=== PATIENT | male | born 1930 | race Caucasian/White ===

== ENCOUNTER → 2016-11-07 | Outpatient (REF) | payer MEDICARE, OTHER ==
[~2016-11-07] MED LIST: ACLI400A2 IH; ARFO15VI IH; AZIT250T5 PO; BRIN8DRO OU; BUDE0.5A5 IH; BUDE10.2 IH; CALC500T55 PO; CHOL10002 PO; ENZA40CA PO; FENT1PAT6 TD; FENT1PAT8 TD; FENT1PAT9 TD; FLT11013 INH; FURO40TA4 PO; HYDR-3811 PO; HYDR-757 PO; LEVO750T39 PO; LORA-404 PO; MIRT15TA98 PO; MOME13HF2 IH; POLY17PO2 PO; PRED10TA PO; PRED20TA PO; SPIR25TA PO; TAMS0.4C2 PO; TIOT18CA IH
[2016-11-07 16:34] LABS: MEAN CORPUSCULAR HGB CONC 33.8 g/dL (31.0-37.0); MEAN CORPUSCULAR VOLUME 93 FL (80-100); MEAN PLATELET VOLUME 8.9 FL (6.0-9.5); PLATELET COUNT 269 10^3uL (150-450); WHITE BLOOD COUNT 8.45 10^3uL (4.0-11.0)
[2016-11-07 17:08] LABS: BAND NEUTROPHILS % 1 % (0-6); EOSINOPHILS % 2 % (0-4); LYMPHOCYTES # 1.5 #; MEAN CORPUSCULAR HEMOGLOBIN 31.5 PG (26.0-34.0); MONOCYTES # 0.4 #; MONOCYTES % 5 % (3-11); SEGMENTED NEUTROPHILS % 74 % (51-67); TOTAL CELLS COUNTED 100
[2016-11-07 17:09] LABS: ALBUMIN 3.4 g/dL (3.4-5.0); ANION GAP 13.9 MEQ/L (3-15); CALCULATED IONIZED CALCIUM 4.3 mg/dL (3.8-4.6); MAGNESIUM* 2.4 mg/dL (1.6-2.3); PHOSPHORUS 3.2 mg/dL (2.4-4.9); RBC MORPH NORMAL (NORMAL); TOTAL PROTEIN 6.1 g/dL (6.4-8.5)
== END ==
LOC: LAB 16:19
PROVIDERS: ATTEND Internal Medicine Hematology & Oncology
DX: C61 Malignant neoplasm of prostate (principal)
CPT/HCPCS: 80053; 83615; 83735; 84100; 84153; 85007; 85027

== ENCOUNTER → 2016-11-29 | Outpatient (CLI) | payer MEDICARE, OTHER | LOC: RAD 10:50 | PROVIDERS: ATTEND Internal Medicine Infectious Disease | DX: J98.4 Other disorders of lung (principal); A31.0 Pulmonary mycobacterial infection | CPT/HCPCS: 71270; Q9967 ==

== ENCOUNTER → 2016-12-05 | Outpatient (REF) | payer MEDICARE, OTHER ==
[2016-12-05 15:15] LABS: MEAN CORPUSCULAR HGB CONC 33.5 g/dL (31.0-37.0); MEAN CORPUSCULAR VOLUME 94 FL (80-100); MEAN PLATELET VOLUME 9.1 FL (6.0-9.5); PLATELET COUNT 332 10^3uL (150-450); WHITE BLOOD COUNT 7.04 10^3uL (4.0-11.0)
[2016-12-05 15:22] LABS: ALBUMIN 3.5 g/dL (3.4-5.0); ANION GAP 16.6 MEQ/L (3-15); CALCULATED IONIZED CALCIUM 4.3 mg/dL (3.8-4.6); MAGNESIUM* 2.4 mg/dL (1.6-2.3); PHOSPHORUS 3.5 mg/dL (2.4-4.9); TOTAL PROTEIN 6.4 g/dL (6.4-8.5)
[2016-12-05 15:27] LABS: MEAN CORPUSCULAR HEMOGLOBIN 31.4 PG (26.0-34.0)
[2016-12-05 15:28] LABS: BAND NEUTROPHILS % 0 % (0-6); EOSINOPHILS % 2 % (0-4); LYMPHOCYTES # 1.9 #; MONOCYTES # 1.1 #; MONOCYTES % 16 % (3-11); SEGMENTED NEUTROPHILS % 55 % (51-67); TOTAL CELLS COUNTED 100
[2016-12-05 15:29] LABS: RBC MORPH NORMAL (NORMAL)
== END ==
LOC: LAB 14:43
PROVIDERS: ATTEND Internal Medicine Hematology & Oncology
DX: C61 Malignant neoplasm of prostate (principal)
CPT/HCPCS: 80053; 83615; 83735; 84100; 84153; 85007; 85027

== ENCOUNTER → 2017-01-02 | Outpatient (REF) | payer MEDICARE, OTHER ==
[2017-01-02 14:30] LABS: MEAN CORPUSCULAR HGB CONC 34.5 g/dL (31.0-37.0); MEAN CORPUSCULAR VOLUME 93 FL (80-100); MEAN PLATELET VOLUME 9.3 FL (6.0-9.5); PLATELET COUNT 243 10^3uL (150-450); WHITE BLOOD COUNT 5.14 10^3uL (4.0-11.0)
[2017-01-02 14:45] LABS: ALBUMIN 3.7 g/dL (3.4-5.0); ANION GAP 15.3 MEQ/L (3-15); MAGNESIUM* 2.3 mg/dL (1.6-2.3); PHOSPHORUS 3.2 mg/dL (2.4-4.9); TOTAL PROTEIN 6.6 g/dL (6.4-8.5)
[2017-01-02 14:49] LABS: MEAN CORPUSCULAR HEMOGLOBIN 31.9 PG (26.0-34.0)
[2017-01-02 14:54] LABS: BAND NEUTROPHILS % 1 % (0-6); EOSINOPHILS % 9 % (0-4); LYMPHOCYTES # 1.7 #; MONOCYTES # 0.6 #; MONOCYTES % 12 % (3-11); RBC MORPH NORMAL (NORMAL); SEGMENTED NEUTROPHILS % 45 % (51-67); TOTAL CELLS COUNTED 100
== END ==
LOC: LAB 13:41 → EDSTATUS 13:43 → LAB 13:43
PROVIDERS: ATTEND Internal Medicine Hematology & Oncology
DX: C61 Malignant neoplasm of prostate (principal)
CPT/HCPCS: 80053; 83615; 83735; 84100; 84153; 85007; 85027

== ENCOUNTER → 2017-01-17 | Outpatient (CLI) | payer MEDICARE, OTHER | LOC: RAD 11:32 | PROVIDERS: ATTEND Ophthalmology | DX: H53.132 Sudden visual loss, left eye (principal); H54.12 Blindness, left eye, low vision right eye | CPT/HCPCS: 70544; 70553; A9579 ==

== ENCOUNTER → 2017-01-30 | Outpatient (REF) | payer MEDICARE, OTHER ==
[2017-01-30 13:46] LABS: MEAN CORPUSCULAR HEMOGLOBIN 31.2 PG (26.0-34.0); MEAN CORPUSCULAR HGB CONC 33.4 g/dL (31.0-37.0); MEAN CORPUSCULAR VOLUME 93 FL (80-100); MEAN PLATELET VOLUME 8.9 FL (6.0-9.5); PLATELET COUNT 310 10^3uL (150-450); WHITE BLOOD COUNT 7.41 10^3uL (4.0-11.0)
[2017-01-30 13:49] LABS: BAND NEUTROPHILS % 0 % (0-6); EOSINOPHILS % 4 % (0-4); LYMPHOCYTES # 2.1 #; MONOCYTES # 0.5 #; MONOCYTES % 7 % (3-11); RBC MORPH NORMAL (NORMAL); SEGMENTED NEUTROPHILS % 61 % (51-67); TOTAL CELLS COUNTED 100
[2017-01-30 14:02] LABS: ALBUMIN 3.5 g/dL (3.4-5.0); ANION GAP 15.3 MEQ/L (3-15); MAGNESIUM* 2.4 mg/dL (1.6-2.3); PHOSPHORUS 3.5 mg/dL (2.4-4.9); TOTAL PROTEIN 6.4 g/dL (6.4-8.5)
== END ==
LOC: LAB 13:32
PROVIDERS: ATTEND Internal Medicine Hematology & Oncology
DX: C61 Malignant neoplasm of prostate (principal)
CPT/HCPCS: 80053; 83615; 83735; 84100; 84153; 85007; 85027

== ENCOUNTER → 2017-02-06 | Outpatient (CLI) | payer MEDICARE, OTHER ==
[~2017-02-06] MED LIST changes: +HYDR-4131 PO; -HYDR-757 PO
--- NOTE | 2017-02-06 09:52 | Diagnostic Imaging Report ---
PROCEDURE: CT chest and pelvis with and abdomen with and without contrast. TECHNIQUE: Multiple contiguous axial images were obtained through the chest, abdomen, and pelvis after the uneventful bolus administration of intravenous contrast. Precontrast acquisitions were acquired through the abdomen. INDICATION: Prostate cancer. COMPARISON: Chest CT of 11/29/2016 and the most recent abdominal/pelvic imaging from 07/15/2015. FINDINGS: CT CHEST: There are zones of bronchiectasis in the lingula and right middle lobe, unchanged. Air trapping and COPD are chronic. There is some pleural/parenchymal scarring in the apices, unchanged. Some very slight nodular interstitial opacities in the periphery of the right upper lobe are unchanged. No dominant soft tissue mass. No appreciable thoracic lymphadenopathy. A superficial subcutaneous cyst in the left paramedian at the level of the xiphoid is unchanged, presumed a sebaceous cyst measuring 2.9 cm. No acute appearing soft tissue chest wall pathology. Widespread osteosclerotic bony metastases show no obvious progression. No thoracic effusion or pneumothorax. CT ABDOMEN/PELVIS: There is no abdominal/pelvic retroperitoneal nor mesenteric lymphadenopathy. There is no bowel, biliary, or urinary tract obstruction. The liver, adrenals, pancreas, and spleen are unremarkable. No ascites, abscess, hematoma, or other fluid collection. The widespread osteosclerotic bony metastatic disease shows no substantial change. IMPRESSION: The bony metastatic disease, osteosclerotic in the chest, abdomen, and pelvis, is unchanged. There are no findings to suggest soft tissue metastatic disease on this study. Chronic bronchiectasis, scarring, and air trapping within the lungs are stable. No acute pathology. Dictated by: Dictated on workstation # [id number]
== END ==
LOC: RAD 07:55
PROVIDERS: ATTEND Internal Medicine Hematology & Oncology
DX: C61 Malignant neoplasm of prostate (principal)
CPT/HCPCS: 71260; 74178; Q9967

== ENCOUNTER → 2017-02-07 | Outpatient (CLI) | payer MEDICARE, OTHER ==
--- NOTE | 2017-02-07 13:48 | Diagnostic Imaging Report ---
INDICATION: Prostate cancer surveillance. COMPARISON: Bone scan from 02/25/[address] chest, abdomen and pelvis from 02/06/2017. TECHNIQUE: Anterior and posterior scintigraphic images of the whole body were obtained after the intravenous injection of mCi of Tc-99m MDP. FINDINGS: Numerous foci of abnormal radiopharmaceutical uptake throughout the axial skeleton has not significantly changed since 09/01/2014 examination. However, since most recent bone scan of 02/25/2016, the degree of osseous metastases has progressed. There are multifocal lesions throughout the bilateral ribs, clavicles, thoracic and lumbar vertebral bodies as well as in the pelvis. There are new foci of uptake in the bilateral proximal femurs. IMPRESSION: 1. Progression of osseous metastases throughout the axial skeleton, as well as multiple new osseous metastasis in the proximal femurs. Dictated by: Dictated on workstation # [id number]
== END ==
LOC: RAD 08:09
PROVIDERS: ATTEND Internal Medicine Hematology & Oncology
DX: C61 Malignant neoplasm of prostate (principal)
CPT/HCPCS: 78306; A9503

== ENCOUNTER → 2017-02-24 | Outpatient (REF) | payer MEDICARE, OTHER ==
[~2017-02-24] MED LIST changes: +ABIR250T PO; +ALBU1.25 IH; +ARFO15VI2 IH; +BUDE0.255 IH; +CALC1CAP21 PO; +FENT1PAT10 TD; +GFN600TCR PO; +MIDO10TA PO; +NSTU5 PO; +OMEP40CA36 PO; +OXYC10SY PO; +OXYC1TAB12 PO; +POLY17PO6 PO
== END ==
LOC: LAB 16:02
PROVIDERS: ATTEND Ophthalmology
DX: H53.132 Sudden visual loss, left eye (principal)
CPT/HCPCS: 85652; 86140

== ENCOUNTER 2017-02-28 07:52 | Inpatient (IN) | payer MEDICARE, OTHER ==
[~2017-02-28] VITALS: Ht 177.8 cm; Wt 96.2 kg
[~2017-02-28 07:52] MED LIST changes: -ABIR250T PO; -ALBU1.25 IH; -ARFO15VI2 IH; -BUDE0.255 IH; -CALC1CAP21 PO; -FENT1PAT10 TD; -GFN600TCR PO; -MIDO10TA PO; -NSTU5 PO; -OMEP40CA36 PO; -OXYC10SY PO; -OXYC1TAB12 PO; -POLY17PO6 PO
--- OUTSIDE RECORDS SUMMARY | 2017-02-28 07:58 | XMS REPORT | Summary of Care ---
Author Author Carmen Edmonds, FACP,, Darron F Organization Unknown Address [address] [place], [place] [id number] Phone Unavailable Care Team Providers Care Custom Tailor Name Role Phone Keiko Edmonds, O Unavailable Unavailable Valdez Mobley PP Unavailable Unavailable Unavailable Functional Status Functional Status Health Issues Name Dates Details Functional status health issues are not documented Status: Cognitive Status Health Issues Name Dates Details Cognitive status health issues are not documented Status: Problems Name Dates Details Tinnitus (388.30, H93.19) Status: Active Swelling of lower extremity (729.81, M79.89) Status: Active Chronic obstructive pulmonary disease (496, J44.9) Status: Active Bronchiectasis without complication (494.0, J47.9) Status: Active Internal hemorrhoids (455.0, K64.8) Status: Active Sensorineural hearing loss, 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 Refills: 0 Started 10-Mar-2014 ActiveHydrocodone-Acetaminophen 7.5-325 MG Oral Tablet Refills: 0 Hemanth Aden M.D. Started 11-Dec-2014 ActiveFurosemide 40 MG Oral Tablet TAKE 1 TABLET DAILY. Refills: 0 Started 04-Mar-2015 ActiveSpironolactone 25 MG Oral Tablet Refills: 0 Started 04-Mar-2015 ActiveSimbrinza 1-0.2 % Ophthalmic Suspension Refills: 0 Hemanth Aden M.D. Started 29-Oct-2015 ActiveFentaNYL 50 MCG/HR Transdermal Patch 72 Hour USE DIRECTED. Refills: 0 Hemanth Aden M.D. Started 29-Oct-2015 ActiveSpiriva HandiHaler 18 MCG Inhalation Capsule INHALE CONTENTS OF 1 CAPSULE ONCE DAILY. Quantity: 30 Refills: 5 Hemanth Aden M.D. Started 29-Oct-2015 ActiveDulera 100-5 MCG/ACT Inhalation Aerosol Refills: 0 Hemanth Aden M.D. Started 29-Oct-2015 ActiveTamsulosin HCl - 0.4 MG Oral Capsule Refills: 0 Hemanth Aden M.D. Started 29-Oct-2015 ActiveOxygen hs Refills: 0 Started 26-Jan-2016 ActiveAtivan 0.5 MG Oral Tablet TAKE 1 TABLET 3 TIMES DAILY. Refills: 0 Hemanth Aden M.D. Started 17-Mar-2016 ActiveAlbuterol Sulfate (2.5 MG/3ML) 0.083% Inhalation Nebulization Solution USE 1 UNIT DOSE IN NEBULIZER EVERY 4 TO 6 HOURS NEEDED. Dx: J47.1 Quantity: 1 Refills: 11 Hemanth Aden M.D. Started 17-Mar-2016 Active3 ML Plas Cont (60 Plas Conts) Allergies and Adverse Reactions Name Dates Details Bactericin OINT Status: Active budesonide Status: Active Penicillins Status: Active Past Medical History Name Dates Details History of Incarcerated umbilical hernia (552.1, K42.0) Status: Resolved History of Infective otitis externa (380.10, H60.399) Status: Resolved History of pneumonia (V12.61, Z87.01) Status: Resolved History of Umbilical hernia (553.1, K42.9) Status: Resolved Procedures Procedure Dates Details History of Nasal Endoscopy With Dacryocystorhinostomy Completed:15-Sep-2009 History of Maxillary Sinus Endoscopy With Polypectomy Completed:15-Sep-2009 History of Foot Surgery History of Tonsillectomy History of Cataract Extraction History of Incarcerated Umbilical Hernia Repair For Person Over Age 5 Completed:31-Dec-2015 Procedures not documented Immunization Name Dates Details Immunizations not documented Family History natural daughter Name Dates Details Family history of malignant neoplasm of thyroid (V16.8, Z80.8) Status: Active aunt Name Dates Details Family history of lung disease (V19.8, Z83.6) Status: Active Mother Name Dates Details Family history of stroke (V17.1, Z82.3) Status: Active Family history of myocardial infarction (V17.3, Z82.49) Status: Active Father Name Dates Details Family history of congestive heart failure (V17.49, Z82.49) Status: Active Grandfather Name Dates Details Family history of asthma (V17.5, Z82.5) Status: Active Social History Name Dates Details Smoking StatusFormer smoker Vital Signs Date Test Result Details 17-Mar-2016 14:45 BP Systolic 124 mm[Hg] Status: BP Diastolic 78 mm[Hg] Status: Heart Rate 78 /min Status: O2 SAT 97 % Status: FiO2 flow rate 2 L/min Status: Results Date Description Value Details Results not documented Plan of Care Planned Observations Name Dates Details Planned Goals not documented Goal Planned Encounters Appointment; Provider: Manav Simon On 31-Dec-2015 12:30 Appointment; Provider: Mario Stanton On 15-Sep-2009 08:00 Appointment; Provider: Mario Stanton On 15-Jul-2008 09:00 Instructions Instructions not documented Encounters Appointment; Hemanth Aden Encounter Diagnosis: Problem not documented On 17-Mar-2016 14:45 Appointment; Mario Stanton Encounter Diagnosis: Problem not documented On 15-Feb-2016 14:45 Appointment; Manav Simon Encounter Diagnosis: Problem not documented On 26-Jan-2016 13:15 Appointment; Manav Simon Encounter Diagnosis: Problem not documented On 12-Jan-2016 13:00 Appointment; Manav Simon Encounter Diagnosis: Problem not documented On 29-Dec-2015 10:30 Appointment; Hemanth Aden Encounter Diagnosis: Problem not documented On 24-Dec-2015 13:45 Appointment; Hemanth Aden Encounter Diagnosis: Problem not documented On 29-Oct-2015 14:15 Appointment; Hemanth Aden Encounter Diagnosis: Problem not documented On 13:00 Appointment; Romie Schwab Encounter Diagnosis: Problem not documented On 04-Mar-2015 13:30 Appointment; Hemanth Aden Encounter Diagnosis: Problem not documented On 22-Jan-2015 14:45 Appointment; Hemanth Aden Encounter Diagnosis: Problem not documented On 11-Dec-2014 14:15 Appointment; Hemanth Aden Encounter Diagnosis: Problem not documented On 07-Aug-2014 14:45 Appointment; Hemanth Aden Encounter Diagnosis: Problem not documented On 15:30
[2017-02-28 08:09] LABS: BASOPHILS % (AUTO) 0 % (0-2); EOSINOPHILS % (AUTO) 0 % (0-4); LYMPHOCYTES # (AUTO) 1.4 X10^3; MEAN CORPUSCULAR HEMOGLOBIN 30.9 PG (26.0-34.0); MEAN CORPUSCULAR HGB CONC 32.8 g/dL (31.0-37.0); MEAN CORPUSCULAR VOLUME 94 FL (80-100); MONOCYTES # (AUTO) 1.6 X10^3; MONOCYTES % (AUTO) 13 % (3-11); NEUTROPHILS % (AUTO) 72 % (51-67); PLATELET COUNT 245 10^3uL (150-450); WHITE BLOOD COUNT 12.35 10^3uL (4.0-11.0)
[2017-02-28] MEDS ORDERED: NS IV 500 ML 500 ML IV SCH (08:15)
[2017-02-28 08:22] LABS: ALBUMIN 2.9 g/dL (3.4-5.0); ANION GAP 14.1 MEQ/L (3-15); TOTAL PROTEIN 5.6 g/dL (6.4-8.5)
[2017-02-28] MEDS ORDERED: GFN600TCR PO (08:34)
[2017-02-28] MEDS ORDERED: BUDE0.255 IH (08:34)
[2017-02-28] MEDS ORDERED: ARFO15VI2 IH (08:34)
[2017-02-28] MEDS ORDERED: OXYC10SY PO (08:34)
[2017-02-28] MEDS ORDERED: ABIR250T PO (08:34)
[2017-02-28] MEDS ORDERED: MIDO10TA PO (08:34)
[2017-02-28] MEDS ORDERED: OMEP40CA36 PO (08:34)
[2017-02-28] MEDS ORDERED: AZIT250T5 PO (08:34)
--- NOTE | 2017-02-28 09:02 | Diagnostic Imaging Report ---
INDICATION: Shortness of breath and chest pain. TECHNIQUE: A frontal chest was obtained at 0842 hours. COMPARISON: 03/14/2016. FINDINGS: There are scattered sclerotic changes in the visualized bony structures, compatible with bony metastatic disease. The heart is mildly enlarged. There is some patchy infiltrate or atelectasis in both lung bases. There is no pneumothorax or pleural fluid. IMPRESSION: Mild cardiomegaly. Patchy infiltrate versus atelectasis in both lung bases which appears at least partially chronic compared to the previous study. There are sclerotic bony changes overlying the rib cage and thoracic spine, compatible with bony metastatic disease. Correlate with the recent CT study of 02/06/2017. Dictated by: Dictated on workstation # [id number]
--- NOTE | 2017-02-28 09:17 | NUR ---
PT O2 SATS REMAIN MID 90S SO O2 DECREASED TO 1L/NC LEFT IN PT MOUTH HE CONT TO MOUTH BREATHE. DAUGHTER AT BEDSIDE. PT HAS [address] ON RT BACK ON ARRIVAL TO ED TOTALING 100MCG. ORAL MOIST SWABS USED FREQ FOR PT DRY MOUTH. CL
[2017-02-28] MEDS ORDERED: MEROPENEM 500 MG in SODIUM CHLORIDE 50 ML IV ONE (10:05)
--- NOTE | 2017-02-28 10:12 | NUR ---
PT REQUESTS FOOD. DR JULITO HASSAN MEAL TRAY. CL
[2017-02-28 10:44] LABS: BILIRUBIN,URINE Negative (Negative); CLARITY,URINE Clear; COLOR,URINE Dark Yellow; GLUCOSE, URINE (UA) Negative (Negative); LEUKOCYTE ESTERASE ,URINE Negative (Negative); PH,URINE 5.5 (5.0 - 8.0); URINE CENTRIFUGED VOLUME 12 mL
[2017-02-28 10:49] LABS: RBC,URINE None Seen /HPF
--- NOTE | 2017-02-28 10:55 | NUR ---
LOLA TEXTED TO CALL THIS RN FOR PT REPORT GOING TO RM 310. CL
[2017-02-28 11:54] VITALS: BP 129/73
--- NOTE | 2017-02-28 12:33 | NUR ---
patient arrives to room 310. admission assessment in process
[2017-02-28] MEDS ORDERED: FENT1PAT10 TD (13:09)
[2017-02-28] MEDS ORDERED: NSTU5 PO (13:16)
[2017-02-28] MEDS ORDERED: FURO40TA4 PO (13:16)
[2017-02-28] MEDS ORDERED: OXYC1TAB12 PO (13:16)
[2017-02-28] MEDS ORDERED: HYDR-3811 PO (13:16)
[2017-02-28] MEDS ORDERED: POLY17PO6 PO (13:16)
[2017-02-28] MEDS ORDERED: CALC1CAP21 PO (13:16)
[2017-02-28] MEDS ORDERED: ALBU1.25 IH (13:16)
--- NOTE | 2017-02-28 13:35 | NUR ---
Med Rec completed via list from Mustapha Moreau.
--- NOTE | 2017-02-28 14:03 | History and Physical (E) ---
History & Physical PCP: Dr. Itz Davidson CC: Acute respiratory Distress, Pneumonia HPI: Pranav is a 86 year old male who comes to the ED for acute respiratory distress, SOA , CXR shows pneumonia, Oxygen sats 84% this am on 2l/NC. He comes in from [facility]. PMH: COPD Asthma Chronic bronchitis Skin and prostate cancer Bone cancer- Stage , Dr Davidson Temporal Arteritis- Dr Yoo Metastatic prostate cancer History of tobacco abuse Constipation Chronic back pain Glaucoma History of pneumonia Iliac vein DVT BPH Periumbilical hernia Herpetic neuralgia Hemorrhoids Pancreatic cyst (has seen Dr. 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 HOME MEDICATIONS: Please see list at end of report. FH Father had CHF, mother had CVA, Alzheimer's and asthma. SH: Lives independently, alone, in his own home in [place]. Daughter and ex- live outside of [facility]. Quit smoking in his 30's. Drinks beer occasionally, more in the summer. No drug use. Still drives. Has a cat at home. ROS CONSTITUTION: Denies weight loss or gain. Denies fever or chills. HEENT: No change in vision or hearing. No sores in mouth, sore throat. CV: No chest pain, palpitations. PULM: Endorses shortness of breath, difficulty breathing. GI: No upset stomach, nausea, vomiting, constipation, or diarrhea. No blood in stool. : No dysuria. No blood in urine. MS: No new muscle or joint aches and pains. NEURO: No numbness or tingling. No weakness. INTEG: No rashes, lesions, or sores. ENDO: No heat or cold intolerance. No polydipsia or polyuria. HEME/LYMPH: No easy bruising or bleeding. No swollen glands. PSYCH: No change in mood or behavior. OBJECTIVE Vitals: Vital Signs Date Time Temp Pulse Resp B/P Pulse Ox O2 Delivery O2 Flow Rate FiO2 02/28/17 11:54 97.8 93 20 92 Room air 02/28/17 08:18 2 02/28/17 08:03 91/43 GEN: Awake, alert, oriented, NAD HEENT: EOMI, PERRL, moist oral mucosa. CV: RRR S1 S2 normal with no murmur LUNGS: CTA B ABD: Soft, NT/ND with normal bowel sounds. EXTR: No C/C/E. Normal peripheral pulses. INTEG: No rash. NEURO: No focal motor neuro deficit. Weight: 92.4 kg LABS: Laboratory Results Past 24 Hrs 02/28/17 07:38: Alanine Aminotransferase (ALT/SGPT) 24, Albumin 2.9, Albumin/Globulin Ratio 1.074, Alkaline Phosphatase 632, Anion Gap 14.1, Aspartate Amino Transf (AST/ SGOT) 15, BUN/Creatinine Ratio 20, Basophils # (Auto) 0.0, Basophils (%) (Auto) 0, Blood Urea Nitrogen 21, C-Reactive Protein 22.20, Calcium Level 8.1, Calcium/ Ionized Calcium Ratio 4.0, Calculated Osmolality 273, Carbon Dioxide Level 26, Chloride Level 102, Creatinine 1.03, Eosinophils # (Auto) 0.0, Eosinophils (%) ( Auto) 0, Erythrocyte Sedimentation Rate 72, Estimat Glomerular Filtration Rate 83.2, Estimated GFR (Non- 68.8, Glucose Level 158, Hematocrit 32.60, Hemoglobin 10.7, Lymphocytes # (Auto) 1.4, Lymphocytes (%) (Auto) 12, Mean Corpuscular Hemoglobin 30.9, Mean Corpuscular Hemoglobin Concent 32.8, Mean Corpuscular Volume 94, Mean Platelet Volume 9.0, Monocytes # (Auto) 1.6, Monocytes (%) (Auto) 13, Neutrophils # (Auto) 9.0, Neutrophils (%) (Auto) 72, Platelet Count 245, Potassium Level 4.4, Red Blood Count 3.46, Red Cell Distribution Width 13.4, Sodium Level 138, Total Bilirubin 1.1, Total Protein 5.6, White Blood Count 12.35 02/28/17 10:05: Urine Bacteria None seen, Urine Bilirubin Negative, Urine Blood Negative, Urine Clarity Clear, Urine Collection Type Clean catch, Urine Color Dark yellow, Urine Glucose (UA) Negative, Urine Hyaline Casts 1+, Urine Ketones 2+, Urine Leukocyte Esterase Negative, Urine Microscopic RBC None seen, Urine Mucus 1+, Urine Nitrite Negative, Urine Protein 1+, Urine Specific [place] 1.025, Urine Squamous Epithelial Cells 0-2, Urine Urobilinogen 1.0, Urine WBC None seen, Urine pH 5.5, Volume Urine Centrifuged 12 ml IMAGING FINDINGS: There are scattered sclerotic changes in the visualized bony structures, compatible with bony metastatic disease. The heart is mildly enlarged. There is some patchy infiltrate or atelectasis in both lung bases. There is no pneumothorax or pleural fluid. IMPRESSION: Mild cardiomegaly. Patchy infiltrate versus atelectasis in both lung bases which appears at least partially chronic compared to the previous study. There are sclerotic bony changes overlying the rib cage and thoracic spine, compatible with bony metastatic disease. Correlate with the recent CT study of 02/06/2017. ASSESSMENT Pranav Breen is a 86 year old male admitted from ED 02-28-17 for acute respiratory distress attributed to community acquired pneumonia in the setting of stage IV COPD. He has chronic medical problems including metastatic prostate cancer and chronic pain. PLAN * SIRS/Sepsis: Attributed to community acquired pneumonia. Treating underlying problems. Cultures pending. * Acute Respiratory Distress: Attributed to CAP. Duoneb scheduled, albuterol PRN. Oxygen protocol. * Community Acquired Pneumonia: Blood culture pending, sputum culture pending sample. Added guaifenesin. Levofloxacin given in ED. Low threshold to switch therapy because he was levofloxacin recently for a pancreatic cyst infection. For now, continue for now x 7 days. * COPD/Asthma with Acute Exacerbation: * Fever: Acetaminophen. * BLE Edema: Chronic, stable, attributed to chronic lung disease. Compression hose if worsening. Resume furosemide as sepsis resolves. Continue spirolactone. Daily weight, I&O. * F/E/N: Cardiac diet. Encourage PO fluid intake. Got bolus NS in ED. Peripheral IV. Daily weight, I&O. * Prophylaxis: Enoxaparin * Code Status: DNR * Disposition: Inpatient status for above issues. Anticipate 3-4 day stay. May need for skilled care since he lives home alone. CHRONIC ISSUES * Prostate Cancer, Stage 4, Metastatic: Follows with Dr. Davidson and gets hormonal therapies. * BPH: Tamsulosin * Chronic Pain, OA: [place], fentanyl patch * Lower extremity edema: * Umbilical Hernia: * Neuralgia from Shingles: Observe * Constipation: Bowel regimen * Hemorrhoids: Monitor for bleeding. Bowel regimen. Pt seen and examined with FL[employer] COMMUNICATIONS OFFICER, agree with above. Will do respiratory panel to see if we can pinpoint the infection. Daughter says he was on ethambutol and azithromycin for MAC, but decided to stop the ethambutol about a mo ago due to possible loss of vision. He saw Dr. Yoo last week for vision changes and she was concerned for temporal arteritis. His CRP and ESR were elevated then, but are quite a bit more elevated today. He is scheduled for temporal artery bx tomorrow. Will need to check with Dr. Jacobo about this and see how he wants to proceed. Also talked with Dr. Yoo who is very concerned about the additional elevation in inflammation markers. Will continue the prednisone for now and recheck lab tomorrow. Also continue meropenem for presumed pneumonia. AH Allergies/Home Medications Allergies: Coded Allergies: Penicillins (Verified Allergy, Unknown, CAN TAKE AMOXIL., 03/19/16) dexamethasone (Verified Allergy, Unknown, 03/19/16) PER [facility] neomycin (Verified Allergy, Unknown, 03/19/16) PER [facility] polymyxin B sulfate (Verified Allergy, Unknown, 03/19/16) PER [facility] Reported Home Medications Scheduled Abiraterone Acetate (Zytiga) 1,000 MG PO DAILY (Reported) Arformoterol Tartrate (Brovana) 15 MCG IH BID (Reported) Azithromycin (Azithromycin) 250 MG PO DAILY (Reported) Brinzolamide/Brimonid Tart (Simbrinza 1%-0.2% Eye Drops) 1 DROP OU DAILY ( Reported) Budesonide (Pulmicort) 0.25 MG IH BID (Reported) Calcium Carbonate/Vitamin D3 (Calcium 600 + D3 Softgel) 1 EACH PO BID (Reported ) Fentanyl (Fentanyl Patch 75mcg/hr) 1 EACH TD Q72H (Reported) Midodrine HCl (Midodrine HCl) 10 MG PO TID (Reported) Mirtazapine (Mirtazapine) 15-30 MG PO HS (Reported) Nystatin (Mycostatin 100,000 units/ml) 5 ML PO BID (Reported) Omeprazole (Omeprazole) 40 MG PO DAILY (Reported) Polyethylene Glycol 3350 (Miralax) 17 GM PO BID (Reported) Prednisone (Prednisone) 20 MG PO DAILY (Reported) Tamsulosin HCl (Tamsulosin HCl) 0.4 MG PO DAILY (Reported) Scheduled PRN Albuterol Sulfate (Albuterol Sulfate) 1.25 MG IH QID PRN PRN DYSPNEA (Reported) Furosemide (Furosemide) 20-40 MG PO DAILY PRN PRN edema (Reported) Guaifenesin (Mucinex) 600 MG PO BID PRN PRN COUGH (Reported) Hydrocodone/Acetaminophen ([place] 7.5mg/325mg) 2 TAB PO BID PRN PRN PAIN ( Reported) Lorazepam (Ativan) 0.5 MG PO Q8H PRN PRN ANXIETY Oxycodone HCl/Acetaminophen (Percocet 10mg/325mg) 1 TAB PO Q4H PRN PRN PAIN ( Reported) Discontinued Medications Calcium Carbonate (Calcium) 500 MG PO DAILY (Reported) Discontinued Reason: Course completed Cholecalciferol (Vitamin D3) (Vitamin D3) 1,000 UNIT PO DAILY (Reported) Discontinued Reason: Course completed Enzalutamide (Xtandi) 160 MG PO DAILY (Reported) Discontinued Reason: Course completed Furosemide (Furosemide) 40 MG PO DAILY (Reported) Discontinued Reason: Course completed Hydrocodone/Acetaminophen ([place] 7.5mg/325mg) 2 TAB PO QID PRN PRN PAIN ( Reported) Discontinued Reason: Course completed Mometasone/Formoterol (Dulera 100 mcg/5 mcg Inhaler) 13 GM IH BID (Reported) Discontinued Reason: Course completed Oxycodone HCl (Oxycodone HCl) 15 MG PO NEEDED (Reported) Discontinued Reason: Course completed Polyethylene Glycol 3350 (Miralax) 17 GM PO DAILY (Reported) Discontinued Reason: Course completed Spironolactone (Aldactone) 25 MG PO DAILY (Reported) Discontinued Reason: Course completed Tiotropium [place] (Spiriva) 18 MCG IH DAILY (Reported) Discontinued Reason: Course completed Copies to: End of Report . Melani Mays APRN February 28, 2017 14:03 Kevin Hunt MD February 28, 2017 21:08
[2017-02-28] MEDS ORDERED: ACETAMINOPHEN 325 MG TAB (TYLENOL) PO PRN (14:20)
[2017-02-28] MEDS ORDERED: ONDANSETRON 2 MG/ML (Z0FRAN) 2 ML VIAL IV PRN (14:20)
[2017-02-28] MEDS ORDERED: guaiFENesin ER 600 MG (MUCINEX) TAB PO PRN (14:25)
[2017-02-28] MEDS ORDERED: fentaNYL PATCH 75 MCG (DURAGESIC) TD SCH (14:25)
[2017-02-28] MEDS ORDERED: ALBUTEROL SULFATE 1.25 MG IH PRN (14:25)
[2017-02-28] MEDS ORDERED: ALBUTEROL 0.083% NEB SOLUTION 2.5 MG/3 ML VIAL INH PRN (14:40)
[2017-02-28] MEDS ORDERED: fentaNYL PATCH 50 MCG (DURAGESIC) TD SCH (15:00)
[2017-02-28] MEDS: ENOXAPARIN 40 MG/0.4 ML (LOVENOX) SYR SC SCH (15:02)
[2017-02-28] MEDS: MEROPENEM 1 GM in SODIUM CHLORIDE 100 ML IV SCH ×2 (15:02→21:12)
--- NOTE | 2017-02-28 15:05 | NUR ---
Pt found sleeping in bed on 2 l/min NC, SPO2 92%, HR 80, RR 16 and non labored at this time. BS have rales throughout, no wheezes or rhonchi heard at this time.
[2017-02-28] MEDS: HYDROcodone/APAP 7.5 MG/325 MG (NORCO) TABLET PO PRN (15:44)
[2017-02-28 16:13] VITALS: BP 115/59
[2017-02-28] MEDS ORDERED: AZITHROMYCIN 250 MG TAB (ZITHROMAX) PO SCH (17:45)
[2017-02-28] MEDS: AZITHROMYCIN 250 MG TAB (ZITHROMAX) PO SCH (17:59)
[2017-02-28] MEDS: MIDODRINE 5 MG PO SCH (17:59)
[2017-02-28] MEDS ORDERED: MIDODRINE HCL 10 MG PO SCH (18:00)
--- NOTE | 2017-02-28 18:54 | NUR ---
Report given to Estevan COOPER and care relinquished
[2017-02-28] MEDS ORDERED: BUDESONIDE NEBS 0.25 MG/2 ML (PULMICORT) AMP INH ONE (19:16)
[2017-02-28] MEDS: BUDESONIDE NEBS 0.25 MG/2 ML (PULMICORT) AMP INH SCH (19:17)
[2017-02-28] MEDS: ARFORMOTEROL NEB SOLUTION (BROVANA) 15 MCG/2 ML VIAL IH SCH (19:17)
--- NOTE | 2017-02-28 19:21 | NUR ---
Pt found lying in bed awake, SPO2 91%, HR 82, RR 16 and non labored with clear but very diminished BS. Brovana given via SVN followed separately by .25 mg Pulmicort. BS unchanged post Tx.
[2017-02-28] MEDS: POLYETHYLENE GLYCOL 17 GM (MIRALAX) PACKET PO SCH (21:00)
[2017-02-28] MEDS: CALCIUM CARBONATE 500 MG + VITAMIN D 200 IU TABLET PO SCH (21:12)
[2017-02-28] MEDS: MIRTAZAPINE 15 MG (REMERON) TABLET PO SCH (21:12)
[2017-02-28] MEDS: NYSTATIN ORAL SUSPENSION 5 ML UDC PO SCH (21:12)
[2017-02-28] MEDS: oxycODONE/ACETAMINOPHEN 10MG-325 MG (PERCOCET-10) TABLET PO PRN (21:12)
[2017-02-28] MEDS ORDERED: MEROPENEM 500 MG IV SCH (22:00)
[2017-03-01] VITALS: BP 110/55
[2017-03-01 06:07] LABS: MEAN CORPUSCULAR HGB CONC 32.4 g/dL (31.0-37.0); MEAN CORPUSCULAR VOLUME 96 FL (80-100); MEAN PLATELET VOLUME 8.8 FL (6.0-9.5); PLATELET COUNT 199 10^3uL (150-450); WHITE BLOOD COUNT 7.11 10^3uL (4.0-11.0)
[2017-03-01] MEDS: PANTOPRAZOLE 40 MG (PROTONIX) TAB PO SCH (06:20)
[2017-03-01] MEDS: MEROPENEM 1 GM in SODIUM CHLORIDE 100 ML IV SCH ×3 (06:20→21:34)
[2017-03-01 06:56] LABS: ALBUMIN 2.4 g/dL (3.4-5.0); ANION GAP 6.7 MEQ/L (3-15); CALCULATED IONIZED CALCIUM 3.9 mg/dL (3.8-4.6); TOTAL PROTEIN 5.1 g/dL (6.4-8.5)
[2017-03-01 07:13] LABS: BAND NEUTROPHILS % 0 % (0-6); EOSINOPHILS % 1 % (0-4); LYMPHOCYTES # 1.7 #; MONOCYTES # 0.8 #; MONOCYTES % 12 % (3-11)
[2017-03-01 07:14] LABS: RBC MORPH NORMAL (NORMAL); SEGMENTED NEUTROPHILS % 61 % (51-67); TOTAL CELLS COUNTED 100
[2017-03-01] MEDS: ARFORMOTEROL NEB SOLUTION (BROVANA) 15 MCG/2 ML VIAL IH SCH ×2 (08:00→19:54)
[2017-03-01] MEDS: BUDESONIDE NEBS 0.25 MG/2 ML (PULMICORT) AMP INH SCH ×2 (08:00→19:55)
--- NOTE | 2017-03-01 08:00 | NUR ---
Requested O2 off. Brit RN reports O2sat 95% on 1 L. O2 removed. Patient assisted up to BR. After returning to chair resp labored. O2 sat 86-88% RA P-125. Patient informed of need for O2. O2 replaced at 1L/NC. RT informed of patient's drop in O2 sat and VS.
[2017-03-01 08:24] VITALS: BP 118/56
--- NOTE | 2017-03-01 08:34 | Progress Note (E) ---
Progress Note S: Awake and alert, continues to have his generalized pains O: I & O Past 24 hrs 03/01/17 07:00 Intake Total 556 ml Output Total 0 ml Balance 556 ml Intake Oral 556 ml Output Urine Total 0 ml Vital Signs Date Time Temp Pulse Resp B/P Pulse Ox O2 Delivery O2 Flow Rate FiO2 03/01/17 08:24 97.6 88 18 118/56 94 Nasal cannula 02/28/17 08:18 2 GEN: Awake, alert, oriented, NAD HEENT: EOMI, PERRL, moist oral mucosa. CV: RRR S1 S2 normal with no murmur LUNGS: CTA B DBS bases ABD: Soft, NT/ND with normal bowel sounds. EXTR: No C/C/E. Normal peripheral pulses. INTEG: No rash. NEURO: No focal motor neuro deficit. Weight: 92.4 kg Laboratory Results Past 24 Hrs 02/28/17 10:05: Urine Bacteria None seen, Urine Bilirubin Negative, Urine Blood Negative, Urine Clarity Clear, Urine Collection Type Clean catch, Urine Color Dark yellow, Urine Glucose (UA) Negative, Urine Hyaline Casts 1+, Urine Ketones 2+, Urine Leukocyte Esterase Negative, Urine Microscopic RBC None seen, Urine Mucus 1+, Urine Nitrite Negative, Urine Protein 1+, Urine Specific [place] 1.025, Urine Squamous Epithelial Cells 0-2, Urine Urobilinogen 1.0, Urine WBC None seen, Urine pH 5.5, Volume Urine Centrifuged 12 ml 02/28/17 17:50: Adenovirus (PCR) Negative, Bordetella parapertussis DNA (PCR) Negative, Chlamydophila pneumoniae (PCR) Negative, Coronavirus Type 229E (PCR) Negative, Coronavirus Type HKU1 (PCR) Negative, Coronavirus Type NL63 (PCR) Negative, Coronavirus Type OC43 (PCR) Negative, Enterovirus/Rhinovirus (PCR) Negative, Human Metapneumovirus (PCR) Negative, Influenza Type A (H1) (PCR) Negative, Influenza Virus Type B (PCR) Negative, Mycoplasma pneumoniae (PCR) Negative, Parainfluenza Type 1 (PCR) Negative, Parainfluenza Type 2 (PCR) Negative, Parainfluenza Type 3 (PCR) Negative, Parainfluenza Type 4 (PCR) Negative, Respiratory Syncytial Virus (PCR) Negative 03/01/17 05:30: Absolute Band Neutrophils 0.0, Alanine Aminotransferase (ALT/SGPT) 28, Albumin 2.4, Albumin/Globulin Ratio 0.888, Alkaline Phosphatase 426, Anion Gap 6.7, Aspartate Amino Transf (AST/SGOT) 10, Atypical Lymphocytes 2, BUN/Creatinine Ratio 19, Band Neutrophils % 0, Basophils # (Auto) , Basophils # (Manual) 0.0, Basophils % (Manual) 0, Basophils (%) (Auto) , Blood Morphology Comment Normal, Blood Urea Nitrogen 19, C-Reactive Protein 21.90, Calcium Level 7.4, Calcium/ Ionized Calcium Ratio 3.9, Calculated Osmolality 275, Carbon Dioxide Level 32, Chloride Level 106, Creatinine 0.98, Differential Total Cells Counted 100, Eosinophils # 0.1, Eosinophils # (Auto) , Eosinophils % (Manual) 1, Eosinophils (%) (Auto) , Estimat Glomerular Filtration Rate 88.2, Estimated GFR (Non- 72.9, Glucose Level 113, Hematocrit 28.10, Hemoglobin 9.1, Lymphocytes # 1.7, Lymphocytes # (Auto) , Lymphocytes % (Manual) 24, Lymphocytes (%) (Auto) , Mean Corpuscular Hemoglobin 31.0, Mean Corpuscular Hemoglobin Concent 32.4, Mean Corpuscular Volume 96, Mean Platelet Volume 8.8, Metamyelocytes % 0, Monocytes # 0.8, Monocytes # (Auto) , Monocytes % (Manual) 12, Monocytes (%) (Auto) , Neutrophils # 4.3, Neutrophils # (Auto) , Neutrophils (%) (Auto) , Platelet Count 199, Potassium Level 4.1, Red Blood Count 2.94, Red Cell Distribution Width 13.4, Segmented Neutrophils % 61, Sodium Level 141, Total Bilirubin 0.5, Total Protein 5.1, White Blood Count 7.11 IMAGING FINDINGS: There are scattered sclerotic changes in the visualized bony structures, compatible with bony metastatic disease. The heart is mildly enlarged. There is some patchy infiltrate or atelectasis in both lung bases. There is no pneumothorax or pleural fluid. IMPRESSION: Mild cardiomegaly. Patchy infiltrate versus atelectasis in both lung bases which appears at least partially chronic compared to the previous study. There are sclerotic bony changes overlying the rib cage and thoracic spine, compatible with bony metastatic disease. Correlate with the recent CT study of 02/06/2017. ASSESSMENT Pranav Breen is a 86 year old male admitted from ED 02-28-17 for acute respiratory distress attributed to community acquired pneumonia in the setting of stage IV COPD. He has chronic medical problems including metastatic prostate cancer and chronic pain. PLAN * SIRS/Sepsis: Attributed to community acquired pneumonia. Treating underlying problems. Cultures pending. * Acute Respiratory Distress: Attributed to CAP. Duoneb scheduled, albuterol PRN. Oxygen protocol. * Community Acquired Pneumonia: Blood culture pending * COPD/Asthma with Acute Exacerbation: * Temporal Arteritis- awaiting timing of bx per Dr Jacobo- he is aware pt in the hospital * Micobacterial infection on Zithromax * Fever: Acetaminophen. * BLE Edema: Chronic, stable, attributed to chronic lung disease. Compression hose if worsening. * F/E/N: Cardiac diet. Encourage PO fluid intake. Got bolus NS in ED. Peripheral IV. Daily weight, I&O. * Prophylaxis: Enoxaparin * Code Status: DNR * Disposition: Inpatient status for above issues. Anticipate 3-[address] Davidson saw him yesterday. Updated on his current situation. CHRONIC ISSUES * Prostate Cancer, Stage 4, Metastatic: Follows with Dr. Davidson and gets hormonal therapies. * BPH: Tamsulosin * Chronic Pain, OA: [place], fentanyl patch * Lower extremity edema: * Umbilical Hernia: * Neuralgia from Shingles: Observe * Constipation: Bowel regimen * Hemorrhoids: Monitor for bleeding. Bowel regimen. Pt seen and examined. Pt says he has been coughing, but not able to bring anything up. Will order albuterol nebs to help with this. Also waiting for surgery to decide when to do temporal artery bx. Seems to be getting better, will continue abx at this time. Melani Robledo APRN March 01, 2017 08:34 Kevin Hunt MD March 01, 2017 20:24
[2017-03-01] MEDS: HYDROcodone/APAP 7.5 MG/325 MG (NORCO) TABLET PO PRN (08:57)
[2017-03-01] MEDS: TAMSULOSIN 0.4 MG (FLOMAX) CAP PO SCH (08:57)
[2017-03-01] MEDS: CALCIUM CARBONATE 500 MG + VITAMIN D 200 IU TABLET PO SCH ×2 (08:57→20:46)
[2017-03-01] MEDS: AZITHROMYCIN 250 MG TAB (ZITHROMAX) PO SCH (08:57)
[2017-03-01] MEDS: POLYETHYLENE GLYCOL 17 GM (MIRALAX) PACKET PO SCH ×2 (08:58→20:52)
[2017-03-01] MEDS: ENOXAPARIN 40 MG/0.4 ML (LOVENOX) SYR SC SCH (08:58)
[2017-03-01] MEDS: MIDODRINE 5 MG PO SCH ×3 (08:59→19:03)
[2017-03-01] MEDS: NYSTATIN ORAL SUSPENSION 5 ML UDC PO SCH ×2 (08:59→20:46)
[2017-03-01] MEDS: predniSONE 10 MG (DELTASONE) TABLET PO SCH (09:00)
[2017-03-01] MEDS ORDERED: [UNRECOGNIZED DRUG - OTHER] OU SCH (09:00)
[2017-03-01] MEDS ORDERED: BRINZOLAMIDE OU SCH (09:00)
[2017-03-01] MEDS ORDERED: NON-FORMULARY MEDICATION 1 EA EA (Omeprazole 40 MG) PO SCH (09:00)
[2017-03-01] MEDS ORDERED: BRIMONID TART OU SCH (09:00)
[2017-03-01] MEDS ORDERED: ABIRATERONE 250 MG PO SCH (09:00)
[2017-03-01] MEDS ORDERED: ABIRATERONE ACETATE 1000 MG PO SCH ×2 (09:00)
[2017-03-01] MEDS: BRIMONIDINE 0.2% OU SCH (09:09)
[2017-03-01] MEDS: BRINZOLAMIDE 1% OU SCH (09:09)
--- NOTE | 2017-03-01 09:14 | NUR ---
NUTRITION ASSESSMENT Level 1 Patient: Pranav Breen Age/Sex: 86/M Date Screened: 03-01-17 Weight: 209#/95 kg Height: 70 inches Primary Diagnosis: SIRS/sepsis, acute respiratory distress Diet Order: regular Relevant labs: glucose 113, CRP 21.90 Food allergies: N Nutrition Assessment Criteria Age over 80: 4 points Body Mass Index (BMI) under 19: N Admission Screening Indicates Risk? 6 points Moderate/High Risk Diagnosis: 3 points TPN or PPN: N NPO or clear liquid diet: N Serum Glucose <70 or >180: N Hgb A1c >6.7: N/A Total: 13 points Risk Screen: __ Patient at low nutritional risk based on available data; reevaluate in 5-7 days __ Patient at moderate nutritional risk based on available data; reevaluate in 3-5 days _X_ Patient at high nutritional risk; complete Nutrition Assessment within 48 hours of admission.
[2017-03-01] MEDS: LORazepam 0.5 MG (ATIVAN) TABLET PO PRN (09:57)
--- NOTE | 2017-03-01 10:07 | NUR ---
Daughter reports Dr. Lety Waldron. Pharmacy notified. Patient continues to complain of back pain Restless. .Requests Ativan. Ativan given. Warm blanket to lower back given. States blanket helpful. daughter states she uses a heating pad at home for him.
--- NOTE | 2017-03-01 10:46 | NUR ---
NUTRITION ASSESSMENT Level II Patient: Pranav Breen Age/Sex: 86/M Date Assessed: 03-01-17 ASSESSMENT Pertinent History: Patient admitted with SIRS/sepsis and acute respiratory distress and screened at high nutritional risk secondary to weight loss and metastatic prostate cancer. PMHx includes COPD, asthma, skin and prostate cancer, bone cancer, metastatic prostate cancer, constipation, chronic back pain, and glaucoma. He lives alone at home but has family nearby. Pt. denied GI concerns; most recent documented weight was 225# in February 2016. Meds/Nutrition: Prednisone, Protonix, calcium/vitamin D, Miralax, Remeron, NS Weight: 209#/95 kg Height: 70 inches Body Mass Index (BMI): 30.1 [place] Body Weight : 166#/75.4 kg % IBW: 125% GASTROINTESTINAL Appetite: good, eating 75-100% Diet Order: regular Unintentional loss of >10 lbs. in 3 months: N Difficult to chew/swallow: N Diabetes: N Relevant Labs: glucose 113, CRP 21.90 Calculations for Nutritional Assessment Estimated calorie needs: 22-25 kcals/kg = 2,090-2,380 kcals Estimated protein needs: 1.0-1.3 g/kg ABW = 80-104 g./day DIAGNOSIS 1. Nutrition Diagnosis: Potential for inadequate intake related to catabolic disease state (cancer) as evidenced by metastatic prostate cancer with 16# weight loss (7%) in the past year. NUTRITIONAL INTERVENTION Goal: Patient will receive adequate nutrition to meet his needs. Plan: Will provide regular diet as ordered and monitor intake for adequacy. So far his appetite has been good since admission. MONITORING & EVALUATION _X_ Monitor patients menu selections _X_ Monitor patients food intake per nursing notes __ Monitor NPO/clear liquid days __ Monitor lab values __ Monitor I&O __ Other
--- NOTE | 2017-03-01 11:00 | NUR ---
Reports good pain control. sitting up in chair with family in room.
[2017-03-01] MEDS: oxycODONE/ACETAMINOPHEN 10MG-325 MG (PERCOCET-10) TABLET PO PRN ×2 (12:46→19:34)
--- NOTE | 2017-03-01 12:49 | NUR ---
Reports back pain 3:10. Request pain med to keep pain under control.
--- NOTE | 2017-03-01 12:56 | NUR ---
Eating lunch while up in chair. Resp unlabored.
--- NOTE | 2017-03-01 14:10 | NUR ---
PATIENT REQUEST TO EVAL O2 SAT ON RA. O2 SAT 91-92% ON RA. RESP UNLABORED. DAUGHTER AT BEDSIDE. PATIENT REQUEST BREATHING TX. RT NOTIFIED AND ALSO INFORMED OF O2 SAT.
--- NOTE | 2017-03-01 14:28 | NUR ---
RT AT BEDSIDE.
[2017-03-01] MEDS: ALBUTEROL 0.083% NEB SOLUTION 2.5 MG/3 ML VIAL INH SCH ×4 (14:29→23:00)
[2017-03-01] MEDS: fentaNYL PATCH 50 MCG (DURAGESIC) TD SCH (15:03)
--- NOTE | 2017-03-01 15:06 | NUR ---
DR. WHITE AT BEDSIDE.
--- NOTE | 2017-03-01 15:06 | NUR ---
BACK PAIN 1:10. WARM BLANKET GIVEN FOR BACK REQUESTED.
[2017-03-01 15:47] VITALS: BP 112/54
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
--- NOTE | 2017-03-01 18:37 | NUR ---
A/O X 4 AT THIS TIME.
--- NOTE | 2017-03-01 18:39 | NUR ---
APPROX 1715 [facility] NOTIFIED OF NEED FOR MIDODRINE. HAVE NOT RECEIVED. CONTACTED CLINIC CMA FOR MED.
--- NOTE | 2017-03-01 19:34 | NUR ---
Pt sitting in chair. Iv infusing without redness or edema. Pt alert and oriented X3.Pt requests pain medication at this time Percocet given.
--- NOTE | 2017-03-01 19:40 | NUR ---
2.5 Mg Albuterol changed to Q4 while awake due to Pt not being able to sleep when taking it at night. Per Dr Hunt.
--- NOTE | 2017-03-01 19:56 | NUR ---
Pt found sitting in his chair, SPO2 97% on 2 l/min NC, HR 80, RR 18 and non labored at this time. Brovana given via SVN, followed by Pulmicort, both tolerated well. BS clear before and after Tx.
[2017-03-01] MEDS: MIRTAZAPINE 15 MG (REMERON) TABLET PO SCH (20:47)
--- NOTE | 2017-03-01 21:01 | NUR ---
Pt declined Miralax at this time. Reporting he takes it once a day at home.
[2017-03-02] VITALS (8 sets, daily range): BP systolic 108–160; BP diastolic 57–87
[2017-03-02] MEDS: HYDROcodone/APAP 7.5 MG/325 MG (NORCO) TABLET PO PRN ×2 (00:05→17:46)
[2017-03-02] MEDS: ALBUTEROL 0.083% NEB SOLUTION 2.5 MG/3 ML VIAL INH SCH ×4 (03:00→12:59)
[2017-03-02] MEDS: PANTOPRAZOLE 40 MG (PROTONIX) TAB PO SCH (06:05)
[2017-03-02] MEDS: MEROPENEM 1 GM in SODIUM CHLORIDE 100 ML IV SCH ×3 (06:05→21:47)
--- NOTE | 2017-03-02 06:11 | NUR ---
Pt rests throughout the night. NS cont infusing at 75 ml/hr. Intermittent cough noted. Resp even, slightly labored with exertion. Cont on 2L oxygen per nc.
[2017-03-02 06:20] LABS: BASOPHILS % (AUTO) 0 % (0-2); EOSINOPHILS # (AUTO) 0.1 10^3uL; EOSINOPHILS % (AUTO) 1 % (0-4); LYMPHOCYTES # (AUTO) 1.3 X10^3; MEAN CORPUSCULAR HEMOGLOBIN 30.5 PG (26.0-34.0); MEAN CORPUSCULAR HGB CONC 31.8 g/dL (31.0-37.0); MEAN CORPUSCULAR VOLUME 96 FL (80-100); MONOCYTES # (AUTO) 0.8 X10^3; MONOCYTES % (AUTO) 11 % (3-11); NEUTROPHILS # (AUTO) 5.2 X10^3; NEUTROPHILS % (AUTO) 68 % (51-67); PLATELET COUNT 194 10^3uL (150-450); WHITE BLOOD COUNT 7.71 10^3uL (4.0-11.0)
[2017-03-02 06:50] LABS: ANION GAP 8.3 MEQ/L (3-15)
[2017-03-02] MEDS: ARFORMOTEROL NEB SOLUTION (BROVANA) 15 MCG/2 ML VIAL IH SCH ×2 (08:04→17:22)
[2017-03-02] MEDS: BUDESONIDE NEBS 0.25 MG/2 ML (PULMICORT) AMP INH SCH ×2 (08:04→17:22)
--- NOTE | 2017-03-02 08:05 | NUR ---
SpO2 93% on on 2Lpm cannula prior to tx.
--- NOTE | 2017-03-02 08:06 | NUR ---
RT AT BEDSIDE.
[2017-03-02] MEDS ORDERED: HYDROmorphone 1 MG/ML (DILAUDID) SYRINGE IV ONE (09:05)
[2017-03-02] MEDS: BRINZOLAMIDE 1% OU SCH (09:13)
[2017-03-02] MEDS: BRIMONIDINE 0.2% OU SCH (09:13)
--- NOTE | 2017-03-02 09:17 | NUR ---
COMPLAINED OF BACK PAIN 10:10. OBTAINED IV MED ORDER FOR PAIN MED. MED GIVEN AND WARM BLANKET APPLIED TO LOWER BACK FOR COMFORT.
[2017-03-02] MEDS ORDERED: LIDOCAINE PF 1% (XYLOCAINE) 30 ML VIAL INJ ONE (09:46)
[2017-03-02] MEDS ORDERED: LACTATED RINGERS 1,000 ML IV ONE (09:50)
[2017-03-02] MEDS ORDERED: LACTATED RINGERS 1,000 ML IV SCH (09:55)
--- NOTE | 2017-03-02 10:07 | NUR ---
LR AT [facility] IN PREP FOR SURGERY.
--- NOTE | 2017-03-02 10:17 | Progress Note (E) ---
Progress Note S: Awake this am, NPO for temporal artery biopsy, still has a fair amount of his usual pains, Getting IV Dilaudid this am do to NPO for procedure and can't take his pain pills O: I & O Past 24 hrs 03/02/17 07:00 Intake Total 4929 ml Output Total 1000 ml Balance 3929 ml Intake Oral 2168 ml IV Total 2761 ml Output Urine Total 1000 ml # Bowel Movements 1 Vital Signs Date Time Temp Pulse Resp B/P Pulse Ox O2 Delivery O2 Flow Rate FiO2 03/02/17 07:34 98.0 89 20 114/80 95 Nasal cannula 02/28/17 08:18 2 GEN: Awake, alert, oriented, NAD HEENT: EOMI, PERRL, moist oral mucosa. CV: RRR S1 S2 normal with no murmur LUNGS: CTA B DBS bases ABD: Soft, NT/ND with normal bowel sounds. EXTR: No C/C/E. Normal peripheral pulses. INTEG: No rash. NEURO: No focal motor neuro deficit. Weight: 92.4 kg Laboratory Results Past 24 Hrs 02/28/17 10:05: Urine Bacteria None seen, Urine Bilirubin Negative, Urine Blood Negative, Urine Clarity Clear, Urine Collection Type Clean catch, Urine Color Dark yellow, Urine Glucose (UA) Negative, Urine Hyaline Casts 1+, Urine Ketones 2+, Urine Leukocyte Esterase Negative, Urine Microscopic RBC None seen, Urine Mucus 1+, Urine Nitrite Negative, Urine Protein 1+, Urine Specific [place] 1.025, Urine Squamous Epithelial Cells 0-2, Urine Urobilinogen 1.0, Urine WBC None seen, Urine pH 5.5, Volume Urine Centrifuged 12 ml 02/28/17 17:50: Adenovirus (PCR) Negative, Bordetella parapertussis DNA (PCR) Negative, Chlamydophila pneumoniae (PCR) Negative, Coronavirus Type 229E (PCR) Negative, Coronavirus Type HKU1 (PCR) Negative, Coronavirus Type NL63 (PCR) Negative, Coronavirus Type OC43 (PCR) Negative, Enterovirus/Rhinovirus (PCR) Negative, Human Metapneumovirus (PCR) Negative, Influenza Type A (H1) (PCR) Negative, Influenza Virus Type B (PCR) Negative, Mycoplasma pneumoniae (PCR) Negative, Parainfluenza Type 1 (PCR) Negative, Parainfluenza Type 2 (PCR) Negative, Parainfluenza Type 3 (PCR) Negative, Parainfluenza Type 4 (PCR) Negative, Respiratory Syncytial Virus (PCR) Negative 03/01/17 05:30: Absolute Band Neutrophils 0.0, Alanine Aminotransferase (ALT/SGPT) 28, Albumin 2.4, Albumin/Globulin Ratio 0.888, Alkaline Phosphatase 426, Anion Gap 6.7, Aspartate Amino Transf (AST/SGOT) 10, Atypical Lymphocytes 2, BUN/Creatinine Ratio 19, Band Neutrophils % 0, Basophils # (Auto) , Basophils # (Manual) 0.0, Basophils % (Manual) 0, Basophils (%) (Auto) , Blood Morphology Comment Normal, Blood Urea Nitrogen 19, C-Reactive Protein 21.90, Calcium Level 7.4, Calcium/ Ionized Calcium Ratio 3.9, Calculated Osmolality 275, Carbon Dioxide Level 32, Chloride Level 106, Creatinine 0.98, Differential Total Cells Counted 100, Eosinophils # 0.1, Eosinophils # (Auto) , Eosinophils % (Manual) 1, Eosinophils (%) (Auto) , Estimat Glomerular Filtration Rate 88.2, Estimated GFR (Non- 72.9, Glucose Level 113, Hematocrit 28.10, Hemoglobin 9.1, Lymphocytes # 1.7, Lymphocytes # (Auto) , Lymphocytes % (Manual) 24, Lymphocytes (%) (Auto) , Mean Corpuscular Hemoglobin 31.0, Mean Corpuscular Hemoglobin Concent 32.4, Mean Corpuscular Volume 96, Mean Platelet Volume 8.8, Metamyelocytes % 0, Monocytes # 0.8, Monocytes # (Auto) , Monocytes % (Manual) 12, Monocytes (%) (Auto) , Neutrophils # 4.3, Neutrophils # (Auto) , Neutrophils (%) (Auto) , Platelet Count 199, Potassium Level 4.1, Red Blood Count 2.94, Red Cell Distribution Width 13.4, Segmented Neutrophils % 61, Sodium Level 141, Total Bilirubin 0.5, Total Protein 5.1, White Blood Count 7.11 Laboratory Results Past 24 Hrs 03/02/17 05:40: Anion Gap 8.3, BUN/Creatinine Ratio 17, Basophils # (Auto) 0.0, Basophils (%) ( Auto) 0, Blood Urea Nitrogen 14, Calcium Level 7.7, Carbon Dioxide Level 28, Chloride Level 107, Creatinine 0.82, Eosinophils # (Auto) 0.1, Eosinophils (%) ( Auto) 1, Estimat Glomerular Filtration Rate 108.3, Estimated GFR (Non- 89.5, Glucose Level 115, Hematocrit 27.40, Hemoglobin 8.7, Lymphocytes # (Auto) 1.3, Lymphocytes (%) (Auto) 16, Mean Corpuscular Hemoglobin 30.5, Mean Corpuscular Hemoglobin Concent 31.8, Mean Corpuscular Volume 96, Mean Platelet Volume 9.0, Monocytes # (Auto) 0.8, Monocytes (%) (Auto) 11, Neutrophils # (Auto ) 5.2, Neutrophils (%) (Auto) 68, Platelet Count 194, Potassium Level 4.3, Red Blood Count 2.85, Red Cell Distribution Width 13.2, Smear Scan Yes, Sodium Level 139, White Blood Count 7.71 IMAGING FINDINGS: There are scattered sclerotic changes in the visualized bony structures, compatible with bony metastatic disease. The heart is mildly enlarged. There is some patchy infiltrate or atelectasis in both lung bases. There is no pneumothorax or pleural fluid. IMPRESSION: Mild cardiomegaly. Patchy infiltrate versus atelectasis in both lung bases which appears at least partially chronic compared to the previous study. There are sclerotic bony changes overlying the rib cage and thoracic spine, compatible with bony metastatic disease. Correlate with the recent CT study of 02/06/2017. ASSESSMENT Pranav Breen is a 86 year old male admitted from ED 02-28-17 for acute respiratory distress attributed to community acquired pneumonia in the setting of stage IV COPD. He has chronic medical problems including metastatic prostate cancer and chronic pain. PLAN * SIRS/Sepsis: Attributed to community acquired pneumonia. Treating underlying problems. on Meropenum * Acute Respiratory Distress: Attributed to CAP. Duoneb scheduled, albuterol PRN. Oxygen protocol. * Community Acquired Pneumonia: Blood culture negative thus far * COPD/Asthma with Acute Exacerbation: * Temporal Arteritis- awaiting timing of bx per Dr Jacobo- he is aware pt in the hospital * Micobacterial infection on Zithromax * Fever: Acetaminophen. * BLE Edema: Chronic, stable, attributed to chronic lung disease. Compression hose if worsening. * F/E/N: Cardiac diet. Encourage PO fluid intake. Got bolus NS in ED. Peripheral IV. Daily weight, I&O. * Prophylaxis: Enoxaparin * Code Status: DNR * Disposition: Inpatient status for above issues.Having temporal artery biopsy today, continue present management, decrease Miralax due to increased stools, adding PT/OT. CHRONIC ISSUES * Prostate Cancer, Stage 4, Metastatic: Follows with Dr. Davidson and gets hormonal therapies. * BPH: Tamsulosin * Chronic Pain, OA: [place], fentanyl patch * Lower extremity edema: * Umbilical Hernia: * Neuralgia from Shingles: Observe * Constipation: Bowel regimen * Hemorrhoids: Monitor for bleeding. Bowel regimen. Pt seen and examined, agree with above. Daughter concerned that his meds aren't ordered correctly. Miralax will be changed to daily. Prednisone was reported as 20mg daily on admission and that is the dose he has been receiving. Will f/ u on temporal bx results then may need to adjust this dose again. Will touch base with Dr. Yoo. Respiratory status has improved. albuterol is helping him produce more sputum with his cough. Melani Robledo APRN March 02, 2017 10:17 Kevin Hunt MD March 02, 2017 22:39
--- NOTE | 2017-03-02 10:23 | CONSULTATION REPORT ---
ATTENDING PHYSICIAN: Kevin Hunt MD CONSULTING PHYSICIAN: Cassius Jacobo MD REPORT DATE OF REPORT: 03/01/2017 FINDINGS: Visual changes, possible temporal enteritis DIAGNOSIS: 1. Unexplained visual changes. 2. Elevated ESR. RECOMMENDATIONS: I did discuss the case with Dr. Yoo today, who had requested the temporal artery biopsies. He has experienced visual changes in both eyes, which he conveyed to me today. These symptoms somewhat fluctuating in their severity, but due to these changes, along with negative imaging and an elevated sed rate, Dr. Yoo has requested bilateral temporal artery biopsies. The risks and benefits were discussed with the patient and he agreed to proceed. On initial discussion, I had just planned on biopsying the left side, but we will get consent for both sides if he agrees. HISTORY AND PRESENT ILLNESS: The patient is an 86-year-old who was admitted from the emergency room on February 28 with acute respiratory distress and a chest x-ray showing pneumonia. 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 He also has a long history of COPD and is on a low dose of prednisone normally, 10 mg. He has been taking this since he saw Dr. Boyd before his fpc. Before coming into the hospital he had been seen in the clinic by Dr. Yoo for visual changes and was actually scheduled to see me in the clinic today for possible temporal artery biopsy. I am seeing him in the hospital instead. He hasn't had any headache or any unusual body aches or pains, but he has been diagnosed with metastatic prostate cancer and has some bone pain from this. He had been receiving chemotherapy for that and had increased his prednisone to 20 mg due to side effects. However after Dr. Yoo saw him last week, that prednisone was increased to 80 mg a day, which he is currently on. PAST MEDICAL HISTORY: 1. COPD. 2. Asthma. 3. Metastatic prostate cancer to bone. 4. History of tobacco use. 5. Constipation. 6. Chronic back pain. 7. Glaucoma. 8. History of pneumonia. 9. History of iliac vein DVT. 10. BPH. 11. Periumbilical hernia. 12. Herpetic neuralgia. 13. Hemorrhoids. 14. Pancreatic cysts with infection. PAST SURGICAL HISTORY: 1. Colonoscopy. 2. Foot surgery. 3. Hernia repair. 4. Incision of basal cell carcinoma. 5. Endoscopic sinus surgery. 6. Orthopedic surgery to right foot. 7. Cataract repair. 8. Tonsillectomy. 9. Biopsy of pancreatic cyst. ALLERGIES: 1. Penicillin. 2. Dexamethasone. 3. Neomycin. 4. Polymyxin B sulfate. HOME MEDICATIONS: See chart. SOCIAL HISTORY: The patient lives independently here in [place]. His daughter accompanies him at the bedside today. He quit smoking in his 30s. He drinks beer occasionally. He still drives. REVIEW OF SYSTEMS: As above. PHYSICAL EXAM VITAL SIGNS: Temperature is 97.6, heart rate 86, respirations 20, blood pressure 112/54. GENERAL: The patient is alert and oriented in no acute distress. He is sitting in the chair at the bedside. LUNGS: Clear to auscultation bilaterally. HEART: S1, S2 regular rate and rhythm. SKIN: Warm and dry with no jaundice. NEURO: Grossly intact. LABORATORY: His CRP was 22.2 on admission yesterday and 21.9 today.
--- NOTE | 2017-03-02 10:24 | NUR ---
TO OR PER CART ACCOMPANIED BY DAUGHTER ROSIO OR NURSE. LR INFUSING UPON TRANSFER. TRANSFERED WITH O2 AT 2L/NC. A/O X4. SKIN W/P/D. RESP UNLABORED.
[2017-03-02] MEDS ORDERED: MIDAZOLAM 2 MG/2 ML (VERSED) VIAL ONE (11:04)
[2017-03-02] MEDS ORDERED: ALFENTANIL 500 MCG/ML (ALFENTA) 5 ML AMP IV ONE (11:04)
[2017-03-02] MEDS ORDERED: NS FLUSH 10 ML PRN IV (11:10)
[2017-03-02] MEDS ORDERED: NALBUPHINE 10 MG/ML (NUBAIN) 1 ML AMP ONE (12:23)
--- NOTE | 2017-03-02 12:50 | NUR ---
RETURNED FROM OR PER CART ACCOMPANIED BY OR NURSE LÓPEZ. RESP LABORED. COMPLAINS OF BACK PAIN. RT NOTIFIED. SKIN W/P/D. SKIN W/P/D. DRSG DRY AND INTACT. A/O X4.
--- NOTE | 2017-03-02 13:08 | NUR ---
RT AT BEDSIDE. DAUGHTER AT BEDSIDE. REQUESTING PAIN MED FOR BACK. ENCOURAGED SIPS OF WATER TO EVAL ROSALINA.
[2017-03-02] MEDS: oxycODONE/ACETAMINOPHEN 10MG-325 MG (PERCOCET-10) TABLET PO PRN ×2 (13:16→21:46)
--- NOTE | 2017-03-02 13:19 | NUR ---
DENEIS NAUSEA. ROSALINA SIPS WATER. PAIN MED GIVEN.
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
--- NOTE | 2017-03-02 13:20 | NUR ---
OR NURSE LÓPEZ REPORTS LR INFUSION COMPLETE IN OR.
--- NOTE | 2017-03-02 13:25 | NUR ---
WARM BLANKET TO LOWER BACK AND COVERED WITH WARM BLANKET FOR COMFORT.
--- NOTE | 2017-03-02 13:27 | NUR ---
OFFERED CRACKER WITH PAIN MED. PATIENT REFUSED.
--- NOTE | 2017-03-02 13:55 | OPERATIVE REPORT ---
DATE OF OPERATION: 03/02/2017 PRE-OPERATIVE DIAGNOSIS: 1. Visual changes 2. Elevated sedimentation rate. POST-OPERATIVE DIAGNOSIS: 1. Visual changes. 2. Elevated sedimentation rate. OPERATIVE PROCEDURE: Left temporal artery biopsy. SURGEON: Cassius Jacobo MD BOAT JOINER HELPER: Twyla Fritz RN FA ANESTHESIA: Monitored anesthesia care with local INDICATIONS: The patient is an 86-year-old referred for temporal artery biopsy by Dr. Yoo. The patient is currently on the Med/Surg alejandre for treatment of pneumonia, and was referred due to transient loss of vision, along with elevated inflammatory markers. He presents today for bilateral temporal biopsy, which was requested by Dr. Yoo. DESCRIPTION OF PROCEDURE: The patient and his daughter were informed of the risks and benefits and agreed to proceed. He was taken to the operating room and placed supine on a standard operating table, with his head slightly elevated I a semi-recumbent position. His left and right temporal regions were clipped of hair and prepped and draped in standard sterile fashion. His head was turned slightly to the right. The ultrasound was used to localize the audible flow through the temporal artery just anterior and superior to the tragus of the left ear. The skin was marked and 1% lidocaine without epinephrine was injected in the skin over the audible pulse. A #15 blade scalpel was used to make a 2 cm vertical incision through the skin and dissection was carried forth with a combination of bipolar cautery and the Metzenbaum scissors to expose the underlying temporal fascia. This was bluntly opened. The underlying artery was able to be identified after some meticulous dissection and hemostasis. This was encircled proximally at the lower portio of the incision with 4-0 Vicryl tie to luis it. The artery was then followed along its course, which was anterior for about 2 cm. The excision was extended laterally to form a cruciate incision allowing for exposure of the vessel traveling anteriorly. At this time the vessel then abruptly turned superiorly and this was followed within the same incision for some distance. This was dissected free. The exposed length of artery was about 3 cm. The more proximal portion was clamped, clipped and divided between the clamp and the clip. It was tied off and the clip was removed. An additional hemoclip was placed over the tie to help secure the stump. The artery was then gently lifted at that end and dissected free to its more distal aspect within the wound, where this was clamped and divided with the #15 blade scalpel. That divided end of the vessel was tied with 4-0 Vicryl as well. The specimen was measured and without stretching it at all, measured about 28 or 29 mm. Hemostasis was complete within the wound. The skin was closed with subcuticular 4-0 Monocryl and a dressing was applied. During the closure the patient became very anxious, demanding to move his arms and legs and turning his head. He also demanded that his face be uncovered, even though he was still receiving some sedation. Because of this, we decided to forgo the biopsy on the right side. The patient was awoken from anesthesia. He tolerated the procedure without any other complications and went to recovery in stable condition.
--- NOTE | 2017-03-02 13:58 | NUR ---
CALM. RESP UNLABORED. RESTING WITH EYES CLOSED. DAUGHTER AT BEDSIDE.
[2017-03-02] MEDS: AZITHROMYCIN 250 MG TAB (ZITHROMAX) PO SCH (14:16)
[2017-03-02] MEDS: MIDODRINE 5 MG PO SCH ×3 (14:16→18:02)
[2017-03-02] MEDS: CALCIUM CARBONATE 500 MG + VITAMIN D 200 IU TABLET PO SCH ×2 (14:16→20:51)
[2017-03-02] MEDS: TAMSULOSIN 0.4 MG (FLOMAX) CAP PO SCH (14:16)
[2017-03-02] MEDS: predniSONE 10 MG (DELTASONE) TABLET PO SCH (14:16)
[2017-03-02] MEDS: ENOXAPARIN 40 MG/0.4 ML (LOVENOX) SYR SC SCH (14:17)
[2017-03-02] MEDS: NYSTATIN ORAL SUSPENSION 5 ML UDC PO SCH ×2 (14:17→21:00)
--- NOTE | 2017-03-02 14:28 | NUR ---
0900 PROAMATINE NON-ADMIN AND 1300 DOSE GIVEN AT THIS TIME PER PHARMACY REQUEST.
[2017-03-02] MEDS ORDERED: FUROSEMIDE 20 MG/2 ML (LASIX) VIAL IV ONE (14:55)
--- NOTE | 2017-03-02 15:04 | NUR ---
GEORGE VILCHIS INFORMED OF PATIENT'S WEIGHT GAIN. ON ADMIN 02/28 203 LBS 03/02 216 LBS. ALSO INFORM OF I & Q. 2535 ML IV FLUIDS INFUSED TODAY INCLUDING SURGERY FLUIDS. IV FLUIDS DISCONTINUED INSTRUCTED PER GEORGE VILCHIS
--- NOTE | 2017-03-02 18:53 | NUR ---
CONTINUOUS O2 SAT MONITOR DISCONTINUED PER RT APPROVAL. MONITOR HAD BEEN IN PLACE FOR 6 HOURS POST OP. O2 SAT 95% ON 2L/NC. RESP UNLABORED.
--- NOTE | 2017-03-02 19:30 | NUR ---
Pt sitting in chair visiting with family. SL without redness or edema. Dressing on his L Temporal artery with small amount of drainage on it. Pt requests Ativan at this time.
[2017-03-02] MEDS: LORazepam 0.5 MG (ATIVAN) TABLET PO PRN (19:31)
[2017-03-02] MEDS: MIRTAZAPINE 15 MG (REMERON) TABLET PO SCH (20:51)
--- NOTE | 2017-03-02 22:00 | NUR ---
SL flushes without redness or edema. Dressing on left temporal remains intact with a small amount of drainage.
[2017-03-03 00:04] VITALS: BP 121/58
[2017-03-03] MEDS: oxycODONE/ACETAMINOPHEN 10MG-325 MG (PERCOCET-10) TABLET PO PRN ×3 (04:06→16:35)
[2017-03-03] MEDS: MEROPENEM 1 GM in SODIUM CHLORIDE 100 ML IV SCH ×3 (06:21→21:50)
[2017-03-03] MEDS: PANTOPRAZOLE 40 MG (PROTONIX) TAB PO SCH (06:21)
[2017-03-03] MEDS: NS FLUSH 3 ML PRN IV ×2 (06:22→14:25)
[2017-03-03] MEDS: HYDROcodone/APAP 7.5 MG/325 MG (NORCO) TABLET PO PRN ×2 (06:24→21:50)
--- NOTE | 2017-03-03 06:26 | NUR ---
Uneventful shift. Pt rests well. Up to the bathroom occasionally. Extremely short of breath with exertion. Takes pt several minutes to recover. SL intact. Cont on 2L oxygen.
[2017-03-03 07:47] VITALS: BP 107/46
[2017-03-03] MEDS: TAMSULOSIN 0.4 MG (FLOMAX) CAP PO SCH (08:45)
[2017-03-03] MEDS: AZITHROMYCIN 250 MG TAB (ZITHROMAX) PO SCH (08:45)
[2017-03-03] MEDS: MIDODRINE 5 MG PO SCH ×3 (08:45→17:52)
[2017-03-03] MEDS: CALCIUM CARBONATE 500 MG + VITAMIN D 200 IU TABLET PO SCH ×2 (08:45→20:12)
[2017-03-03] MEDS: BRIMONIDINE 0.2% OU SCH (08:46)
[2017-03-03] MEDS: BRINZOLAMIDE 1% OU SCH (08:46)
[2017-03-03] MEDS: predniSONE 10 MG (DELTASONE) TABLET PO SCH (08:50)
[2017-03-03] MEDS: ENOXAPARIN 40 MG/0.4 ML (LOVENOX) SYR SC SCH (08:50)
[2017-03-03] MEDS: POLYETHYLENE GLYCOL 17 GM (MIRALAX) PACKET PO SCH (08:50)
[2017-03-03] MEDS: NYSTATIN ORAL SUSPENSION 5 ML UDC PO SCH ×2 (08:50→20:17)
[2017-03-03] MEDS: NS FLUSH 3 ML DAILY IV SCH (08:50)
[2017-03-03] MEDS: BUDESONIDE NEBS 0.25 MG/2 ML (PULMICORT) AMP INH SCH ×2 (09:03→17:30)
[2017-03-03] MEDS: ARFORMOTEROL NEB SOLUTION (BROVANA) 15 MCG/2 ML VIAL IH SCH ×2 (09:03→17:30)
--- NOTE | 2017-03-03 10:44 | NUR ---
Reports back pain 5:10. Request pain med. Pain med given.
--- NOTE | 2017-03-03 10:45 | Progress Note (E) ---
Progress Note S: Awake breathing better- feeling better, Daughter in the room, Dr Davidson will come visit with family and pt around 1-4pm range Nothing new to report O: I & O Past 24 hrs 03/03/17 07:00 Intake Total 3796 ml Output Total 4900 ml Balance -1104 ml Intake Oral 1261 ml IV Total 2535 ml Output Urine Total 4900 ml # Bowel Movements 3 Vitals: Vital Signs Date Time Temp Pulse Resp B/P Pulse Ox O2 Delivery O2 Flow Rate FiO2 03/03/17 07:47 97.4 81 18 107/46 97 Nasal cannula 2.00 GEN: Awake, alert, oriented, NAD- much better day for him- daughter here HEENT: EOMI, PERRL, moist oral mucosa. CV: RRR S1 S2 normal with no murmur LUNGS: CTA B DBS bases ABD: Soft, NT/ND with normal bowel sounds. EXTR: No C/C/E. Normal peripheral pulses. INTEG: No rash. NEURO: No focal motor neuro deficit. Weight: 92.4 kg Laboratory Results Past 24 Hrs 02/28/17 10:05: Urine Bacteria None seen, Urine Bilirubin Negative, Urine Blood Negative, Urine Clarity Clear, Urine Collection Type Clean catch, Urine Color Dark yellow, Urine Glucose (UA) Negative, Urine Hyaline Casts 1+, Urine Ketones 2+, Urine Leukocyte Esterase Negative, Urine Microscopic RBC None seen, Urine Mucus 1+, Urine Nitrite Negative, Urine Protein 1+, Urine Specific [place]rod 1.025, Urine Squamous Epithelial Cells 0-2, Urine Urobilinogen 1.0, Urine WBC None seen, Urine pH 5.5, Volume Urine Centrifuged 12 ml 02/28/17 17:50: Adenovirus (PCR) Negative, Bordetella parapertussis DNA (PCR) Negative, Chlamydophila pneumoniae (PCR) Negative, Coronavirus Type 229E (PCR) Negative, Coronavirus Type HKU1 (PCR) Negative, Coronavirus Type NL63 (PCR) Negative, Coronavirus Type OC43 (PCR) Negative, Enterovirus/Rhinovirus (PCR) Negative, Human Metapneumovirus (PCR) Negative, Influenza Type A (H1) (PCR) Negative, Influenza Virus Type B (PCR) Negative, Mycoplasma pneumoniae (PCR) Negative, Parainfluenza Type 1 (PCR) Negative, Parainfluenza Type 2 (PCR) Negative, Parainfluenza Type 3 (PCR) Negative, Parainfluenza Type 4 (PCR) Negative, Respiratory Syncytial Virus (PCR) Negative 03/01/17 05:30: Absolute Band Neutrophils 0.0, Alanine Aminotransferase (ALT/SGPT) 28, Albumin 2.4, Albumin/Globulin Ratio 0.888, Alkaline Phosphatase 426, Anion Gap 6.7, Aspartate Amino Transf (AST/SGOT) 10, Atypical Lymphocytes 2, BUN/Creatinine Ratio 19, Band Neutrophils % 0, Basophils # (Auto) , Basophils # (Manual) 0.0, Basophils % (Manual) 0, Basophils (%) (Auto) , Blood Morphology Comment Normal, Blood Urea Nitrogen 19, C-Reactive Protein 21.90, Calcium Level 7.4, Calcium/ Ionized Calcium Ratio 3.9, Calculated Osmolality 275, Carbon Dioxide Level 32, Chloride Level 106, Creatinine 0.98, Differential Total Cells Counted 100, Eosinophils # 0.1, Eosinophils # (Auto) , Eosinophils % (Manual) 1, Eosinophils (%) (Auto) , Estimat Glomerular Filtration Rate 88.2, Estimated GFR (Non- 72.9, Glucose Level 113, Hematocrit 28.10, Hemoglobin 9.1, Lymphocytes # 1.7, Lymphocytes # (Auto) , Lymphocytes % (Manual) 24, Lymphocytes (%) (Auto) , Mean Corpuscular Hemoglobin 31.0, Mean Corpuscular Hemoglobin Concent 32.4, Mean Corpuscular Volume 96, Mean Platelet Volume 8.8, Metamyelocytes % 0, Monocytes # 0.8, Monocytes # (Auto) , Monocytes % (Manual) 12, Monocytes (%) (Auto) , Neutrophils # 4.3, Neutrophils # (Auto) , Neutrophils (%) (Auto) , Platelet Count 199, Potassium Level 4.1, Red Blood Count 2.94, Red Cell Distribution Width 13.4, Segmented Neutrophils % 61, Sodium Level 141, Total Bilirubin 0.5, Total Protein 5.1, White Blood Count 7.11 Laboratory Results Past 24 Hrs 03/02/17 05:40: Anion Gap 8.3, BUN/Creatinine Ratio 17, Basophils # (Auto) 0.0, Basophils (%) ( Auto) 0, Blood Urea Nitrogen 14, Calcium Level 7.7, Carbon Dioxide Level 28, Chloride Level 107, Creatinine 0.82, Eosinophils # (Auto) 0.1, Eosinophils (%) ( Auto) 1, Estimat Glomerular Filtration Rate 108.3, Estimated GFR (Non- 89.5, Glucose Level 115, Hematocrit 27.40, Hemoglobin 8.7, Lymphocytes # (Auto) 1.3, Lymphocytes (%) (Auto) 16, Mean Corpuscular Hemoglobin 30.5, Mean Corpuscular Hemoglobin Concent 31.8, Mean Corpuscular Volume 96, Mean Platelet Volume 9.0, Monocytes # (Auto) 0.8, Monocytes (%) (Auto) 11, Neutrophils # (Auto ) 5.2, Neutrophils (%) (Auto) 68, Platelet Count 194, Potassium Level 4.3, Red Blood Count 2.85, Red Cell Distribution Width 13.2, Smear Scan Yes, Sodium Level 139, White Blood Count 7.71 IMAGING FINDINGS: There are scattered sclerotic changes in the visualized bony structures, compatible with bony metastatic disease. The heart is mildly enlarged. There is some patchy infiltrate or atelectasis in both lung bases. There is no pneumothorax or pleural fluid. IMPRESSION: Mild cardiomegaly. Patchy infiltrate versus atelectasis in both lung bases which appears at least partially chronic compared to the previous study. There are sclerotic bony changes overlying the rib cage and thoracic spine, compatible with bony metastatic disease. Correlate with the recent CT study of 02/06/2017. ASSESSMENT Pranav Breen is a 86 year old male admitted from ED 02-28-17 for acute respiratory distress attributed to community acquired pneumonia in the setting of stage IV COPD. He has chronic medical problems including metastatic prostate cancer and chronic pain. PLAN * SIRS/Sepsis: Attributed to community acquired pneumonia. Treating underlying problems. on Meropenum * Acute Respiratory Distress: Attributed to CAP. Duoneb scheduled, albuterol PRN. Oxygen protocol. 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 * BLE Edema: Chronic, stable, attributed to chronic lung disease. Compression hose if worsening. * F/E/N: Cardiac diet. Encourage PO fluid intake. Got bolus NS in ED. Peripheral IV. Daily weight, I&O. * Prophylaxis: Enoxaparin * Code Status: DNR * Disposition: Inpatient status for above issues. S/P temporal artery bx from 03-02-17, Dr Davidson to visit with pt and family today. Continue present management for pneumonia--Spoke to Dr Davidson today-, resume his cancer med at 1000mg po daily ( pharmacy aware), he will see him in office in a week from Monday ( March 14) will check liver enzymes then. He likely will be here til Monday and then if doing well could be dcd home CHRONIC ISSUES * Prostate Cancer, Stage 4, Metastatic: Follows with Dr. Davidson and gets hormonal therapies. * BPH: Tamsulosin * Chronic Pain, OA: [place], fentanyl patch * Lower extremity edema: * Umbilical Hernia: * Neuralgia from Shingles: Observe * Constipation: Bowel regimen * Hemorrhoids: Monitor for bleeding. Bowel regimen. Pt seen and examined. Conversation with Dr Davidson will likely be to determine what will happen when pt goes home, including if Hospice is a reasonable option. Will move forward depending on what is decided at this meeting. Need to change abx to po so he will be ready to go home soon. Melani Robledo APRN March 03, 2017 10:45 Kevin Hunt MD March 04, 2017 21:52
--- NOTE | 2017-03-03 11:39 | OT Therapy Evaluation (E) ---
POC Plan of Care Problems Identified: Activity Tolerance, ADLs, Balance, Lt UE Strength, Rt UE Strength, Safety Awareness, Vision Impairment Plan: Evaluation-OT, ADL/Self Care Management, Therapy Exercises, Therapy Activities, Pt/Family/Staff Education Frequency of OT: Five times weekly Duration of OT: Other (4 days ) Therapy to Include: ADL training, Balance with ADLs, Pt/family education, Therapeutic activities, UE strengthing Discharge Recommendations: Caregiver support (Pt would benefit from home health services ) Pt would benefit from skilled occupational therapy services to allow for return to prior level of function with increased safety awareness. Additionally to provide education on energy conservation techniques and low vision strategies to improve performance. Pt. Aware of Dx and Prognosis: Yes Goals: Discussed with patient, Discussed with family Short Term Goals STG Time Frame: 2 Days Will Perform Grooming: With Min Assistance Will Dress Upper Extremity: With Setup/SBA Will Dress Lower Extremity: With Min Assistance (and use of a/e as needed.) Will do Bathing: With Min Assistance Will do Toileting: CGA Will Perform Funct Transfer: With Setup/SBA STG #1 Pt will participate in 15 min of ther ex with use of energy conservation techniques as needed. STG #2 Pt will verbalize and demonstrate understanding of low vision strategies to improve performance and safety at home. Aircraft Line Assembler Goals LTG Time Frame: 4 Days Will Dress Upper Extremity: Independently Will Dress Lower Extremity: With Setup/SBA (and use of a/e as needed. ) Will do Tub/Shower Transfer: With Setup/SBA Will Bathe Self: With Setup/SBA Will do Toilet Transfers: Independently Will do Toilieting: Independently LTG # 1 Pt will demonstrate ability to apply deep breathing techniques with independence during self care tasks and exercises to ease shortness of breath and improve performance. Inital Evaluation/General Service Date/Time 03/03/17, 11:38 Primary Diagnosis: (1) Acute respiratory distress ICD Code: J80 Treatment Diagnosis: (1) Weakness ICD Code: R53.1 Onset Date: 03/02/17 Start of Care Date: March 03, 2017 Precaution/Isolation: Standard Precautions Fall Level: Low Risk 25-50 Resuscitation Status: Full Code Reason for Referral: Evaluation and Treat Pertinent Medical History: Other (PMH COPD, Asthma, Chronic Bronchitis, SKin and Prostatic Cancer, Bone Cancer Stage IV, BPH) Pain Level: 2 Pain Locattion/Comments Lower back Oxygen Needed: Nasal cannula O2 liters/minute: 2L Rehabilitation Potential: Good Potential Based On Patient's motivation to get better and return home. Rational for Skilled Treatment: Allow return to home, Assistance with ADLs, Deconditioning, Maximize Safety Living Status Prior to Admit: With Family Prior Level of Function: Independent ADLs Prior to onset, pt reports independence with self care tasks. Pt reports receiving assistance with donning shoes and socks secondary to increased shortness of breath during tasks. Pt lives with daughter and son in law. Patient reports someone is with him at all times. Daughter completes simple IADL of cooking, cleaning, medication management, shopping and community mobility. Pt received home health services once a week from [facility] to check vitasl . Plans Following Discharge: Return Home Support Persons: Adult Child Entry Into Home: [place] with Railing Steps Into Home: 2 Shower and Tub Type: Tub/shower combo-rails Assist Devices: Tub Bench Toilet Type: Raised with grab bars Comment Pt does not use an assistive device for functional mobility. Current Function Assessment Mental Status Patient Orientation: Person, Place, Time, Situation Mental Status: Alert Cognition Attention: Intact Memory: Intact Safety/Judgement: Impaired Visual/Perceptual Skills Glassess: Yes Hearing: Impaired Comment Pt reports difficulty with eye sight since September. Pt able to read clock on wall with increased difficulty. Assessed pt's ocular movement with H testing and pt's demonstrating good control of movement and no evidence of saccades. Required contrast of background for near vision testing. Hand Dominance Hand Dominance: Right ROM/Strength Range of Motion : ROM: WNL Strength Comment RUE 4-/5, LUE 4/5 Skin and Positioning Integumentary: Rt UE edema, Lt UE edema Neurological Coordination: Moderately impaired Endurance Activity Endurance: Becomes SOB, Deep breathing, Poor, Requires freq rest breaks Bed Mobility/Transfers Supine from Sit: Minimum assist Sit to Stand: Minimum assist Chair Transfer: Minimum assist Sitting Balance: WFL ADLs Hand : Feeding Self: Independent Grooming: Grooming Status: Moderate assist Dressing Dressing: Moderate assist Bathing Shower/Bench Transfer Ability: Minimum assist Bathing- Type of Assistance: Moderate Assist Toileting Toilet Hygiene: Minimum Assist Toilet Transfer Ability: CGA CPT/G Codes Time In: 9:19 Time Out: 10:01 Total Minutes: 42 (11/23 eval, 11/15 ADL) CPT Codes: 02579 ADL EA (Provided education to patient and family on low vision strategies including reducing clutters, use of contrast and use of lighting to improve performance. Educated on deep breathing techniques to ease shortness of breath. Following demonstration from therapist, pt able to complete with minimal cueing for technique. Provided strategies to reduce SOB when completing bed mobility. ) MARCO ANTONIO COREA OT March 03, 2017 11:39
[2017-03-03] MEDS: ALBUTEROL 0.083% NEB SOLUTION 2.5 MG/3 ML VIAL INH SCH (12:15)
--- NOTE | 2017-03-03 13:03 | Physical Therapy Evaluation(E) ---
Plan of Care STG Time Frame: 5 Days Pt has 24 hour caregiver support at home and was using no AD prior to admission to hospital. Goal is CGA with no AD with ambulation and transfers in the home. Goals Discussed/Agreed: Yes Plan: Balance, Endurance, Functional Strengthening, Gait & Transfer Training, Strengthening Discharge Recommendations: 24 hour Caregiver support Aware of Dx and Prognosis: Yes Aware of Risk & Benefit: Yes To be Seen: Daily Initial Evaluation Service Date/Time 03/03/17, 12:44 Primary Diagnosis: (1) Acute respiratory distress ICD Code: J80 Treatment Diagnosis: Resuscitation Status: Full Code Precaution/Isolation: Standard Precautions Fall Level: Low Risk 25-50 Initial Assessment Reason for Rehab: Increase Mobility, Increase Strength, Increase Balance, Increase Transfers Medical History: Cancer, COPD Pain Location/Comment Patient not reporting pain at this time. Rehabilitation Potential: Good Rehab Potential Based on Pt prognosis based on PLOF, good support system, and examination findings at this date. Distance Walked in Feet Pt ambulates with CGA, FWW, min-moderate BUE support, reciprocal pattern, upright posture, and decreased gait speed. Needing moderate MC for FWW navigation in hallway as pt is tending to veer to right. Pt reports not using a FWW at home and feeling unsteady with the use of the FWW. Pt ambulated 200' this date. Pt needing one standing rest break during bout of ambulation. AVSS stable throughout. Sp02 93%, HR 103 with 1L02 via NC. ROM/Strength Hip Mobility: Right Hip ROM: WFL Right Hip Strength: 5 Left Hip ROM: WFL Left Hip Strength: 5 Knee Flexion Mobility: Right Knee Flexion: WFL Right Knee Flexion Strength: 5 Left Knee Flexion: WFL Left Knee Flexion Strength: 5 Knee Extension Mobility: Right Knee Extension: WFL Right Knee Extension Strength: 4+ Left Knee Extension: WFL Left Knee Extension Strength: 4+ Ankle Mobility: Right Ankle ROM: WFL Right Ankle Strength: 5 Left Ankle ROM: WFL Left Ankle Strength: 5 Assessment/Goals Initial Transfer Assessment Rolling: Not Assessed/NA Sit-Supine: Not Assessed/NA Sitting Edge of Bed: Not Assessed/NA Supine-Sit: Not Assessed/NA Sit-Stand from Bed: Minimal Assistance Stand-Sit: Minimal Assistance Pivot Transfers: Minimal Assistance Ambulation: Minimal Assistance Distance Walked in Feet Pt amb 200' today. Comment Pt seated in recliner chair upon arrival. Pleasant and agreeable to session. Pt transfers sit>stand from recliner with Hussein of 1 and FWW. Pt needing min VC for technique. Upon completion of session pt transfers stand>sit in recliner chair with CGA. Able to scoot in chair IND. Transfer Short Term Goals Rolling: Modified [place] Sit-Supine: Modified [place] Sitting Edge of Bed: Modified [place] Supine-Sit: Modified [place] Sit-Stand from bed: Contact Guard Assist Stand-Sit: Contact Guard Assist Pivot Transfer: Contact Guard Assist Ambulation: Contact Guard Assist Distance to Walk in Feet 300'. Transfer [facility] Goals Comment roasterman goals not set at this time due to anticipated short length of stay. Treatments Treatments Comment Pt completes the following exercises for strengthening and in preparation for ambulation: LAQ, TR/HR, marching, hip ABD x 20 reps each. Sp02 95% and HR 84 with 1L02 via NC after exercises. Once standing with FWW, pt completes marching x 20 reps with CGA. Sp02 98% and HR 94. Coding Time In: 1128 Time Out: 1207 Total Minutes: 39 Charges: 42585 Eval< 20 min, 48610 Exercise Therp 15 m Rehab G Codes Current Functional Status: [id number] Current Modifier: CJ 20% but <40% Projected Functional Goal: [id number] Goal Modifier: CI 1% but <20% MARYA TIERNEY PT March 03, 2017 13:03
--- NOTE | 2017-03-03 13:29 | NUR ---
left catholic drsg changed. scant dry drainage on old drsg. incision intact and without redness. new drsg of 4x4 and tegaderm applied. denies discomfort at incision site.
--- NOTE | 2017-03-03 13:56 | NUR ---
RESTING IN CHAIR WITH EYES CLOSED. RESP REG AND UNLABORED.
--- NOTE | 2017-03-03 14:10 | NUR ---
Found pt. sleeping in chair on room air, 89%. Started O2 @ 1L nc while sleeping.
[2017-03-03] MEDS: ZYTIGA 250 MG PO SCH (14:24)
[2017-03-03] MEDS ORDERED: PATCH REMOVAL TOP SCH (14:59)
[2017-03-03 15:16] VITALS: BP 108/57
--- NOTE | 2017-03-03 16:43 | OT Daily Note Inpatient (E) ---
OT Daily Treatment Service Date/Time 03/03/17, 16:36 Primary Diagnosis: (1) Acute respiratory distress ICD Code: J80 Treatment Diagnosis: (1) Weakness ICD Code: R53.1 Onset Date: 03/02/17 Start of Care Date: March 03, 2017 Precaution/Isolation: Standard Precautions Fall Level: Low Risk 25-50 Resuscitation Status: Full Code Current Activity: Up in chair (very sleepy and drifted off a few times) I live at my home. My family moved in to take care of me. Pain Level: 0 (no complaint) Oxygen Needed: Nasal cannula O2 liters/minute: 1L Current Function Assessment Mental Status Mental Status: Lethargic Dressing Comment Pt educated in flexible sock aid for donning compression socks and resources for getting one if needed. Pt had TG shapers on and unable to try. Education/Assessment Education Provided: Fall prevention, Home management/safety Education Evalution: Limited understanding Teaching Method: Handout, Practice/repetition, Verbal Readiness to Learn: Good Treatment Tolerance: [place] trmnt w/o complaints Pt was given an home assessment for low vision in the home. Pt states everything was fine.Pt was educated in feeding and eating with contrast colors, making bathrooms safer, adding light bulbs and mulitple other improvements that will help him be safer. Pt was left with numerous handouts for improving home safety and fall prevention for family member to view. POC Plan of Care Problems Identified: Vision Impairment CPT/G Codes Time In: 1553 Time Out: 1628 Total Minutes: 34 CPT Codes: 67313 ADL Genna Maynard March 03, 2017 16:43
--- NOTE | 2017-03-03 16:49 | NUR ---
States lower back pain 2:10. informed has been 6 hours since last pain med. Requests pain med in prep for activity. States wants to take shower before or after supper.
--- NOTE | 2017-03-03 17:11 | NUR ---
UP TO SHOWER. AMB WITH WALKER.
--- NOTE | 2017-03-03 17:53 | NUR ---
States kiera shower well. O2 sat 94% RA after shower.
[2017-03-03] MEDS: MIRTAZAPINE 15 MG (REMERON) TABLET PO SCH (20:12)
--- NOTE | 2017-03-03 21:50 | NUR ---
[place] 7.5 (2) PO given for pain rated "3"; lower back. Pt. watching tv; H2O replenished.
--- NOTE | 2017-03-03 22:35 | NUR ---
IV antibiotic fully infused; IV site leaking with infusion of flush; IV site DC'd with catheter fully intact. Gauze applied to site and secured with coban.
--- NOTE | 2017-03-03 23:00 | NUR ---
New IV site initiated by Teresa/RN at left forearm; 20 gauge. Pt. resting in recliner; watching tv.
[2017-03-04 00:02] VITALS: BP 118/53
[2017-03-04] MEDS: MEROPENEM 1 GM in SODIUM CHLORIDE 100 ML IV SCH (05:45)
[2017-03-04] MEDS: oxycODONE/ACETAMINOPHEN 10MG-325 MG (PERCOCET-10) TABLET PO PRN ×4 (05:45→21:14)
--- NOTE | 2017-03-04 05:45 | NUR ---
Percocet 10 (1) PO given for pain level of "3" in lower back. IV antibiotic currently infusing without difficulty at left lower forearm site. Pt. sitting up at bedside for awhile; lower extremity edema, especially bilateral feet, reflect edema at 1-2+. Call light and H2O within reach.
[2017-03-04 05:54] LABS: MEAN CORPUSCULAR HEMOGLOBIN 30.7 PG (26.0-34.0); MEAN CORPUSCULAR HGB CONC 32.3 g/dL (31.0-37.0); MEAN CORPUSCULAR VOLUME 95 FL (80-100); PLATELET COUNT 264 10^3uL (150-450); WHITE BLOOD COUNT 9.17 10^3uL (4.0-11.0)
[2017-03-04] MEDS: PANTOPRAZOLE 40 MG (PROTONIX) TAB PO SCH (06:08)
[2017-03-04 06:09] LABS: ANION GAP 13.7 MEQ/L (3-15)
[2017-03-04 06:39] LABS: BAND NEUTROPHILS % 6 % (0-6); EOSINOPHILS % 2 % (0-4); LYMPHOCYTES # 2.8 #; MONOCYTES # 0.5 #; MONOCYTES % 6 % (3-11); SEGMENTED NEUTROPHILS % 51 % (51-67); TOTAL CELLS COUNTED 100
[2017-03-04 06:40] LABS: RBC MORPH NORMAL (NORMAL)
[2017-03-04] MEDS: POLYETHYLENE GLYCOL 17 GM (MIRALAX) PACKET PO SCH (08:47)
[2017-03-04] MEDS: CALCIUM CARBONATE 500 MG + VITAMIN D 200 IU TABLET PO SCH ×2 (08:48→21:10)
[2017-03-04] MEDS: HYDROcodone/APAP 7.5 MG/325 MG (NORCO) TABLET PO PRN (08:48)
[2017-03-04] MEDS: TAMSULOSIN 0.4 MG (FLOMAX) CAP PO SCH (08:48)
[2017-03-04] MEDS: predniSONE 10 MG (DELTASONE) TABLET PO SCH (08:48)
[2017-03-04] MEDS: AZITHROMYCIN 250 MG TAB (ZITHROMAX) PO SCH (08:48)
[2017-03-04 08:49] VITALS: BP 132/62
[2017-03-04] MEDS: ZYTIGA 250 MG PO SCH ×3 (08:49→15:00)
[2017-03-04] MEDS: NS FLUSH 3 ML DAILY IV SCH (08:50)
--- NOTE | 2017-03-04 08:50 | NUR ---
[place] 2tabs given for back pain rated 10/10- Takes other AM meds without difficulty.
[2017-03-04] MEDS: NYSTATIN ORAL SUSPENSION 5 ML UDC PO SCH ×3 (08:51→21:00)
[2017-03-04] MEDS: ENOXAPARIN 40 MG/0.4 ML (LOVENOX) SYR SC SCH (08:51)
[2017-03-04] MEDS: MIDODRINE 5 MG PO SCH ×3 (08:51→17:00)
[2017-03-04] MEDS: BRIMONIDINE 0.2% OU SCH (09:45)
--- NOTE | 2017-03-04 09:45 | NUR ---
Percocet PO given for c/o back pain 06/08- Daughter at bedside. Daughter instructs this nurse on chemo medications- called Pharmacy and reported these to Demi Ruiz-
[2017-03-04] MEDS: BRINZOLAMIDE 1% OU SCH (10:31)
[2017-03-04] MEDS: ARFORMOTEROL NEB SOLUTION (BROVANA) 15 MCG/2 ML VIAL IH SCH ×2 (10:49→19:44)
[2017-03-04] MEDS: BUDESONIDE NEBS 0.25 MG/2 ML (PULMICORT) AMP INH SCH ×2 (10:49→19:44)
--- NOTE | 2017-03-04 11:00 | Progress Note (E) ---
Progress Note S: Awake breathing better- feeling better, Reports he is still coughing. Denies CP , F/C. Continues to have pain, but states it is mild in nature. No changes. . RN reports x1 episode of BRBPR. Resolved after BM. Denies pain with defecation. States no improvement in vision. O: Vital Signs Date Time Temp Pulse Resp B/P Pulse Ox O2 Delivery O2 Flow Rate FiO2 03/04/17 08:49 97.4 92 17 132/62 93 Room air 1.00 86 I & O 03/03/17 03/04/17 Cumulative From/Thru 19:00 07:00 02/28/17 08:03 - 03/04/17 06:03 Intake Total 952 ml 250 ml 47788 ml Output Total 300 ml 600 ml 6800 ml Balance 652 ml -350 ml 3683 ml Lab-Past 14 Days, 35 Results 02/28/17 07:38: Alanine Aminotransferase (ALT/SGPT) 24L, Albumin 2.9L, Albumin/Globulin Ratio 1.074L, Alkaline Phosphatase 632H, Anion Gap 14.1, Aspartate Amino Transf (AST/ SGOT) 15, BUN/Creatinine Ratio 20, Basophils # (Auto) 0.0, Basophils (%) (Auto) 0, Blood Urea Nitrogen 21H, C-Reactive Protein 22.20H, Calcium Level 8.1L, Calcium/Ionized Calcium Ratio 4.0, Calculated Osmolality 273L, Carbon Dioxide Level 26, Chloride Level 102, Creatinine 1.03, Eosinophils # (Auto) 0.0, Eosinophils (%) (Auto) 0, Erythrocyte Sedimentation Rate 72H, Estimat Glomerular Filtration Rate 83.2, Estimated GFR (Non- 68.8, Glucose Level 158#H, Hematocrit 32.60L, Hemoglobin 10.7L, Lymphocytes # (Auto) 1.4, Lymphocytes (%) (Auto) 12L, Mean Corpuscular Hemoglobin 30.9, Mean Corpuscular Hemoglobin Concent 32.8, Mean Corpuscular Volume 94, Mean Platelet Volume 9.0, Monocytes # (Auto) 1.6, Monocytes (%) (Auto) 13H, Neutrophils # ( Auto) 9.0, Neutrophils (%) (Auto) 72H, Platelet Count 245, Potassium Level 4.4, Red Blood Count 3.46L, Red Cell Distribution Width 13.4, Sodium Level 138, Total Bilirubin 1.1H, Total Protein 5.6L, White Blood Count 12.35H 02/28/17 10:05: Urine Bacteria None seen, Urine Bilirubin Negative, Urine Blood Negative, Urine Clarity Clear, Urine Collection Type Clean catch, Urine Color Dark yellow, Urine Glucose (UA) Negative, Urine Hyaline Casts 1+, Urine Ketones 2+H, Urine Leukocyte Esterase Negative, Urine Microscopic RBC None seen, Urine Mucus 1+, Urine Nitrite Negative, Urine Protein 1+H, Urine Specific [place] 1.025, Urine Squamous Epithelial Cells 0-2, Urine Urobilinogen 1.0, Urine WBC None seen, Urine pH 5.5, Volume Urine Centrifuged 12 ml 02/28/17 17:50: Adenovirus (PCR) Negative, Bordetella parapertussis DNA (PCR) Negative, Chlamydophila pneumoniae (PCR) Negative, Coronavirus Type 229E (PCR) Negative, Coronavirus Type HKU1 (PCR) Negative, Coronavirus Type NL63 (PCR) Negative, Coronavirus Type OC43 (PCR) Negative, Enterovirus/Rhinovirus (PCR) Negative, Human Metapneumovirus (PCR) Negative, Influenza Type A (H1) (PCR) Negative, Influenza Virus Type B (PCR) Negative, Mycoplasma pneumoniae (PCR) Negative, Parainfluenza Type 1 (PCR) Negative, Parainfluenza Type 2 (PCR) Negative, Parainfluenza Type 3 (PCR) Negative, Parainfluenza Type 4 (PCR) Negative, Respiratory Syncytial Virus (PCR) Negative 03/01/17 05:30: Alanine Aminotransferase (ALT/SGPT) 28L, Albumin 2.4L, Albumin/Globulin Ratio 0.888L, Alkaline Phosphatase 426H, Anion Gap 6.7, Aspartate Amino Transf (AST/ SGOT) 10L, BUN/Creatinine Ratio 19, Basophils # (Auto) , Basophils (%) (Auto) , Blood Urea Nitrogen 19H, C-Reactive Protein 21.90H, Calcium Level 7.4L, Calcium/ Ionized Calcium Ratio 3.9, Calculated Osmolality 275L, Carbon Dioxide Level 32H , Chloride Level 106, Creatinine 0.98, Eosinophils # (Auto) , Eosinophils (%) ( Auto) , Estimat Glomerular Filtration Rate 88.2, Estimated GFR (Non- 72.9, Glucose Level 113#H, Hematocrit 28.10L, Hemoglobin 9.1L, Lymphocytes # (Auto) , Lymphocytes (%) (Auto) , Mean Corpuscular Hemoglobin 31.0 , Mean Corpuscular Hemoglobin Concent 32.4, Mean Corpuscular Volume 96, Mean Platelet Volume 8.8, Monocytes # (Auto) , Monocytes (%) (Auto) , Neutrophils # ( Auto) , Neutrophils (%) (Auto) , Platelet Count 199, Potassium Level 4.1, Red Blood Count 2.94L, Red Cell Distribution Width 13.4, Sodium Level 141, Total Bilirubin 0.5#, Total Protein 5.1L, White Blood Count 7.11, Absolute Band Neutrophils 0.0, Atypical Lymphocytes 2, Band Neutrophils % 0, Basophils # ( Manual) 0.0, Basophils % (Manual) 0, Blood Morphology Comment Normal, Differential Total Cells Counted 100, Eosinophils # 0.1, Eosinophils % (Manual) 1, Lymphocytes # 1.7, Lymphocytes % (Manual) 24, Metamyelocytes % 0, Monocytes # 0.8, Monocytes % (Manual) 12H, Neutrophils # 4.3, Segmented Neutrophils % 61 03/02/17 05:40: Anion Gap 8.3, BUN/Creatinine Ratio 17, Basophils # (Auto) 0.0, Basophils (%) ( Auto) 0, Blood Urea Nitrogen 14, Calcium Level 7.7L, Carbon Dioxide Level 28, Chloride Level 107, Creatinine 0.82, Eosinophils # (Auto) 0.1, Eosinophils (%) ( Auto) 1, Estimat Glomerular Filtration Rate 108.3, Estimated GFR (Non- 89.5, Glucose Level 115H, Hematocrit 27.40L, Hemoglobin 8.7L, Lymphocytes # (Auto) 1.3, Lymphocytes (%) (Auto) 16L, Mean Corpuscular Hemoglobin 30.5, Mean Corpuscular Hemoglobin Concent 31.8, Mean Corpuscular Volume 96, Mean Platelet Volume 9.0, Monocytes # (Auto) 0.8, Monocytes (%) (Auto ) 11, Neutrophils # (Auto) 5.2, Neutrophils (%) (Auto) 68H, Platelet Count 194, Potassium Level 4.3, Red Blood Count 2.85L, Red Cell Distribution Width 13.2, Smear Scan Yes, Sodium Level 139, White Blood Count 7.71 03/04/17 05:05: Anion Gap 13.7, BUN/Creatinine Ratio 17, Basophils # (Auto) , Basophils (%) ( Auto) , Blood Urea Nitrogen 13, Calcium Level 8.8, Carbon Dioxide Level 27, Chloride Level 106, Creatinine 0.78L, Eosinophils # (Auto) , Eosinophils (%) ( Auto) , Estimat Glomerular Filtration Rate 114.7, Estimated GFR (Non- 94.8, Glucose Level 98, Hematocrit 32.20L, Hemoglobin 10.4L, Lymphocytes # (Auto) , Lymphocytes (%) (Auto) , Mean Corpuscular Hemoglobin 30.7 , Mean Corpuscular Hemoglobin Concent 32.3, Mean Corpuscular Volume 95, Mean Platelet Volume 9.0, Monocytes # (Auto) , Monocytes (%) (Auto) , Neutrophils # ( Auto) , Neutrophils (%) (Auto) , Platelet Count 264, Potassium Level 5.2#H, Red Blood Count 3.39L, Red Cell Distribution Width 13.4, Sodium Level 142, White Blood Count 9.17, Absolute Band Neutrophils 0.5, Band Neutrophils % 6, Basophils # (Manual) 0.1, Basophils % (Manual) 1, Blood Morphology Comment Normal, Differential Total Cells Counted 100, Eosinophils # 0.2, Eosinophils % ( Manual) 2, Lymphocytes # 2.8, Lymphocytes % (Manual) 31, Metamyelocytes % 3H, Monocytes # 0.5, Monocytes % (Manual) 6, Neutrophils # 4.7, Segmented Neutrophils % 51 GEN: Awake, alert, oriented, NAD HEENT: EOMI, PERRL, moist oral mucosa.,noted visual deficits grossly, able to see with dark background better, bx site, C/D/I CV: RRR S1 S2 normal with no murmur LUNGS: CTA B DBS bases ABD: Soft, NT/ND with normal bowel sounds. EXTR: No C/C/E. Normal peripheral pulses. INTEG: No rash. NEURO: No focal motor neuro deficit. Weight: 92.4 kg IMAGING FINDINGS: There are scattered sclerotic changes in the visualized bony structures, compatible with bony metastatic disease. The heart is mildly enlarged. There is some patchy infiltrate or atelectasis in both lung bases. There is no pneumothorax or pleural fluid. IMPRESSION: Mild cardiomegaly. Patchy infiltrate versus atelectasis in both lung bases which appears at least partially chronic compared to the previous study. There are sclerotic bony changes overlying the rib cage and thoracic spine, compatible with bony metastatic disease. Correlate with the recent CT study of 02/06/2017. ASSESSMENT Pranav Breen is a 86 year old male admitted from ED 02-28-17 for acute respiratory distress attributed to community acquired pneumonia in the setting of stage IV COPD. He has chronic medical problems including metastatic prostate cancer and chronic pain. PLAN * SIRS/Sepsis: Attributed to community acquired pneumonia. Improved criteria * Acute Respiratory Distress: Attributed to CAP. Duoneb scheduled, albuterol PRN. Oxygen protocol, resolved * Community Acquired Pneumonia: Blood culture negative thus far. 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 Compression hose if worsening. * F/E/N: Cardiac diet. Encourage PO fluid intake. Got bolus NS in ED. Peripheral IV. Daily weight, I&O. * Prophylaxis: Enoxaparin * Code Status: DNR * Disposition: Inpatient status for above issues. S/P temporal artery bx from 03-02-17. Resumed his cancer med at 1000mg po daily( pharmacy aware). Dr Davidson to see him in office in a week from Monday ( March 14) will check liver enzymes then. He likely will be here until Monday and then if doing well could be dcd home CHRONIC ISSUES * Prostate Cancer, Stage 4, Metastatic: Follows with Dr. Davidson and gets hormonal therapies. * BPH: Tamsulosin * Chronic Pain, OA: [place], fentanyl patch * Lower extremity edema: * Umbilical Hernia: * Neuralgia from Shingles: Observe * Constipation: Bowel regimen * Hemorrhoids: Monitor for bleeding, x1 episode of bleeding today, hgb stable, continue bowel regimen. JORJE GALVIN DO March 04, 2017 10:50
[2017-03-04] MEDS ORDERED: ASPIRIN 81 MG CHEW (LOW-DOSE) PO ONE (11:05)
--- NOTE | 2017-03-04 11:07 | NUR ---
Dressing to left adventism changed at this time- no drainage to dressing, no swelling or redness. Incision is well approximated.
[2017-03-04] MEDS: CEFDINIR 300 MG (OMNICEF) CAPSULE PO SCH (11:20)
[2017-03-04] MEDS: fentaNYL PATCH 50 MCG (DURAGESIC) TD SCH (14:59)
[2017-03-04] MEDS ORDERED: PATCH REMOVAL TOP SCH (14:59)
--- NOTE | 2017-03-04 15:00 | NUR ---
Fentanyl patch removed from Right mid-back and disposed of per protocol. Fentanyl 50mcg patch placed to Left mid-back at patient request. Home med given as prescribed and discussed with daughter this AM.
[2017-03-04] MEDS ORDERED: ALBUTEROL 0.083% NEB SOLUTION 2.5 MG/3 ML VIAL INH PRN (15:50)
[2017-03-04 18:34] VITALS: BP 129/63
[2017-03-04] MEDS: oxyCODONE IMMEDIATE RELEASE 5 MG (OXYIR) TAB PO PRN (19:55)
--- NOTE | 2017-03-04 19:55 | NUR ---
Oxy IR 10mg administered by Margot COOPER for generalized pain and discomfort.
[2017-03-04] MEDS: MIRTAZAPINE 15 MG (REMERON) TABLET PO SCH (21:10)
--- NOTE | 2017-03-04 21:14 | NUR ---
Percocet 10mg administered by Margot COOPER for discomfort.
[2017-03-05] VITALS: BP 119/56
[2017-03-05] MEDS: oxyCODONE IMMEDIATE RELEASE 5 MG (OXYIR) TAB PO PRN (05:25)
--- NOTE | 2017-03-05 05:25 | NUR ---
Oxy IR 10mg administered for generalized pain and discomfort. Also patient asked for Chemo meds at 0526 which were given to him. Rested well tonight. Uses call light to make needs known.
[2017-03-05] MEDS: ZYTIGA 250 MG PO SCH (05:36)
[2017-03-05 06:09] LABS: MEAN CORPUSCULAR HEMOGLOBIN 29.9 PG (26.0-34.0); MEAN CORPUSCULAR VOLUME 95 FL (80-100); MEAN PLATELET VOLUME 9.1 FL (6.0-9.5); PLATELET COUNT 239 10^3uL (150-450); WHITE BLOOD COUNT 7.54 10^3uL (4.0-11.0)
[2017-03-05] MEDS: PANTOPRAZOLE 40 MG (PROTONIX) TAB PO SCH (06:17)
[2017-03-05 06:25] LABS: MEAN CORPUSCULAR HGB CONC 31.6 g/dL (31.0-37.0)
--- NOTE | 2017-03-05 06:30 | NUR ---
Patient rested well tonight. Does become SOA with minimal exertion to the bathroom. Dressing dry and intact to left temporal area. Refuses Oxygen tonight. Sats in the low 90's. Cooperative with cares.
[2017-03-05 06:42] LABS: BAND NEUTROPHILS % 4 % (0-6); EOSINOPHILS % 3 % (0-4); LYMPHOCYTES # 1.6 #; MONOCYTES # 0.5 #; MONOCYTES % 7 % (3-11); RBC MORPH NORMAL (NORMAL); SEGMENTED NEUTROPHILS % 61 % (51-67); TOTAL CELLS COUNTED 100
[2017-03-05] MEDS: POLYETHYLENE GLYCOL 17 GM (MIRALAX) PACKET PO SCH (08:33)
[2017-03-05] MEDS: MIDODRINE 5 MG PO SCH ×3 (08:34→17:16)
[2017-03-05] MEDS: AZITHROMYCIN 250 MG TAB (ZITHROMAX) PO SCH (08:34)
[2017-03-05] MEDS: ENOXAPARIN 40 MG/0.4 ML (LOVENOX) SYR SC SCH (08:34)
[2017-03-05] MEDS: CEFDINIR 300 MG (OMNICEF) CAPSULE PO SCH (08:34)
[2017-03-05] MEDS: oxycODONE/ACETAMINOPHEN 10MG-325 MG (PERCOCET-10) TABLET PO PRN ×4 (08:35→21:46)
[2017-03-05] MEDS: CALCIUM CARBONATE 500 MG + VITAMIN D 200 IU TABLET PO SCH ×2 (08:35→20:48)
[2017-03-05] MEDS: TAMSULOSIN 0.4 MG (FLOMAX) CAP PO SCH (08:35)
[2017-03-05] MEDS: predniSONE 20 MG (DELTASONE) TABLET PO SCH (08:35)
[2017-03-05] MEDS: BRIMONIDINE 0.2% OU SCH (08:38)
[2017-03-05] MEDS: BRINZOLAMIDE 1% OU SCH (08:38)
[2017-03-05] MEDS: NS FLUSH 3 ML DAILY IV SCH (08:39)
[2017-03-05] MEDS: NYSTATIN ORAL SUSPENSION 5 ML UDC PO SCH ×2 (08:39→20:48)
[2017-03-05] MEDS: ARFORMOTEROL NEB SOLUTION (BROVANA) 15 MCG/2 ML VIAL IH SCH ×2 (08:56→19:21)
[2017-03-05] MEDS: BUDESONIDE NEBS 0.25 MG/2 ML (PULMICORT) AMP INH SCH ×2 (08:56→19:21)
[2017-03-05 10:00] VITALS: BP 114/57
[2017-03-05 16:30] VITALS: BP 144/64
--- NOTE | 2017-03-05 17:17 | Progress Note (E) ---
Progress Note S: Pt not sure how he is doing today. He c/o having to get up to urinate x3 last night and this is unusual. He says he's on a med to relax his bladder and thinks it's now too relaxed. Family not here to discuss the plan, but pt says their meeting on 03/[address] Davidson resulted in him continuing his chemo. Abx have been changed to po cefdinir and respiratory status hasn't changed. No other c/o. GEN: Awake, alert, oriented, NAD CV: RRR S1 S2 normal with no murmur LUNGS: CTA B, diminished BS both bases ABD: Soft, NT/ND with normal bowel sounds. NEURO: No focal motor neuro deficit. LABORATORY: CBC Last 24 Hrs 03/05/17 05:10 IMAGING FINDINGS: There are scattered sclerotic changes in the visualized bony structures, compatible with bony metastatic disease. The heart is mildly enlarged. There is some patchy infiltrate or atelectasis in both lung bases. There is no pneumothorax or pleural fluid. IMPRESSION: Mild cardiomegaly. Patchy infiltrate versus atelectasis in both lung bases which appears at least partially chronic compared to the previous study. There are sclerotic bony changes overlying the rib cage and thoracic spine, compatible with bony metastatic disease. Correlate with the recent CT study of 02/06/2017. ASSESSMENT Pranav Breen is a 86 year old male admitted from ED 02-28-17 for acute respiratory distress attributed to community acquired pneumonia in the setting of stage IV COPD. He has chronic medical problems including metastatic prostate cancer and chronic pain. PLAN * SIRS/Sepsis: Attributed to community acquired pneumonia. Improved and now on po abx. * Acute Respiratory Distress: Attributed to CAP. Duoneb scheduled, albuterol PRN. Oxygen protocol, resolved * Community Acquired Pneumonia: Blood culture negative thus far. 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 He needs to f/u with ID to maybe get back on ethambutol. * Fever: Acetaminophen PRN * BLE Edema: Chronic, stable, attributed to chronic lung disease. Compression hose if worsening. * F/E/N: Cardiac diet. Encourage PO fluid intake. Got bolus NS in ED. Peripheral IV. Daily weight, I&O. * Prophylaxis: Enoxaparin * Code Status: DNR * Disposition: Inpatient status for above issues. S/P temporal artery bx from 03-02-17. Resumed his cancer med at 1000mg po daily( pharmacy aware). Dr Davidson to see him in office in a week from Monday (March 14) will check liver enzymes then. He likely will be here until Monday and then if doing well could be dc'd home CHRONIC ISSUES * Prostate Cancer, Stage 4, Metastatic: Follows with Dr. Davidson and gets hormonal therapies. * BPH: Tamsulosin * Chronic Pain, OA: [place], fentanyl patch * Lower extremity edema: * Umbilical Hernia: * Neuralgia from Shingles: Observe * Constipation: Bowel regimen * Hemorrhoids: Monitor for bleeding, x1 episode of bleeding today, hgb stable, continue bowel regimen. Kevin Hunt MD March 05, 2017 17:17
--- NOTE | 2017-03-05 17:44 | NUR ---
Pt given Percocet every hours today at patient and daughters request to "stay on top of pain"- last dose given at 1715. Rates chronic back pain 7/10 when Percocet is wearing off. Pt sits in chair during the day and ambulates to toilet with SBA- sometimes patient does not call for assist even when encouraged to. IV SL intact to LFA- no redness/swelling. At this time Dr. Hunt is talking to daughter Genna on the phone at daughters request regarding plan of care, medications, home health and discharge plan in the next few days.
[2017-03-05] MEDS ORDERED: fentaNYL PATCH 75 MCG (DURAGESIC) TD SCH (18:10)
--- NOTE | 2017-03-05 18:18 | NUR ---
Fentanyl 50mcg patch removed from Left lower back Fentanyl 75mcg patch placed to left lower back at his request.
--- NOTE | 2017-03-05 19:21 | NUR ---
Pt up in chair watching TV. Breathing easily on RA. Denies needs at this time.
[2017-03-05] MEDS: MIRTAZAPINE 15 MG (REMERON) TABLET PO SCH (20:48)
[2017-03-05 23:57] VITALS: BP 133/66
[2017-03-06] MEDS: oxycODONE/ACETAMINOPHEN 10MG-325 MG (PERCOCET-10) TABLET PO PRN ×4 (03:18→16:15)
[2017-03-06] MEDS: PANTOPRAZOLE 40 MG (PROTONIX) TAB PO SCH (05:45)
[2017-03-06] MEDS: ZYTIGA 250 MG PO SCH (05:45)
--- NOTE | 2017-03-06 05:59 | NUR ---
Pt rests intermittently throughout the night. Short of air with exertion; recovers after 5-7 minutes. SL intact. PRN percocet provided to pt throughout the night for back pain. No needs at this time.
[2017-03-06 06:32] LABS: MEAN CORPUSCULAR HEMOGLOBIN 30.6 PG (26.0-34.0); MEAN CORPUSCULAR HGB CONC 32.4 g/dL (31.0-37.0); MEAN CORPUSCULAR VOLUME 94 FL (80-100); MEAN PLATELET VOLUME 9.1 FL (6.0-9.5); PLATELET COUNT 275 10^3uL (150-450); WHITE BLOOD COUNT 9.02 10^3uL (4.0-11.0)
[2017-03-06 06:43] LABS: ALBUMIN 2.7 g/dL (3.4-5.0); ANION GAP 9.5 MEQ/L (3-15); CALCULATED IONIZED CALCIUM 4.3 mg/dL (3.8-4.6); TOTAL PROTEIN 5.5 g/dL (6.4-8.5)
[2017-03-06 06:55] LABS: BAND NEUTROPHILS % 9 % (0-6); EOSINOPHILS % 1 % (0-4); LYMPHOCYTES # 2.1 #; MONOCYTES # 0.9 #; MONOCYTES % 10 % (3-11); RBC MORPH NORMAL (NORMAL); SEGMENTED NEUTROPHILS % 55 % (51-67); TOTAL CELLS COUNTED 100
[2017-03-06 07:31] VITALS: BP 123/47
[2017-03-06] MEDS: predniSONE 20 MG (DELTASONE) TABLET PO SCH (08:00)
[2017-03-06] MEDS: BRINZOLAMIDE 1% OU SCH (08:01)
[2017-03-06] MEDS: CEFDINIR 300 MG (OMNICEF) CAPSULE PO SCH (08:01)
[2017-03-06] MEDS: BRIMONIDINE 0.2% OU SCH (08:01)
[2017-03-06] MEDS: MIDODRINE 5 MG PO SCH ×2 (08:02→12:04)
[2017-03-06] MEDS: AZITHROMYCIN 250 MG TAB (ZITHROMAX) PO SCH (08:02)
[2017-03-06] MEDS: CALCIUM CARBONATE 500 MG + VITAMIN D 200 IU TABLET PO SCH (08:02)
[2017-03-06] MEDS: NS FLUSH 3 ML DAILY IV SCH (08:02)
[2017-03-06] MEDS: TAMSULOSIN 0.4 MG (FLOMAX) CAP PO SCH (08:02)
[2017-03-06] MEDS: POLYETHYLENE GLYCOL 17 GM (MIRALAX) PACKET PO SCH (08:03)
[2017-03-06] MEDS: ENOXAPARIN 40 MG/0.4 ML (LOVENOX) SYR SC SCH (08:08)
[2017-03-06] MEDS: NYSTATIN ORAL SUSPENSION 5 ML UDC PO SCH (08:19)
[2017-03-06] MEDS: ARFORMOTEROL NEB SOLUTION (BROVANA) 15 MCG/2 ML VIAL IH SCH (08:30)
[2017-03-06] MEDS: BUDESONIDE NEBS 0.25 MG/2 ML (PULMICORT) AMP INH SCH (08:31)
--- NOTE | 2017-03-06 08:34 | NUR ---
SpO2 95-96% on Room Air, BS clear.
--- NOTE | 2017-03-06 10:00 | NUR ---
The patient is up and independent in his room this AM. He is SOA on exertion. He is able to tend to his needs and prepares for morning interventions and meal. He has right lower back pain that is controlled with [place] PO Q4HR PRN. He is up with Aides for morning hygiene after RT. He is able to make needs known and cooperates well with staff. VSS and WNL.
--- NOTE | 2017-03-06 10:09 | NUR ---
Nutrition Follow Up: Patient is eating 75-100% of regular diet. Noted possible plans to go home today, if doing well. He still gets SOA with minimal exertion, and will need to have assistance with meal prep at home. Weight today: 211.6#/96.2 kg--this is up 2.6# since last week Labs: glucose 94 1. No changes recommended at this time; will continue to monitor intake for adequacy.
--- NOTE | 2017-03-06 10:20 | NUR ---
Dressing to left pentecostal changed at this time- no drainage to dressing, no swelling or redness. Incision is well approximated.
--- NOTE | 2017-03-06 10:59 | NUR ---
RAYMOND Luevano notifies this RN that Pranav has a moderate amount of bright red blood on depends and towel after shower. Discussed issues with Pranav and he confirmed previous hemorrhoids. Will continue to monitor
--- NOTE | 2017-03-06 13:01 | Progress Note (E) ---
Progress Note SUBJECTIVE No major issues overnight. He reported to nurse aid he hopes to go home today. This AM after shower, he had some bright red blood on his undergarment and he reported having hemorrhoids. Dressing to left lutheran changed today... no discharge/drainage. SpO2 95-96% RA but still subjectively dyspneic with activity. Remains afebrile. Hgb stable at 9.9. Chemistry stable. CRP was 22.20 02/28. Blood culture remains negative. Pathology report pending but due back today. Lab is working on procuring report. On exam, awake, interactive, oriented. Discussed findings, plan of care. Offered skilled care but he'd rather go home. Not dyspneic at rest and he feels dyspnea with activity is per his baseline. Vision has not improved since acute change earlier this year. Not improved after starting prednisone. Had no prior jaw claudication, no temporal pain or GOODMAN. OBJECTIVE Vital Signs Date Time Temp Pulse Resp B/P Pulse Ox O2 Delivery O2 Flow Rate FiO2 03/06/17 07:31 98.1 81 20 123/47 92 Room air 0.00 I & O 03/05/17 03/06/17 Cumulative From/Thru 19:00 07:00 02/28/17 08:03 - 03/06/17 06:04 Intake Total 1161 ml 1289 ml 33295 ml Output Total 1000 ml 1700 ml 56395 ml Balance 161 ml -411 ml 2717 ml GEN: Awake, interactive, oriented. NAD at present. HEENT: EOMI, clear sclerae, mildly dry oral mucosa. Dressing to left lutheran C/D/ I. CV: Regular without significant murmur. PULM: Diminished throughout, no R/R/W. ABD: Soft, NT/ND with normal bowel sounds. EXTR: 2+ BLE edema. INTEG: Age related changes. Healing biopsy site, left lutheran. NEURO: No focal motor neuro deficit. 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 Lab-Past 14 Days, 35 Results 02/28/17 07:38: Alanine Aminotransferase (ALT/SGPT) 24L, Albumin 2.9L, Albumin/Globulin Ratio 1.074L, Alkaline Phosphatase 632H, Anion Gap 14.1, Aspartate Amino Transf (AST/ SGOT) 15, BUN/Creatinine Ratio 20, Basophils # (Auto) 0.0, Basophils (%) (Auto) 0, Blood Urea Nitrogen 21H, C-Reactive Protein 22.20H, Calcium Level 8.1L, Calcium/Ionized Calcium Ratio 4.0, Calculated Osmolality 273L, Carbon Dioxide Level 26, Chloride Level 102, Creatinine 1.03, Eosinophils # (Auto) 0.0, Eosinophils (%) (Auto) 0, Erythrocyte Sedimentation Rate 72H, Estimat Glomerular Filtration Rate 83.2, Estimated GFR (Non- 68.8, Glucose Level 158#H, Hematocrit 32.60L, Hemoglobin 10.7L, Lymphocytes # (Auto) 1.4, Lymphocytes (%) (Auto) 12L, Mean Corpuscular Hemoglobin 30.9, Mean Corpuscular Hemoglobin Concent 32.8, Mean Corpuscular Volume 94, Mean Platelet Volume 9.0, Monocytes # (Auto) 1.6, Monocytes (%) (Auto) 13H, Neutrophils # ( Auto) 9.0, Neutrophils (%) (Auto) 72H, Platelet Count 245, Potassium Level 4.4, Red Blood Count 3.46L, Red Cell Distribution Width 13.4, Sodium Level 138, Total Bilirubin 1.1H, Total Protein 5.6L, White Blood Count 12.35H 02/28/17 10:05: Urine Bacteria None seen, Urine Bilirubin Negative, Urine Blood Negative, Urine Clarity Clear, Urine Collection Type Clean catch, Urine Color Dark yellow, Urine Glucose (UA) Negative, Urine Hyaline Casts 1+, Urine Ketones 2+H, Urine Leukocyte Esterase Negative, Urine Microscopic RBC None seen, Urine Mucus 1+, Urine Nitrite Negative, Urine Protein 1+H, Urine Specific [place] 1.025, Urine Squamous Epithelial Cells 0-2, Urine Urobilinogen 1.0, Urine WBC None seen, Urine pH 5.5, Volume Urine Centrifuged 12 ml 02/28/17 17:50: Adenovirus (PCR) Negative, Bordetella parapertussis DNA (PCR) Negative, Chlamydophila pneumoniae (PCR) Negative, Coronavirus Type 229E (PCR) Negative, Coronavirus Type HKU1 (PCR) Negative, Coronavirus Type NL63 (PCR) Negative, Coronavirus Type OC43 (PCR) Negative, Enterovirus/Rhinovirus (PCR) Negative, Human Metapneumovirus (PCR) Negative, Influenza Type A (H1) (PCR) Negative, Influenza Virus Type B (PCR) Negative, Mycoplasma pneumoniae (PCR) Negative, Parainfluenza Type 1 (PCR) Negative, Parainfluenza Type 2 (PCR) Negative, Parainfluenza Type 3 (PCR) Negative, Parainfluenza Type 4 (PCR) Negative, Respiratory Syncytial Virus (PCR) Negative 03/01/17 05:30: Alanine Aminotransferase (ALT/SGPT) 28L, Albumin 2.4L, Albumin/Globulin Ratio 0.888L, Alkaline Phosphatase 426H, Anion Gap 6.7, Aspartate Amino Transf (AST/ SGOT) 10L, BUN/Creatinine Ratio 19, Basophils # (Auto) , Basophils (%) (Auto) , Blood Urea Nitrogen 19H, C-Reactive Protein 21.90H, Calcium Level 7.4L, Calcium/ Ionized Calcium Ratio 3.9, Calculated Osmolality 275L, Carbon Dioxide Level 32H , Chloride Level 106, Creatinine 0.98, Eosinophils # (Auto) , Eosinophils (%) ( Auto) , Estimat Glomerular Filtration Rate 88.2, Estimated GFR (Non- 72.9, Glucose Level 113#H, Hematocrit 28.10L, Hemoglobin 9.1L, Lymphocytes # (Auto) , Lymphocytes (%) (Auto) , Mean Corpuscular Hemoglobin 31.0 , Mean Corpuscular Hemoglobin Concent 32.4, Mean Corpuscular Volume 96, Mean Platelet Volume 8.8, Monocytes # (Auto) , Monocytes (%) (Auto) , Neutrophils # ( Auto) , Neutrophils (%) (Auto) , Platelet Count 199, Potassium Level 4.1, Red Blood Count 2.94L, Red Cell Distribution Width 13.4, Sodium Level 141, Total Bilirubin 0.5#, Total Protein 5.1L, White Blood Count 7.11, Absolute Band Neutrophils 0.0, Atypical Lymphocytes 2, Band Neutrophils % 0, Basophils # ( Manual) 0.0, Basophils % (Manual) 0, Blood Morphology Comment Normal, Differential Total Cells Counted 100, Eosinophils # 0.1, Eosinophils % (Manual) 1, Lymphocytes # 1.7, Lymphocytes % (Manual) 24, Metamyelocytes % 0, Monocytes # 0.8, Monocytes % (Manual) 12H, Neutrophils # 4.3, Segmented Neutrophils % 61 03/02/17 05:40: Anion Gap 8.3, BUN/Creatinine Ratio 17, Basophils # (Auto) 0.0, Basophils (%) ( Auto) 0, Blood Urea Nitrogen 14, Calcium Level 7.7L, Carbon Dioxide Level 28, Chloride Level 107, Creatinine 0.82, Eosinophils # (Auto) 0.1, Eosinophils (%) ( Auto) 1, Estimat Glomerular Filtration Rate 108.3, Estimated GFR (Non- 89.5, Glucose Level 115H, Hematocrit 27.40L, Hemoglobin 8.7L, Lymphocytes # (Auto) 1.3, Lymphocytes (%) (Auto) 16L, Mean Corpuscular Hemoglobin 30.5, Mean Corpuscular Hemoglobin Concent 31.8, Mean Corpuscular Volume 96, Mean Platelet Volume 9.0, Monocytes # (Auto) 0.8, Monocytes (%) (Auto ) 11, Neutrophils # (Auto) 5.2, Neutrophils (%) (Auto) 68H, Platelet Count 194, Potassium Level 4.3, Red Blood Count 2.85L, Red Cell Distribution Width 13.2, Smear Scan Yes, Sodium Level 139, White Blood Count 7.71 03/04/17 05:05: Anion Gap 13.7, BUN/Creatinine Ratio 17, Basophils # (Auto) , Basophils (%) ( Auto) , Blood Urea Nitrogen 13, Calcium Level 8.8, Carbon Dioxide Level 27, Chloride Level 106, Creatinine 0.78L, Eosinophils # (Auto) , Eosinophils (%) ( Auto) , Estimat Glomerular Filtration Rate 114.7, Estimated GFR (Non- 94.8, Glucose Level 98, Hematocrit 32.20L, Hemoglobin 10.4L, Lymphocytes # (Auto) , Lymphocytes (%) (Auto) , Mean Corpuscular Hemoglobin 30.7 , Mean Corpuscular Hemoglobin Concent 32.3, Mean Corpuscular Volume 95, Mean Platelet Volume 9.0, Monocytes # (Auto) , Monocytes (%) (Auto) , Neutrophils # ( Auto) , Neutrophils (%) (Auto) , Platelet Count 264, Potassium Level 5.2#H, Red Blood Count 3.39L, Red Cell Distribution Width 13.4, Sodium Level 142, White Blood Count 9.17, Absolute Band Neutrophils 0.5, Band Neutrophils % 6, Basophils # (Manual) 0.1, Basophils % (Manual) 1, Blood Morphology Comment Normal, Differential Total Cells Counted 100, Eosinophils # 0.2, Eosinophils % ( Manual) 2, Lymphocytes # 2.8, Lymphocytes % (Manual) 31, Metamyelocytes % 3H, Monocytes # 0.5, Monocytes % (Manual) 6, Neutrophils # 4.7, Segmented Neutrophils % 51 03/05/17 05:10: Basophils # (Auto) , Basophils (%) (Auto) , Eosinophils # (Auto) , Eosinophils ( %) (Auto) , Hematocrit 29.10L, Hemoglobin 9.2L, Lymphocytes # (Auto) , Lymphocytes (%) (Auto) , Mean Corpuscular Hemoglobin 29.9, Mean Corpuscular Hemoglobin Concent 31.6, Mean Corpuscular Volume 95, Mean Platelet Volume 9.1, Monocytes # (Auto) , Monocytes (%) (Auto) , Neutrophils # (Auto) , Neutrophils ( %) (Auto) , Platelet Count 239, Red Blood Count 3.08L, Red Cell Distribution Width 13.5, White Blood Count 7.54, Absolute Band Neutrophils 0.3, Band Neutrophils % 4, Basophils # (Manual) 0.0, Basophils % (Manual) 0, Blood Morphology Comment Normal, Differential Total Cells Counted 100, Eosinophils # 0.2, Eosinophils % (Manual) 3, Lymphocytes # 1.6, Lymphocytes % (Manual) 21, Metamyelocytes % 4H, Monocytes # 0.5, Monocytes % (Manual) 7, Neutrophils # 4.6 , Segmented Neutrophils % 61 03/06/17 06:25: Anion Gap 9.5, BUN/Creatinine Ratio 17, Basophils # (Auto) , Basophils (%) (Auto ) , Blood Urea Nitrogen 15, Calcium Level 8.6L, Carbon Dioxide Level 31H, Chloride Level 104, Creatinine 0.88, Eosinophils # (Auto) , Eosinophils (%) ( Auto) , Estimat Glomerular Filtration Rate 99.8, Estimated GFR (Non- 82.5, Glucose Level 94, Hematocrit 30.60L, Hemoglobin 9.9L, Lymphocytes # (Auto) , Lymphocytes (%) (Auto) , Mean Corpuscular Hemoglobin 30.6 , Mean Corpuscular Hemoglobin Concent 32.4, Mean Corpuscular Volume 94, Mean Platelet Volume 9.1, Monocytes # (Auto) , Monocytes (%) (Auto) , Neutrophils # ( Auto) , Neutrophils (%) (Auto) , Platelet Count 275, Potassium Level 4.2, Red Blood Count 3.24L, Red Cell Distribution Width 13.6, Sodium Level 140, White Blood Count 9.02, Absolute Band Neutrophils 0.8, Band Neutrophils % 9H, Basophils # (Manual) 0.0, Basophils % (Manual) 0, Blood Morphology Comment Normal, Differential Total Cells Counted 100, Eosinophils # 0.1, Eosinophils % ( Manual) 1, Lymphocytes # 2.1, Lymphocytes % (Manual) 23, Metamyelocytes % 2H, Monocytes # 0.9, Monocytes % (Manual) 10, Neutrophils # 5.0, Segmented Neutrophils % 55, Alanine Aminotransferase (ALT/SGPT) 24L, Albumin 2.7L, Albumin /Globulin Ratio 0.964L, Alkaline Phosphatase 276H, Aspartate Amino Transf (AST/ SGOT) 12L, Calcium/Ionized Calcium Ratio 4.3, Calculated Osmolality 272L, Total Bilirubin 0.6, Total Protein 5.5L MICRO 02/28 Blood culture Negative to date. 02/28 Resp PCR Panel Negative PATHOLOGY 02/28 Temporal artery biopsy Negative for arteritis. IMAGING 02/28/17 CHEST 1 VIEW, AP/PA ONLY* INDICATION: Shortness of breath and chest pain. TECHNIQUE: A frontal chest was obtained at 0842 hours. COMPARISON: 2015. FINDINGS: There are scattered sclerotic changes in the visualized bony structures, compatible with bony metastatic disease. The heart is mildly enlarged. There is some patchy infiltrate or atelectasis in both lung bases. There is no pneumothorax or pleural fluid. IMPRESSION: Mild cardiomegaly. Patchy infiltrate versus atelectasis in both lung bases which appears at least partially chronic compared to the previous study. There are sclerotic bony changes overlying the rib cage and thoracic spine, compatible with bony metastatic disease. Correlate with the recent CT study of 02/06/2017. REFERENCE 01/17/17 MRI BRAIN WITH/WO: (See EMR for full report.) IMPRESSION: Unremarkable appearance of the orbits, stable chronic senescent findings in the brain, chronic debris within the right petrous apex, stable from 2012. No acute- appearing pathology. Minimal chronic appearing paranasal sinus membrane thickening without air-fluid level. 01/17/17 MRA HEAD WITHOUT: (See EMR for full report.) IMPRESSION: Normal MR angiography of the intracranial arteries without contrast. 12/18/14 ECHO: IMPRESSION: 1. Normal left ventricular ejection fraction at 55% . Mild septal hypertrophy. 2. Mild right ventricular enlargement with the right atrium and left atrium at the upper limits of normal. 3. Grade 1 diastolic dysfunction. 4. Mild mitral, tricuspid, and pulmonary regurgitation. 5. No evidence of pulmonary systolic hypertension. (Note: RVSP was 28 mmHg.) ASSESSMENT Pranav Breen is a 86 year old male admitted from ED 02/28 for acute respiratory distress attributed to community acquired pneumonia in the setting of stage IV COPD. Has had chronic antibiotic therapy with azithromycin and ethambutol for MAC. He has had recent visual changes and stopped ethambutol but with rising CRP and ESR there was also concern for temporal arteritis. He has chronic medical problems including metastatic prostate cancer and chronic pain. PLAN * SIRS/Sepsis: Attributed to community acquired pneumonia. Treated underlying problems. * Acute Respiratory Distress: Objectively improved: SpO2 84% on admit and required 2 L NC but by the time of discharge, improved to > 90% on room air. Subjectively still dyspneic with exertion. * Community Acquired Pneumonia: Blood culture negative. No sputum culture obtained. Resp PCR panel was negative. On meropenem on admit given prior infectious disease history. De-escalated to cefdinir. Course completed 03/06. * COPD/Asthma with Acute Exacerbation: Guaifenesin. Arformoterol, budesonide. Albuterol PRN. * Elevated ESR, Elevated CRP, Possible Giant Cell Arteritis: ESR 72. CRP 22.20. Giant cell arteritis less likely, on the basis of history, exam, and biopsy result (which was negative for arteritis.) Had just unilateral biopsy which decreases sensitivity. No improvement with prednisone 40 mg but typical dose would be 1 mg/kg, max 60 mg. Could continue to treat at 60 mg x 1 week and if no improvement in visual symptoms, giant cell arteritis is then not likely present. * Decreased visual acuity: Sees Dr. Yoo. MRI as noted. With negative workup thus far for giant cell arteritis, this seems less likely to be the cause. Had been taking ethambutol which can cause blindness. This may be the culprit. Relayed records to Dr. Yoo. At discharge, prednisone 60 mg daily but if no visual improvement, consider de-escalating prednisone. * BLE Edema: Chronic, stable, attributed to chronic lung disease. Encourage compression hose use which he has at home. No longer takes spironolactone. Check new echo. * Dyspnea on Exertion: Could be developing heart failure or worsening pulmonary hypertension. Check new echo. Already has home oxygen. Noted that he has satisfactory SpO2 on room air prior to discharge. * F/E/N:Regular. Peripheral IV. I&O, daily weight. * Prophylaxis: Enoxaparin * Code Status: Full code. * Disposition: Inpatient. Offered senior living care but he requested discharge home instead. Likely home after obtaining echo. CHRONIC ISSUES * MAC: Azithromycin, chronic. No longer taking ethambutol. * Prostate Cancer, Stage 4, Metastatic: Follows with Dr. [facility]. Takes abiraterone (Zytiga). * BPH: Tamsulosin * Chronic Pain, OA: Oxycodone/acetaminophen, fentanyl patch * Lower extremity edema: Compression hose. * Umbilical Hernia: Observe. 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 Bowel regimen. * Glaucoma: Brinzolamide, brimonidine. * Midodrine: Uncertain indication. * Depression: Mirtazapine CHET HAHN MD March 06, 2017 13:00
--- NOTE | 2017-03-06 14:29 | NUR ---
MULTIDISCIPLINARY MTG/DR. HAHN: Pt. was admitted for respiratory distress and pneumonia. Pt. treated and improved. Pt. had recent decline in visual acuity. Pt. had a temporal biopsy which was negative. Pt. labs are better and Pt. feels better. Pt. has edema and wears compression hose for this. Ordered an ECHO for today and then Pt. will discharge home on cefdinir and prednisone. Will resume home health services through [facility] and order PT through them.
--- NOTE | 2017-03-06 15:19 | NUR ---
ultrasound is in the room at this time
[2017-03-06 15:33] VITALS: BP 130/73
--- NOTE | 2017-03-06 16:30 | NUR ---
The patient is discharged and readmitted to swing bed at this time
--- NOTE | 2017-03-06 16:49 | Discharge Summary (E) ---
Discharge Summary (E) Admit Date/Time February 28, 2017 at 10:45 Discharge Date/Time March 06, 2017 Admitting Provider Kevin Hunt MD Primary Care Provider Valdez Gallo MD Attending Provider Kevin Hunt MD Consulting Provider REGINALD BANKS MD Procedures 02/28/2017 Temporal artery biopsy. History and Present Illness Pranav Breen is a 86 year old male admitted from ED 02/28 for acute respiratory distress attributed to community acquired pneumonia in the setting of stage IV COPD. Has had chronic antibiotic therapy with azithromycin and ethambutol for MAC. He has had recent visual changes and stopped ethambutol but with rising CRP and ESR there was also concern from his spring coiler for giant cell ( temporal) arteritis. His respiratory status improved with treatment of COPD exacerbation and pneumonia. He had a temporal artery biopsy on the left 02/28. The pathology did not show arteritis. However, prednisone 60 mg was continued for now to see if he has any clinical improvement. For benefit of further rehab as well as close monitoring of his chronic and resolving acute conditions, he was transitioned at this facility to skilled care. Hospital Course and Treatment * SIRS/Sepsis: Resolved. Attributed to community acquired pneumonia. Treated underlying problems. * Acute Respiratory Distress: Objectively improved: SpO2 84% on admit and required 2 L NC but by the time of discharge, improved to > 90% on room air. Subjectively still dyspneic with exertion. Monitor in skilled care. * Community Acquired Pneumonia: Blood culture negative. No sputum culture obtained. Resp PCR panel was negative. On meropenem on admit given prior infectious disease history. De-escalated to cefdinir. Course completed 03/06. * COPD/Asthma with Acute Exacerbation: Guaifenesin. Arformoterol, budesonide. Albuterol PRN. On transition to skilled care, added ipratropium neb BID. ( Consider continuing this at discharge.) * Elevated ESR, Elevated CRP, Possible Giant Cell Arteritis: ESR 72. CRP 22.20. Giant cell arteritis less likely, on the basis of history, exam, and biopsy result (which was negative for arteritis.) Had just unilateral biopsy which decreases sensitivity. No improvement with prednisone 40 mg but typical dose would be 1 mg/kg, max 60 mg. Continue to treat at 60 mg x 1 week and if no improvement in visual symptoms, discuss with spring coiler about tapering off prednisone for concern that giant cell arteritis may not be present. * Decreased visual acuity: Sees Dr. Yoo. MRI/MRA as noted. Workup and empiric therapy for giant cell arteritis as noted. Had been taking ethambutol which can cause blindness. This may be the culprit. Relayed records to Dr. Yoo. Prednisone plan as outlined above. Follow-up with Dr. Yoo after discharge. * BLE Edema: Chronic, stable, attributed to chronic lung disease. New echo pending at the time of transition to skilled care. Encourage compression hose in skilled care. Cautious diuresis with furosemide. * Dyspnea on Exertion: Could be developing heart failure or worsening pulmonary hypertension. New echo pending at the time of transition to skilled care. Already has home oxygen. Noted that he has satisfactory SpO2 on room air prior to discharge. * F/E/N: Regular diet. I&O, daily weight. * Prophylaxis: Enoxaparin * Code Status: Full code. * Disposition: Inpatient. Transitioned to skilled care at this facility 03/06. CHRONIC ISSUES * MAC: Azithromycin, chronic. No longer taking ethambutol. * Prostate Cancer, Stage 4, Metastatic: Follows with Dr. [facility]. Takes abiraterone (Zytiga). * BPH: Tamsulosin * Chronic Pain, OA: Oxycodone/acetaminophen, fentanyl patch * Lower extremity edema: Compression hose. * Umbilical Hernia: Observe. 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 Bowel regimen. * Glaucoma: Brinzolamide, brimonidine. * Hypotension: Midodrine. * Depression: Mirtazapine Discharge Physicial Exam General Vital Signs Date Time Temp Pulse Resp B/P Pulse Ox O2 Delivery O2 Flow Rate FiO2 03/06/17 15:33 97.5 68 18 130/73 95 Room air 0.00 GEN: Awake, interactive, oriented. NAD at present. HEENT: EOMI, clear sclerae, mildly dry oral mucosa. Dressing to left episcopalian C/D/ I. CV: Regular without significant murmur. PULM: Diminished throughout, no R/R/W. ABD: Soft, NT/ND with normal bowel sounds. EXTR: 2+ BLE edema. INTEG: Age related changes. Healing biopsy site, left episcopalian. NEURO: No focal motor neuro deficit. 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 Weight: 96.2 kg (92.4 kg on admit.) Laboratory/Radiology Data CBC stable though he has mild anemia with Hgb lilli 8.7, up to 9.9 03/06. Chemistry was stable. CRP 22.20. ESR 72. Blood culture negative. Respiratory PCR panel negative. Pathology for temporal artery biopsy showed now inflammation. Full lab and imaging details as follows. Lab-Past 14 Days, 35 Results 02/28/17 07:38: Alanine Aminotransferase (ALT/SGPT) 24L, Albumin 2.9L, Albumin/Globulin Ratio 1.074L, Alkaline Phosphatase 632H, Anion Gap 14.1, Aspartate Amino Transf (AST/ SGOT) 15, BUN/Creatinine Ratio 20, Basophils # (Auto) 0.0, Basophils (%) (Auto) 0, Blood Urea Nitrogen 21H, C-Reactive Protein 22.20H, Calcium Level 8.1L, Calcium/Ionized Calcium Ratio 4.0, Calculated Osmolality 273L, Carbon Dioxide Level 26, Chloride Level 102, Creatinine 1.03, Eosinophils # (Auto) 0.0, Eosinophils (%) (Auto) 0, Erythrocyte Sedimentation Rate 72H, Estimat Glomerular Filtration Rate 83.2, Estimated GFR (Non- 68.8, Glucose Level 158#H, Hematocrit 32.60L, Hemoglobin 10.7L, Lymphocytes # (Auto) 1.4, Lymphocytes (%) (Auto) 12L, Mean Corpuscular Hemoglobin 30.9, Mean Corpuscular Hemoglobin Concent 32.8, Mean Corpuscular Volume 94, Mean Platelet Volume 9.0, Monocytes # (Auto) 1.6, Monocytes (%) (Auto) 13H, Neutrophils # ( Auto) 9.0, Neutrophils (%) (Auto) 72H, Platelet Count 245, Potassium Level 4.4, Red Blood Count 3.46L, Red Cell Distribution Width 13.4, Sodium Level 138, Total Bilirubin 1.1H, Total Protein 5.6L, White Blood Count 12.35H 02/28/17 10:05: Urine Bacteria None seen, Urine Bilirubin Negative, Urine Blood Negative, Urine Clarity Clear, Urine Collection Type Clean catch, Urine Color Dark yellow, Urine Glucose (UA) Negative, Urine Hyaline Casts 1+, Urine Ketones 2+H, Urine Leukocyte Esterase Negative, Urine Microscopic RBC None seen, Urine Mucus 1+, Urine Nitrite Negative, Urine Protein 1+H, Urine Specific Kaufman 1.025, Urine Squamous Epithelial Cells 0-2, Urine Urobilinogen 1.0, Urine WBC None seen, Urine pH 5.5, Volume Urine Centrifuged 12 ml 02/28/17 17:50: Adenovirus (PCR) Negative, Bordetella parapertussis DNA (PCR) Negative, Chlamydophila pneumoniae (PCR) Negative, Coronavirus Type 229E (PCR) Negative, Coronavirus Type HKU1 (PCR) Negative, Coronavirus Type NL63 (PCR) Negative, Coronavirus Type OC43 (PCR) Negative, Enterovirus/Rhinovirus (PCR) Negative, Human Metapneumovirus (PCR) Negative, Influenza Type A (H1) (PCR) Negative, Influenza Virus Type B (PCR) Negative, Mycoplasma pneumoniae (PCR) Negative, Parainfluenza Type 1 (PCR) Negative, Parainfluenza Type 2 (PCR) Negative, Parainfluenza Type 3 (PCR) Negative, Parainfluenza Type 4 (PCR) Negative, Respiratory Syncytial Virus (PCR) Negative 03/01/17 05:30: Alanine Aminotransferase (ALT/SGPT) 28L, Albumin 2.4L, Albumin/Globulin Ratio 0.888L, Alkaline Phosphatase 426H, Anion Gap 6.7, Aspartate Amino Transf (AST/ SGOT) 10L, BUN/Creatinine Ratio 19, Basophils # (Auto) , Basophils (%) (Auto) , Blood Urea Nitrogen 19H, C-Reactive Protein 21.90H, Calcium Level 7.4L, Calcium/ Ionized Calcium Ratio 3.9, Calculated Osmolality 275L, Carbon Dioxide Level 32H , Chloride Level 106, Creatinine 0.98, Eosinophils # (Auto) , Eosinophils (%) ( Auto) , Estimat Glomerular Filtration Rate 88.2, Estimated GFR (Non- 72.9, Glucose Level 113#H, Hematocrit 28.10L, Hemoglobin 9.1L, Lymphocytes # (Auto) , Lymphocytes (%) (Auto) , Mean Corpuscular Hemoglobin 31.0 , Mean Corpuscular Hemoglobin Concent 32.4, Mean Corpuscular Volume 96, Mean Platelet Volume 8.8, Monocytes # (Auto) , Monocytes (%) (Auto) , Neutrophils # ( Auto) , Neutrophils (%) (Auto) , Platelet Count 199, Potassium Level 4.1, Red Blood Count 2.94L, Red Cell Distribution Width 13.4, Sodium Level 141, Total Bilirubin 0.5#, Total Protein 5.1L, White Blood Count 7.11, Absolute Band Neutrophils 0.0, Atypical Lymphocytes 2, Band Neutrophils % 0, Basophils # ( Manual) 0.0, Basophils % (Manual) 0, Blood Morphology Comment Normal, Differential Total Cells Counted 100, Eosinophils # 0.1, Eosinophils % (Manual) 1, Lymphocytes # 1.7, Lymphocytes % (Manual) 24, Metamyelocytes % 0, Monocytes # 0.8, Monocytes % (Manual) 12H, Neutrophils # 4.3, Segmented Neutrophils % 61 03/02/17 05:40: Anion Gap 8.3, BUN/Creatinine Ratio 17, Basophils # (Auto) 0.0, Basophils (%) ( Auto) 0, Blood Urea Nitrogen 14, Calcium Level 7.7L, Carbon Dioxide Level 28, Chloride Level 107, Creatinine 0.82, Eosinophils # (Auto) 0.1, Eosinophils (%) ( Auto) 1, Estimat Glomerular Filtration Rate 108.3, Estimated GFR (Non- 89.5, Glucose Level 115H, Hematocrit 27.40L, Hemoglobin 8.7L, Lymphocytes # (Auto) 1.3, Lymphocytes (%) (Auto) 16L, Mean Corpuscular Hemoglobin 30.5, Mean Corpuscular Hemoglobin Concent 31.8, Mean Corpuscular Volume 96, Mean Platelet Volume 9.0, Monocytes # (Auto) 0.8, Monocytes (%) (Auto ) 11, Neutrophils # (Auto) 5.2, Neutrophils (%) (Auto) 68H, Platelet Count 194, Potassium Level 4.3, Red Blood Count 2.85L, Red Cell Distribution Width 13.2, Smear Scan Yes, Sodium Level 139, White Blood Count 7.71 03/04/17 05:05: Anion Gap 13.7, BUN/Creatinine Ratio 17, Basophils # (Auto) , Basophils (%) ( Auto) , Blood Urea Nitrogen 13, Calcium Level 8.8, Carbon Dioxide Level 27, Chloride Level 106, Creatinine 0.78L, Eosinophils # (Auto) , Eosinophils (%) ( Auto) , Estimat Glomerular Filtration Rate 114.7, Estimated GFR (Non- 94.8, Glucose Level 98, Hematocrit 32.20L, Hemoglobin 10.4L, Lymphocytes # (Auto) , Lymphocytes (%) (Auto) , Mean Corpuscular Hemoglobin 30.7 , Mean Corpuscular Hemoglobin Concent 32.3, Mean Corpuscular Volume 95, Mean Platelet Volume 9.0, Monocytes # (Auto) , Monocytes (%) (Auto) , Neutrophils # ( Auto) , Neutrophils (%) (Auto) , Platelet Count 264, Potassium Level 5.2#H, Red Blood Count 3.39L, Red Cell Distribution Width 13.4, Sodium Level 142, White Blood Count 9.17, Absolute Band Neutrophils 0.5, Band Neutrophils % 6, Basophils # (Manual) 0.1, Basophils % (Manual) 1, Blood Morphology Comment Normal, Differential Total Cells Counted 100, Eosinophils # 0.2, Eosinophils % ( Manual) 2, Lymphocytes # 2.8, Lymphocytes % (Manual) 31, Metamyelocytes % 3H, Monocytes # 0.5, Monocytes % (Manual) 6, Neutrophils # 4.7, Segmented Neutrophils % 51 03/05/17 05:10: Basophils # (Auto) , Basophils (%) (Auto) , Eosinophils # (Auto) , Eosinophils ( %) (Auto) , Hematocrit 29.10L, Hemoglobin 9.2L, Lymphocytes # (Auto) , Lymphocytes (%) (Auto) , Mean Corpuscular Hemoglobin 29.9, Mean Corpuscular Hemoglobin Concent 31.6, Mean Corpuscular Volume 95, Mean Platelet Volume 9.1, Monocytes # (Auto) , Monocytes (%) (Auto) , Neutrophils # (Auto) , Neutrophils ( %) (Auto) , Platelet Count 239, Red Blood Count 3.08L, Red Cell Distribution Width 13.5, White Blood Count 7.54, Absolute Band Neutrophils 0.3, Band Neutrophils % 4, Basophils # (Manual) 0.0, Basophils % (Manual) 0, Blood Morphology Comment Normal, Differential Total Cells Counted 100, Eosinophils # 0.2, Eosinophils % (Manual) 3, Lymphocytes # 1.6, Lymphocytes % (Manual) 21, Metamyelocytes % 4H, Monocytes # 0.5, Monocytes % (Manual) 7, Neutrophils # 4.6 , Segmented Neutrophils % 61 03/06/17 06:25: Anion Gap 9.5, BUN/Creatinine Ratio 17, Basophils # (Auto) , Basophils (%) (Auto ) , Blood Urea Nitrogen 15, Calcium Level 8.6L, Carbon Dioxide Level 31H, Chloride Level 104, Creatinine 0.88, Eosinophils # (Auto) , Eosinophils (%) ( Auto) , Estimat Glomerular Filtration Rate 99.8, Estimated GFR (Non- 82.5, Glucose Level 94, Hematocrit 30.60L, Hemoglobin 9.9L, Lymphocytes # (Auto) , Lymphocytes (%) (Auto) , Mean Corpuscular Hemoglobin 30.6 , Mean Corpuscular Hemoglobin Concent 32.4, Mean Corpuscular Volume 94, Mean Platelet Volume 9.1, Monocytes # (Auto) , Monocytes (%) (Auto) , Neutrophils # ( Auto) , Neutrophils (%) (Auto) , Platelet Count 275, Potassium Level 4.2, Red Blood Count 3.24L, Red Cell Distribution Width 13.6, Sodium Level 140, White Blood Count 9.02, Absolute Band Neutrophils 0.8, Band Neutrophils % 9H, Basophils # (Manual) 0.0, Basophils % (Manual) 0, Blood Morphology Comment Normal, Differential Total Cells Counted 100, Eosinophils # 0.1, Eosinophils % ( Manual) 1, Lymphocytes # 2.1, Lymphocytes % (Manual) 23, Metamyelocytes % 2H, Monocytes # 0.9, Monocytes % (Manual) 10, Neutrophils # 5.0, Segmented Neutrophils % 55, Alanine Aminotransferase (ALT/SGPT) 24L, Albumin 2.7L, Albumin /Globulin Ratio 0.964L, Alkaline Phosphatase 276H, Aspartate Amino Transf (AST/ SGOT) 12L, Calcium/Ionized Calcium Ratio 4.3, Calculated Osmolality 272L, Total Bilirubin 0.6, Total Protein 5.5L MICRO 02/28 Blood culture Negative to date. 02/28 Resp PCR Panel Negative PATHOLOGY 02/28 Temporal artery biopsy Negative for arteritis. IMAGING 03/06/17 ECHO: PENDING 02/28/17 CHEST 1 VIEW, AP/PA ONLY* INDICATION: Shortness of breath and chest pain. TECHNIQUE: A frontal chest was obtained at 0842 hours. COMPARISON: 2015. FINDINGS: There are scattered sclerotic changes in the visualized bony structures, compatible with bony metastatic disease. The heart is mildly enlarged. There is some patchy infiltrate or atelectasis in both lung bases. There is no pneumothorax or pleural fluid. IMPRESSION: Mild cardiomegaly. Patchy infiltrate versus atelectasis in both lung bases which appears at least partially chronic compared to the previous study. There are sclerotic bony changes overlying the rib cage and thoracic spine, compatible with bony metastatic disease. Correlate with the recent CT study of 02/06/2017. REFERENCE 01/17/17 MRI BRAIN WITH/WO: (See EMR for full report.) IMPRESSION: Unremarkable appearance of the orbits, stable chronic senescent findings in the brain, chronic debris within the right petrous apex, stable from 2013. No acute- appearing pathology. Minimal chronic appearing paranasal sinus membrane thickening without air-fluid level. 01/17/17 MRA HEAD WITHOUT: (See EMR for full report.) IMPRESSION: Normal MR angiography of the intracranial arteries without contrast. 12/18/14 ECHO: IMPRESSION: 1. Normal left ventricular ejection fraction at 55% . Mild septal hypertrophy. 2. Mild right ventricular enlargement with the right atrium and left atrium at the upper limits of normal. 3. Grade 1 diastolic dysfunction. 4. Mild mitral, tricuspid, and pulmonary regurgitation. 5. No evidence of pulmonary systolic hypertension. (Note: RVSP was 28 mmHg.) Discharge Disposition Transitioned to skilled care at [facility]. Discharge Diet: Regular Follow up Comment Discharge instructions and medication list will appear in D/C summary from [facility]. Copies to: End of Report . CHET HAHN MD March 06, 2017 16:49
[2017-03-07] MEDS ORDERED: predniSONE 20 MG (DELTASONE) TABLET PO SCH (08:00)
[2017-03-08] MEDS ORDERED: PATCH REMOVAL TOP SCH (18:00)
== END 2017-03-06 16:30 | disposition swing bed (61) | DRG 853 ==
LOC: EDUNIT# 07:52 → ED 07:53 → MED/SURG 10:45
PROVIDERS: ADMIT Family Medicine; ATTEND Family Medicine
PROC: 03BT0ZX Excision of Left Temporal Artery, Open Approach, Diagnostic (ICD-10-PCS; principal; 2017-03-02)
DX: A41.9 Sepsis, unspecified organism (principal); J18.9 Pneumonia, unspecified organism; J44.0 Chronic obstructive pulmonary disease with (acute) lower respiratory infection; J44.1 Chronic obstructive pulmonary disease with (acute) exacerbation; J45.901 Unspecified asthma with (acute) exacerbation; A31.0 Pulmonary mycobacterial infection; C61 Malignant neoplasm of prostate; N40.0 Benign prostatic hyperplasia without lower urinary tract symptoms; I10 Essential (primary) hypertension; F32.9 Major depressive disorder, single episode, unspecified; H54.7 Unspecified visual loss; Z66 Do not resuscitate
CPT/HCPCS: 36415; 71010; 80048; 80053; 81003; 81015; 85025; 85652; 86140; 87040; 87486; 87581; 87633; 87798; 93306; 94640; 94760; 94762; 96361; 96365; 99283; 99285

== ENCOUNTER → 2017-02-28 | Outpatient (CLI) | payer MEDICARE, OTHER | LOC: EMS 07:45 | PROVIDERS: ATTEND Emergency Medicine | DX: R06.09 Other forms of dyspnea (principal) ==

== ENCOUNTER 2017-03-06 16:30 | Inpatient (IN) | payer MEDICARE, OTHER ==
[~2017-03-06] VITALS: Ht 177.8 cm; Wt 93.8 kg
--- NOTE | 2017-03-06 14:45 | NUR ---
swing bed interventions are ongoing at this time
[~2017-03-06 16:30] MED LIST changes: +ABIR250T PO; +ALBU1.25 IH; +ARFO15VI2 IH; +BUDE0.255 IH; +CALC1CAP21 PO; +FENT1PAT10 TD; +GFN600TCR PO; +MIDO10TA PO; +NSTU5 PO; +OMEP40CA36 PO; +OXYC10SY PO; +OXYC1TAB12 PO; +POLY17PO6 PO
[2017-03-06 16:57] VITALS: BP 130/95
[2017-03-06] MEDS ORDERED: ACETAMINOPHEN 325 MG TAB (TYLENOL) PO PRN (17:00)
[2017-03-06] MEDS ORDERED: ONDANSETRON 4 MG (ZOFRAN) TABLET PO PRN (17:00)
[2017-03-06] MEDS ORDERED: guaiFENesin ER 600 MG (MUCINEX) TAB PO PRN (17:00)
[2017-03-06] MEDS ORDERED: ALBUTEROL 0.083% NEB SOLUTION 2.5 MG/3 ML VIAL INH PRN (17:00)
[2017-03-06] MEDS ORDERED: SODIUM CHLORIDE FLUSH 10 ML SYR IV PRN (17:00)
--- NOTE | 2017-03-06 17:13 | History and Physical (E) ---
History & Physical PCP: Valdez Gallo MD CC: Deconditioning, respiratory distress, pneumonia, possible temporal arteritis HPI Pranav Breen is a 86 year old male [facility] after acute hospitalization 02/28-03/06 for SIRS/sepsis and acute respiratory distress attributed to community acquired pneumonia and COPD exacerbation. He also had workup for concern of giant cell arteritis as a possible etiology for decline in visual acuity. He improved with therapies as outlined but was felt to benefit from close medical supervision of his chronic and resolving acute medical conditions as well as further rehab with PT/OT. At time of transition to skilled care he was awake, pleasant, interactive, and in no distress. Family were present including daughter and son-in-law and all were updated on findings, plan of care. PMH * COPD * Asthma * Chronic bronchitis * Skin and prostate cancer * Bone cancer- Stage , Dr Davidson * Temporal Arteritis- Dr Yoo * Metastatic prostate cancer * History of tobacco abuse * Constipation * Chronic back pain * Glaucoma * History of pneumonia * Iliac vein DVT * BPH * Periumbilical hernia * Herpetic neuralgia * Hemorrhoids * Pancreatic cyst (has seen Dr. 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 HOME MEDICATIONS: Please see list at end of report. FH Father had CHF, mother had CVA, Alzheimer's and asthma. SH: Lives in his own home. Daughter and son-in-law live with him and provide support. Quit smoking in his 30's. Drinks beer occasionally, more in the summer. No drug use. Still drives. Has a cat at home. ROS CONSTITUTION: Weight has been increasing. HEENT: No GOODMAN, no jaw pain. No trouble swallowing. CV: No chest pain PULM: Dyspnea on exertion still but improved since admit. GI: No upset stomach, nausea, vomiting, constipation, or diarrhea. No blood in stool. : No dysuria. MS: No new muscle or joint aches and pains. NEURO: No new numbness or tingling. INTEG: Left temporal artery biopsy site. ENDO: No heat or cold intolerance. HEME/LYMPH: No easy bruising or bleeding. No swollen glands. PSYCH: Has had some brief, transient episodes of confusion. OBJECTIVE Vital Signs Date Time Temp Pulse Resp B/P Pulse Ox O2 Delivery O2 Flow Rate FiO2 03/06/17 15:33 97.5 68 18 130/73 95 Room air 0.00 GEN: Awake, interactive, oriented. NAD at present. HEENT: EOMI, clear sclerae, mildly dry oral mucosa. Dressing to left episcopal C/D/ I. CV: Regular without significant murmur. PULM: Diminished throughout, no R/R/W. ABD: Soft, NT/ND with normal bowel sounds. EXTR: 2+ BLE edema. INTEG: Age related changes. Healing biopsy site, left episcopal. NEURO: No focal motor neuro deficit. 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 Weight: 96.2 kg (92.4 kg on admit.) Lab-Past 14 Days, 35 Results 02/28/17 07:38: Alanine Aminotransferase (ALT/SGPT) 24L, Albumin 2.9L, Albumin/Globulin Ratio 1.074L, Alkaline Phosphatase 632H, Anion Gap 14.1, Aspartate Amino Transf (AST/ SGOT) 15, BUN/Creatinine Ratio 20, Basophils # (Auto) 0.0, Basophils (%) (Auto) 0, Blood Urea Nitrogen 21H, C-Reactive Protein 22.20H, Calcium Level 8.1L, Calcium/Ionized Calcium Ratio 4.0, Calculated Osmolality 273L, Carbon Dioxide Level 26, Chloride Level 102, Creatinine 1.03, Eosinophils # (Auto) 0.0, Eosinophils (%) (Auto) 0, Erythrocyte Sedimentation Rate 72H, Estimat Glomerular Filtration Rate 83.2, Estimated GFR (Non- 68.8, Glucose Level 158#H, Hematocrit 32.60L, Hemoglobin 10.7L, Lymphocytes # (Auto) 1.4, Lymphocytes (%) (Auto) 12L, Mean Corpuscular Hemoglobin 30.9, Mean Corpuscular Hemoglobin Concent 32.8, Mean Corpuscular Volume 94, Mean Platelet Volume 9.0, Monocytes # (Auto) 1.6, Monocytes (%) (Auto) 13H, Neutrophils # ( Auto) 9.0, Neutrophils (%) (Auto) 72H, Platelet Count 245, Potassium Level 4.4, Red Blood Count 3.46L, Red Cell Distribution Width 13.4, Sodium Level 138, Total Bilirubin 1.1H, Total Protein 5.6L, White Blood Count 12.35H 02/28/17 10:05: Urine Bacteria None seen, Urine Bilirubin Negative, Urine Blood Negative, Urine Clarity Clear, Urine Collection Type Clean catch, Urine Color Dark yellow, Urine Glucose (UA) Negative, Urine Hyaline Casts 1+, Urine Ketones 2+H, Urine Leukocyte Esterase Negative, Urine Microscopic RBC None seen, Urine Mucus 1+, Urine Nitrite Negative, Urine Protein 1+H, Urine Specific [place] 1.025, Urine Squamous Epithelial Cells 0-2, Urine Urobilinogen 1.0, Urine WBC None seen, Urine pH 5.5, Volume Urine Centrifuged 12 ml 02/28/17 17:50: Adenovirus (PCR) Negative, Bordetella parapertussis DNA (PCR) Negative, Chlamydophila pneumoniae (PCR) Negative, Coronavirus Type 229E (PCR) Negative, Coronavirus Type HKU1 (PCR) Negative, Coronavirus Type NL63 (PCR) Negative, Coronavirus Type OC43 (PCR) Negative, Enterovirus/Rhinovirus (PCR) Negative, Human Metapneumovirus (PCR) Negative, Influenza Type A (H1) (PCR) Negative, Influenza Virus Type B (PCR) Negative, Mycoplasma pneumoniae (PCR) Negative, Parainfluenza Type 1 (PCR) Negative, Parainfluenza Type 2 (PCR) Negative, Parainfluenza Type 3 (PCR) Negative, Parainfluenza Type 4 (PCR) Negative, Respiratory Syncytial Virus (PCR) Negative 03/01/17 05:30: Alanine Aminotransferase (ALT/SGPT) 28L, Albumin 2.4L, Albumin/Globulin Ratio 0.888L, Alkaline Phosphatase 426H, Anion Gap 6.7, Aspartate Amino Transf (AST/ SGOT) 10L, BUN/Creatinine Ratio 19, Basophils # (Auto) , Basophils (%) (Auto) , Blood Urea Nitrogen 19H, C-Reactive Protein 21.90H, Calcium Level 7.4L, Calcium/ Ionized Calcium Ratio 3.9, Calculated Osmolality 275L, Carbon Dioxide Level 32H , Chloride Level 106, Creatinine 0.98, Eosinophils # (Auto) , Eosinophils (%) ( Auto) , Estimat Glomerular Filtration Rate 88.2, Estimated GFR (Non- 72.9, Glucose Level 113#H, Hematocrit 28.10L, Hemoglobin 9.1L, Lymphocytes # (Auto) , Lymphocytes (%) (Auto) , Mean Corpuscular Hemoglobin 31.0 , Mean Corpuscular Hemoglobin Concent 32.4, Mean Corpuscular Volume 96, Mean Platelet Volume 8.8, Monocytes # (Auto) , Monocytes (%) (Auto) , Neutrophils # ( Auto) , Neutrophils (%) (Auto) , Platelet Count 199, Potassium Level 4.1, Red Blood Count 2.94L, Red Cell Distribution Width 13.4, Sodium Level 141, Total Bilirubin 0.5#, Total Protein 5.1L, White Blood Count 7.11, Absolute Band Neutrophils 0.0, Atypical Lymphocytes 2, Band Neutrophils % 0, Basophils # ( Manual) 0.0, Basophils % (Manual) 0, Blood Morphology Comment Normal, Differential Total Cells Counted 100, Eosinophils # 0.1, Eosinophils % (Manual) 1, Lymphocytes # 1.7, Lymphocytes % (Manual) 24, Metamyelocytes % 0, Monocytes # 0.8, Monocytes % (Manual) 12H, Neutrophils # 4.3, Segmented Neutrophils % 61 03/02/17 05:40: Anion Gap 8.3, BUN/Creatinine Ratio 17, Basophils # (Auto) 0.0, Basophils (%) ( Auto) 0, Blood Urea Nitrogen 14, Calcium Level 7.7L, Carbon Dioxide Level 28, Chloride Level 107, Creatinine 0.82, Eosinophils # (Auto) 0.1, Eosinophils (%) ( Auto) 1, Estimat Glomerular Filtration Rate 108.3, Estimated GFR (Non- 89.5, Glucose Level 115H, Hematocrit 27.40L, Hemoglobin 8.7L, Lymphocytes # (Auto) 1.3, Lymphocytes (%) (Auto) 16L, Mean Corpuscular Hemoglobin 30.5, Mean Corpuscular Hemoglobin Concent 31.8, Mean Corpuscular Volume 96, Mean Platelet Volume 9.0, Monocytes # (Auto) 0.8, Monocytes (%) (Auto ) 11, Neutrophils # (Auto) 5.2, Neutrophils (%) (Auto) 68H, Platelet Count 194, Potassium Level 4.3, Red Blood Count 2.85L, Red Cell Distribution Width 13.2, Smear Scan Yes, Sodium Level 139, White Blood Count 7.71 03/04/17 05:05: Anion Gap 13.7, BUN/Creatinine Ratio 17, Basophils # (Auto) , Basophils (%) ( Auto) , Blood Urea Nitrogen 13, Calcium Level 8.8, Carbon Dioxide Level 27, Chloride Level 106, Creatinine 0.78L, Eosinophils # (Auto) , Eosinophils (%) ( Auto) , Estimat Glomerular Filtration Rate 114.7, Estimated GFR (Non- 94.8, Glucose Level 98, Hematocrit 32.20L, Hemoglobin 10.4L, Lymphocytes # (Auto) , Lymphocytes (%) (Auto) , Mean Corpuscular Hemoglobin 30.7 , Mean Corpuscular Hemoglobin Concent 32.3, Mean Corpuscular Volume 95, Mean Platelet Volume 9.0, Monocytes # (Auto) , Monocytes (%) (Auto) , Neutrophils # ( Auto) , Neutrophils (%) (Auto) , Platelet Count 264, Potassium Level 5.2#H, Red Blood Count 3.39L, Red Cell Distribution Width 13.4, Sodium Level 142, White Blood Count 9.17, Absolute Band Neutrophils 0.5, Band Neutrophils % 6, Basophils # (Manual) 0.1, Basophils % (Manual) 1, Blood Morphology Comment Normal, Differential Total Cells Counted 100, Eosinophils # 0.2, Eosinophils % ( Manual) 2, Lymphocytes # 2.8, Lymphocytes % (Manual) 31, Metamyelocytes % 3H, Monocytes # 0.5, Monocytes % (Manual) 6, Neutrophils # 4.7, Segmented Neutrophils % 51 03/05/17 05:10: Basophils # (Auto) , Basophils (%) (Auto) , Eosinophils # (Auto) , Eosinophils ( %) (Auto) , Hematocrit 29.10L, Hemoglobin 9.2L, Lymphocytes # (Auto) , Lymphocytes (%) (Auto) , Mean Corpuscular Hemoglobin 29.9, Mean Corpuscular Hemoglobin Concent 31.6, Mean Corpuscular Volume 95, Mean Platelet Volume 9.1, Monocytes # (Auto) , Monocytes (%) (Auto) , Neutrophils # (Auto) , Neutrophils ( %) (Auto) , Platelet Count 239, Red Blood Count 3.08L, Red Cell Distribution Width 13.5, White Blood Count 7.54, Absolute Band Neutrophils 0.3, Band Neutrophils % 4, Basophils # (Manual) 0.0, Basophils % (Manual) 0, Blood Morphology Comment Normal, Differential Total Cells Counted 100, Eosinophils # 0.2, Eosinophils % (Manual) 3, Lymphocytes # 1.6, Lymphocytes % (Manual) 21, Metamyelocytes % 4H, Monocytes # 0.5, Monocytes % (Manual) 7, Neutrophils # 4.6 , Segmented Neutrophils % 61 03/06/17 06:25: Anion Gap 9.5, BUN/Creatinine Ratio 17, Basophils # (Auto) , Basophils (%) (Auto ) , Blood Urea Nitrogen 15, Calcium Level 8.6L, Carbon Dioxide Level 31H, Chloride Level 104, Creatinine 0.88, Eosinophils # (Auto) , Eosinophils (%) ( Auto) , Estimat Glomerular Filtration Rate 99.8, Estimated GFR (Non- 82.5, Glucose Level 94, Hematocrit 30.60L, Hemoglobin 9.9L, Lymphocytes # (Auto) , Lymphocytes (%) (Auto) , Mean Corpuscular Hemoglobin 30.6 , Mean Corpuscular Hemoglobin Concent 32.4, Mean Corpuscular Volume 94, Mean Platelet Volume 9.1, Monocytes # (Auto) , Monocytes (%) (Auto) , Neutrophils # ( Auto) , Neutrophils (%) (Auto) , Platelet Count 275, Potassium Level 4.2, Red Blood Count 3.24L, Red Cell Distribution Width 13.6, Sodium Level 140, White Blood Count 9.02, Absolute Band Neutrophils 0.8, Band Neutrophils % 9H, Basophils # (Manual) 0.0, Basophils % (Manual) 0, Blood Morphology Comment Normal, Differential Total Cells Counted 100, Eosinophils # 0.1, Eosinophils % ( Manual) 1, Lymphocytes # 2.1, Lymphocytes % (Manual) 23, Metamyelocytes % 2H, Monocytes # 0.9, Monocytes % (Manual) 10, Neutrophils # 5.0, Segmented Neutrophils % 55, Alanine Aminotransferase (ALT/SGPT) 24L, Albumin 2.7L, Albumin /Globulin Ratio 0.964L, Alkaline Phosphatase 276H, Aspartate Amino Transf (AST/ SGOT) 12L, Calcium/Ionized Calcium Ratio 4.3, Calculated Osmolality 272L, Total Bilirubin 0.6, Total Protein 5.5L MICRO 02/28 Blood culture Negative to date. 02/28 Resp PCR Panel Negative PATHOLOGY 02/28 Temporal artery biopsy Negative for arteritis. IMAGING 03/06/17 ECHO: PENDING 02/28/17 CHEST 1 VIEW, AP/PA ONLY* INDICATION: Shortness of breath and chest pain. TECHNIQUE: A frontal chest was obtained at 0842 hours. COMPARISON: 2015. FINDINGS: There are scattered sclerotic changes in the visualized bony structures, compatible with bony metastatic disease. The heart is mildly enlarged. There is some patchy infiltrate or atelectasis in both lung bases. There is no pneumothorax or pleural fluid. IMPRESSION: Mild cardiomegaly. Patchy infiltrate versus atelectasis in both lung bases which appears at least partially chronic compared to the previous study. There are sclerotic bony changes overlying the rib cage and thoracic spine, compatible with bony metastatic disease. Correlate with the recent CT study of 02/06/2017. REFERENCE 01/17/17 MRI BRAIN WITH/WO: (See EMR for full report.) IMPRESSION: Unremarkable appearance of the orbits, stable chronic senescent findings in the brain, chronic debris within the right petrous apex, stable from 2012. No acute- appearing pathology. Minimal chronic appearing paranasal sinus membrane thickening without air-fluid level. 01/17/17 MRA HEAD WITHOUT: (See EMR for full report.) IMPRESSION: Normal MR angiography of the intracranial arteries without contrast. 12/18/14 ECHO: IMPRESSION: 1. Normal left ventricular ejection fraction at 55% . Mild septal hypertrophy. 2. Mild right ventricular enlargement with the right atrium and left atrium at the upper limits of normal. 3. Grade 1 diastolic dysfunction. 4. Mild mitral, tricuspid, and pulmonary regurgitation. 5. No evidence of pulmonary systolic hypertension. (Note: RVSP was 28 mmHg.) ASSESSMENT Pranav Breen is a 86 year old male [facility] after acute hospitalization 02/28-03/06 for SIRS/sepsis and acute respiratory distress attributed to community acquired pneumonia and COPD exacerbation. He also had workup for concern of giant cell arteritis as a possible etiology for decline in visual acuity. He improved with therapies as outlined but was felt to benefit from close medical supervision of his chronic and resolving acute medical conditions as well as further rehab with PT/OT. PLAN * Deconditioning: PT/OT eval and treat. * Acute Respiratory Distress: Resolving. Objectively improved: SpO2 84% on admit and required 2 L NC but by the time of discharge, improved to > 90% on room air. Subjectively still dyspneic with exertion. Monitor in skilled care. * Dyspnea on Exertion: Could be developing heart failure or worsening pulmonary hypertension. New echo pending at the time of transition to skilled care. Already has home oxygen. Noted that he has satisfactory SpO2 on room air prior to discharge. * Community Acquired Pneumonia: Resolving. Blood culture negative. No sputum culture obtained. Resp PCR panel was negative. On meropenem on admit given prior infectious disease history. De-escalated to cefdinir. Extended on transition to skilled care to complete a full 10-day course. Follow-up CXR in 2 weeks. * COPD/Asthma with Acute Exacerbation: Guaifenesin. Arformoterol, budesonide. Albuterol PRN. On transition to skilled care, added ipratropium neb BID. ( Consider continuing this at discharge.) * Elevated ESR, Elevated CRP, Possible Giant Cell Arteritis: ESR 72. CRP 22.20. Giant cell arteritis less likely, on the basis of history, exam, and biopsy result (which was negative for arteritis.) Had just unilateral biopsy which decreases sensitivity. No improvement with prednisone 40 mg but typical dose would be 1 mg/kg, max 60 mg. Continue to treat at 60 mg x 1 week and if no improvement in visual symptoms, discuss with reconnaissance man about tapering off prednisone for concern that giant cell arteritis may not be present. * Decreased visual acuity: Sees Dr. Yoo. MRI/MRA as noted. Workup and empiric therapy for giant cell arteritis as noted. Had been taking ethambutol which can cause blindness. This may be the culprit. Relayed records to Dr. Yoo. Prednisone plan as outlined above. Follow-up with Dr. Yoo after discharge. * BLE Edema: Chronic, stable, attributed to chronic lung disease. New echo pending at the time of transition to skilled care. Encourage compression hose in skilled care. Cautious diuresis with furosemide started 03/06. * F/E/N: Regular diet. I&O, daily weight. * Prophylaxis: Enoxaparin * Code Status: Full code. * Disposition: Inpatient. Transitioned to skilled care at this facility 03/06. RESOLVED ISSUES * SIRS/Sepsis CHRONIC ISSUES * MAC: Azithromycin, chronic. No longer taking ethambutol. * Prostate Cancer, Stage 4, Metastatic: Follows with Dr. [facility]. Takes abiraterone (Zytiga). * BPH: Tamsulosin * Chronic Pain, OA: Oxycodone/acetaminophen, fentanyl patch * Lower extremity edema: Compression hose. * Umbilical Hernia: Observe. 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 Bowel regimen. * Glaucoma: Brinzolamide, brimonidine. * Hypotension: Midodrine. * Depression: Mirtazapine Allergies/Home Medications Allergies: Coded Allergies: Penicillins (Verified Allergy, Unknown, CAN TAKE AMOXIL., 03/19/16) dexamethasone (Verified Allergy, Unknown, 03/19/16) PER [facility] neomycin (Verified Allergy, Unknown, 03/19/16) PER [facility] polymyxin B sulfate (Verified Allergy, Unknown, 03/19/16) PER [facility] Reported Home Medications Scheduled Arformoterol Tartrate (Brovana) 15 MCG IH BID (Reported) Azithromycin (Azithromycin) 250 MG PO DAILY (Reported) Brinzolamide/Brimonid Tart (Simbrinza 1%-0.2% Eye Drops) 1 DROP OU DAILY ( Reported) Budesonide (Pulmicort) 0.25 MG IH BID (Reported) Calcium Carbonate/Vitamin D3 (Calcium 600 + D3 Softgel) 1 EACH PO BID (Reported ) Fentanyl (Fentanyl Patch 75mcg/hr) 1 EACH TD Q72H (Reported) Midodrine HCl (Midodrine HCl) 10 MG PO TID (Reported) Mirtazapine (Mirtazapine) 15-30 MG PO HS (Reported) Nystatin (Mycostatin 100,000 units/ml) 5 ML PO BID (Reported) Omeprazole (Omeprazole) 40 MG PO DAILY (Reported) Polyethylene Glycol 3350 (Miralax) 17 GM PO BID (Reported) Prednisone (Prednisone) 20 MG PO DAILY (Reported) Tamsulosin HCl (Tamsulosin HCl) 0.4 MG PO DAILY (Reported) Scheduled PRN Albuterol Sulfate (Albuterol Sulfate) 1.25 MG IH QID PRN PRN DYSPNEA (Reported) Furosemide (Furosemide) 20-40 MG PO DAILY PRN PRN edema (Reported) Guaifenesin (Mucinex) 600 MG PO BID PRN PRN COUGH (Reported) Hydrocodone/Acetaminophen (Ulysses 7.5mg/325mg) 2 TAB PO BID PRN PRN PAIN ( Reported) Lorazepam (Ativan) 0.5 MG PO Q8H PRN PRN ANXIETY Oxycodone HCl/Acetaminophen (Percocet 10mg/325mg) 1 TAB PO Q4H PRN PRN PAIN ( Reported) Discontinued Medications Abiraterone Acetate (Zytiga) 1,000 MG PO DAILY (Reported) Discontinued Reason: Course completed Calcium Carbonate (Calcium) 500 MG PO DAILY (Reported) Discontinued Reason: Course completed Cholecalciferol (Vitamin D3) (Vitamin D3) 1,000 UNIT PO DAILY (Reported) Discontinued Reason: Course completed Enzalutamide (Xtandi) 160 MG PO DAILY (Reported) Discontinued Reason: Course completed Furosemide (Furosemide) 40 MG PO DAILY (Reported) Discontinued Reason: Course completed Hydrocodone/Acetaminophen (Ulysses 7.5mg/325mg) 2 TAB PO QID PRN PRN PAIN ( Reported) Discontinued Reason: Course completed Mometasone/Formoterol (Dulera 100 mcg/5 mcg Inhaler) 13 GM IH BID (Reported) Discontinued Reason: Course completed Oxycodone HCl (Oxycodone HCl) 15 MG PO NEEDED (Reported) Discontinued Reason: Course completed Polyethylene Glycol 3350 (Miralax) 17 GM PO DAILY (Reported) Discontinued Reason: Course completed Spironolactone (Aldactone) 25 MG PO DAILY (Reported) Discontinued Reason: Course completed Tiotropium Archer (Spiriva) 18 MCG IH DAILY (Reported) Discontinued Reason: Course completed Copies to: End of Report . CHET HAHN MD March 06, 2017 17:12
[2017-03-06] MEDS: PATCH REMOVAL TOP SCH (17:23)
[2017-03-06] MEDS: FUROSEMIDE 20 MG (LASIX) TAB PO SCH (17:46)
[2017-03-06] MEDS: MIDODRINE 5 MG PO SCH (17:46)
[2017-03-06] MEDS: fentaNYL PATCH 75 MCG (DURAGESIC) TD SCH (17:47)
--- NOTE | 2017-03-06 19:12 | NUR ---
report given to Abby COOPER and care relinquished
[2017-03-06] MEDS ORDERED: IPRATROPIUM 0.02% NEB SOLN 0.5 MG/2.5 ML (ATROVENT) INH ONE (19:52)
[2017-03-06 20:07] VITALS: BP 162/72
[2017-03-06] MEDS: CALCIUM CARBONATE 500 MG + VITAMIN D 200 IU TABLET PO SCH (20:08)
[2017-03-06] MEDS: CEFDINIR 300 MG (OMNICEF) CAPSULE PO SCH (20:08)
[2017-03-06] MEDS: MIRTAZAPINE 15 MG (REMERON) TABLET PO SCH (20:09)
[2017-03-06] MEDS: oxyCODONE IMMEDIATE RELEASE 5 MG (OXYIR) TAB PO PRN (20:12)
[2017-03-06] MEDS: NYSTATIN ORAL SUSPENSION 5 ML UDC PO SCH (20:17)
[2017-03-06] MEDS: BUDESONIDE NEBS 0.25 MG/2 ML (PULMICORT) AMP INH SCH (20:18)
[2017-03-06] MEDS: ARFORMOTEROL NEB SOLUTION (BROVANA) 15 MCG/2 ML VIAL IH SCH (20:18)
[2017-03-06] MEDS: IPRATROPIUM 0.02% NEB SOLN 0.5 MG/2.5 ML (ATROVENT) INH SCH (20:18)
--- NOTE | 2017-03-06 20:26 | NUR ---
Pt is awake sitting in recliner with legs elevated, resting comfortably on room air; SPO2 97%.
[2017-03-07] MEDS ORDERED: PANTOPRAZOLE 40 MG (PROTONIX) TAB PO ONE (05:56)
[2017-03-07] MEDS: PANTOPRAZOLE 40 MG (PROTONIX) TAB PO SCH (05:59)
[2017-03-07] MEDS: HOME MEDICATION PO SCH (06:02)
[2017-03-07] MEDS: oxyCODONE IMMEDIATE RELEASE 5 MG (OXYIR) TAB PO PRN ×2 (06:07→16:06)
--- NOTE | 2017-03-07 06:27 | NUR ---
Ambulated to bathroom with steady gait, returns to recliner, po intake of medications, requesting prn pain medication "the 10 mg one". Oxycodone per prn order administered for chronic pain. continue to monitor
[2017-03-07 06:51] LABS: ALBUMIN 2.6 g/dL (3.4-5.0); ANION GAP 10.2 MEQ/L (3-15); MAGNESIUM* 2.2 mg/dL (1.6-2.3)
[2017-03-07 07:37] VITALS: BP 120/63
[2017-03-07] MEDS: IPRATROPIUM 0.02% NEB SOLN 0.5 MG/2.5 ML (ATROVENT) INH SCH ×2 (07:57→19:42)
[2017-03-07] MEDS: ARFORMOTEROL NEB SOLUTION (BROVANA) 15 MCG/2 ML VIAL IH SCH ×2 (07:57→19:41)
[2017-03-07] MEDS: BUDESONIDE NEBS 0.25 MG/2 ML (PULMICORT) AMP INH SCH ×2 (07:58→19:42)
--- NOTE | 2017-03-07 08:01 | NUR ---
SpO2 92% on Room Air. BS Clear.
[2017-03-07] MEDS: POLYETHYLENE GLYCOL 17 GM (MIRALAX) PACKET PO SCH (08:35)
[2017-03-07] MEDS: BRIMONIDINE 0.2% OU SCH (08:35)
[2017-03-07] MEDS: CALCIUM CARBONATE 500 MG + VITAMIN D 200 IU TABLET PO SCH ×2 (08:36→20:18)
[2017-03-07] MEDS: FUROSEMIDE 20 MG (LASIX) TAB PO SCH (08:36)
[2017-03-07] MEDS: AZITHROMYCIN 250 MG TAB (ZITHROMAX) PO SCH (08:36)
[2017-03-07] MEDS: predniSONE 20 MG (DELTASONE) TABLET PO SCH (08:36)
[2017-03-07] MEDS: CEFDINIR 300 MG (OMNICEF) CAPSULE PO SCH ×2 (08:36→20:19)
[2017-03-07] MEDS: MIDODRINE 5 MG PO SCH ×3 (08:36→18:14)
[2017-03-07] MEDS: BRINZOLAMIDE 1% OU SCH (08:36)
[2017-03-07] MEDS: ENOXAPARIN 40 MG/0.4 ML (LOVENOX) SYR SC SCH (08:37)
[2017-03-07] MEDS: NYSTATIN ORAL SUSPENSION 5 ML UDC PO SCH ×2 (08:37→20:20)
[2017-03-07] MEDS: TAMSULOSIN 0.4 MG (FLOMAX) CAP PO SCH (09:46)
--- NOTE | 2017-03-07 11:06 | OT Therapy Evaluation (E) ---
POC Plan of Care Problems Identified: Activity Tolerance, ADLs, Balance, Lt UE Strength, Rt UE Strength, Safety Awareness Plan: Evaluation-OT, ADL/Self Care Management, Therapy Exercises, Therapy Activities, Pt/Family/Staff Education Frequency of OT: Five times weekly Duration of OT: 2 weeks Therapy to Include: ADL training, Balance with ADLs, Pt/family education, Therapeutic activities, UE strengthing Discharge Recommendations: Caregiver support Pt would benefit from skilled occupational therapy service to improve independence with self care tasks. Additionally to provide recommendations and education on energy conservation techniques and deep breathing techniques to improve performance. Pt. Aware of Dx and Prognosis: Yes Pt. Aware of Risk & Benefit: Yes Goals: Discussed with patient Short Term Goals STG Time Frame: 5 Days Will Dress Upper Extremity: With Setup/SBA Will do Bathing: With Setup/SBA Will do Toileting: With Setup/SBA Will Perform Funct Transfer: With Setup/SBA STG #1 Pt will participate in 15 min of ther-ex with use of energy conservation techniques as needed. STG #2 Pt will complete grooming tasks with SBA. Bench Manager Goals LTG Time Frame: 2 Weeks Will Dress Upper Extremity: Independently Will Dress Lower Extremity: With Min Assistance Will do Tub/Shower Transfer: Independently Will Bathe Self: Independently Will do Toilet Transfers: Independently Will do Toilieting: Independently Will Perform Kitchen Mobility: Independently LTG # 1 Pt will demonstrate ability to apply deep breathing techniques with independence during self care tasks and exercises to ease shortness of breath and improve performance. Inital Evaluation/General Service Date/Time 03/07/17, 11:05 Primary Diagnosis: (1) Community acquired pneumonia ICD Code: J18.9 (2) Acute respiratory distress ICD Code: J80 (3) Physical deconditioning ICD Code: R53.81 Treatment Diagnosis: (1) Weakness ICD Code: R53.1 Onset Date: 02/28/17 Start of Care Date: March 07, 2017 Precaution/Isolation: Standard Precautions Fall Level: Low Risk 25-50 Reason for Referral: Evaluation and Treat Pertinent Medical History: Other (COPD, Asthma, Chronic Bronchitis, skin and prostatic cancer, bone cancer stage IV, BPH) Pain Level: 3 Pain Locattion/Comments Lower back Oxygen Needed: Room air O2 liters/minute: 0 Rehabilitation Potential: Good Potential Based On Patient's motivation to return home. Rational for Skilled Treatment: Allow return to home, Deconditioning, Maximize Safety Living Status Prior to Admit: With Family (Lives with daughter and son-in-law ) Prior Level of Function: Independent ADLs Pt to onset, pt was independent with self care tasks. Pt receives assistance with donning shoes and socks secondary to SOB during tasks. Pt reports someone is with him at all times. Pt received home health services once a week from [facility] to check vitals. Daughter completes cooking, cleaning, medication management, shopping. Pt no longer drives secondary to vision concerns. Plans Following Discharge: Return Home Support Persons: Adult Child Entry Into Home: [place] with Railing Steps Into Home: 2 Shower and Tub Type: Tub/shower combo-rails Assist Devices: Tub Bench Toilet Type: Raised with grab bars Comment Pt does not use an assistive device for functional mobility. Current Function Assessment Mental Status Patient Orientation: Person, Place, Time, Situation Mental Status: Alert Cognition Attention: Intact Memory: Intact Safety/Judgement: Intact Visual/Perceptual Skills Glassess: Yes Hearing: Impaired Comment Pt reports difficulty with eye sight since September. Able to correctly identify time on clock for far vision testing. Difficulty with near vision testing. Improved vision with contrast. Hand Dominance Hand Dominance: Right ROM/Strength Range of Motion : ROM: WNL Strength Comment BUE 4/5 Skin and Positioning Integumentary: Rt UE edema, Lt UE edema Endurance Activity Endurance: Poor (Pt completed functional mobility from room to supplies room. Following activity, assessed pt's O2 level with it being 58. With deep breathing technique, pt able to increase it to 93 within 15 seconds. Notified nursing of drop in O2 status with recommendations of luizen with activity and therapy. ) Bed Mobility/Transfers Sit to Stand: CGA Chair Transfer: CGA Sitting Balance: WFL ADLs Hand : Feeding Self: Independent Grooming: Grooming Status: Setup/SBA Dressing Dressing: Moderate assist Bathing Shower/Bench Transfer Ability: CGA Bathing- Type of Assistance: Minimum Assist Toileting Toilet Hygiene: CGA Toilet Transfer Ability: CGA CPT/G Codes Time In: 9:10 Time Out: 9:35 Total Minutes: 25 CPT Codes: 47223 Eval< 20 minutes (11/23 eval) MARCO ANTONIO COREA OT March 07, 2017 11:05
--- NOTE | 2017-03-07 11:10 | OT Activity Assessment (E) ---
Activity Assessment Service Date/Time 03/07/17, 11:06 Activities Pets: Cat Music: Jazz Television: News, Other ([employer] Classic Movies ) Reading: Other (Books), Magazines Comment Pt reports he used to like to read, but does not since he is having difficulty with reading. Daughter is brining Asndy for audio books. Pt enjoys sitting at the bonner. MARCO ANTONIO COREA OT March 07, 2017 11:10
--- NOTE | 2017-03-07 12:07 | OT Daily Note Inpatient (E) ---
OT Daily Treatment Service Date/Time 03/07/17, 12:02 Primary Diagnosis: (1) Community acquired pneumonia ICD Code: J18.9 (2) Acute respiratory distress ICD Code: J80 (3) Physical deconditioning ICD Code: R53.81 Treatment Diagnosis: (1) Weakness ICD Code: R53.1 Onset Date: 02/28/17 Start of Care Date: March 07, 2017 Precaution/Isolation: Standard Precautions Fall Level: Low Risk 25-50 Current Activity: Agrees to participate, Up in chair I thought I was going home. I dont understand why. Oxygen Needed: Room air O2 liters/minute: 0 Current Function Assessment Cognition Attention: Intact Memory: Intact Safety/Judgement: Intact Visual/Perceptual Skills Glassess: Yes Hearing: Impaired Hand Dominance Hand Dominance: Right Treatments Strengthening Exercise Upper Extremity Strength Exerc : Upper Extremity: Bilateral Exercise Type: AROM Repetitions: 10 X 1 Amount of Resistance: Yellow Education/Assessment Treatment Tolerance: [place] trmnt w/o complaints Problems Impacting Treatment: Deconditioning Rehabilitation Potential: Good Pt wa able to keep 02 levels above 90% with 1 L 02 with activity. POC Plan of Care Problems Identified: Activity Tolerance, ADLs, Balance, Lt UE Strength, Rt UE Strength, Safety Awareness Plan: Evaluation-OT, ADL/Self Care Management, Therapy Exercises, Therapy Activities, Pt/Family/Staff Education Frequency of OT: Five times weekly Duration of OT: 2 weeks Therapy to Include: ADL training, Balance with ADLs, Pt/family education, Therapeutic activities, UE strengthing Discharge Recommendations: Caregiver support Pt. Aware of Dx and Prognosis: Yes Pt. Aware of Risk & Benefit: Yes Goals: Discussed with patient Short Term Goals STG Time Frame: 5 Days Will Dress Upper Extremity: With Setup/SBA Will do Bathing: With Setup/SBA Will do Toileting: With Setup/SBA Will Perform Funct Transfer: With Setup/SBA STG #1 Pt will participate in 15 min of ther-ex with use of energy conservation techniques as needed. STG #2 Pt will complete grooming tasks with SBA. Material Combiner Goals LTG Time Frame: 2 Weeks Will Dress Upper Extremity: Independently Will Dress Lower Extremity: With Min Assistance Will do Tub/Shower Transfer: Independently Will Bathe Self: Independently Will do Toilet Transfers: Independently Will do Toilieting: Independently Will Perform Kitchen Mobility: Independently LTG # 1 Pt will demonstrate ability to apply deep breathing techniques with independence during self care tasks and exercises to ease shortness of breath and improve performance. CPT/G Codes Time In: 1023 Time Out: 1056 Total Minutes: 30 CPT Codes: 88349 Exercise Ther Genna Uriostegui March 07, 2017 12:07
--- NOTE | 2017-03-07 17:09 | Physical Therapy Evaluation(E) ---
Plan of Care STG: Plan-Treatment Functional: Trans. Safe w/ AD STG Time Frame: 2 Days LTG Time Frame: 7 Days Goals Discussed/Agreed: Yes Plan: Balance, Gait & Transfer Training, Neuro Re-Education, Progressive Ambulation, Transfer Training, Therapy Excercise Discharge Recommendations: Caregiver support Aware of Dx and Prognosis: Yes Aware of Risk & Benefit: Yes To be Seen: Daily Monday-Monday Initial Evaluation Service Date/Time 03/07/17, 17:06 Primary Diagnosis: (1) Community acquired pneumonia ICD Code: J18.9 (2) Acute respiratory distress ICD Code: J80 (3) Physical deconditioning ICD Code: R53.81 Treatment Diagnosis: (1) Hypoxia ICD Code: R09.02 (2) Physical deconditioning ICD Code: R53.81 (3) Fatigue (4) Weakness ICD Code: R53.1 (5) Acute respiratory distress ICD Code: J80 (6) Community acquired pneumonia ICD Code: J18.9 Onset Date: 03/01/2017 Start of Care Date: March 07, 2017 Precaution/Isolation: Standard Precautions Fall Level: Low Risk 25-50 Initial Assessment Reason for Rehab: Increase Mobility, Increase Strength, Increase Balance, Increase Transfers Medical History: Other (COPD, Asthma, Chronic Bronchitis, skin and prostatic cancer, bone cancer stage IV, BPH) Pain Location/Comment Patient's pain is being managed with pain medication and at time of evaluation the patient denied pain. Prior Level of Function The patient lives at home with his family. He ambulates independently around his home. The home is set up with adaptive equipment in the shower. The patient has three entry steps with hand rails. He mainly completed household ambulation. Rehabilitation Potential: Good Comment Patient has excellent support from family and is motivated to return home. Assistive Device: FWW Distance Walked in Feet 170 feet. Assist: Min Assist/Contact Guard ROM/Strength Hip Mobility: Right Hip Strength: 4- Left Hip Strength: 4- Knee Flexion Mobility: Right Knee Flexion Strength: 4 Left Knee Flexion Strength: 4 Knee Extension Mobility: Right Knee Extension Strength: 4+ Left Knee Extension Strength: 4+ Ankle Mobility: Right Ankle Strength: 4+ Left Ankle Strength: 4+ Assessment/Goals Initial Transfer Assessment Rolling: Not Assessed/NA Sit-Supine: Not Assessed/NA Sit-Stand from Bed: Supervision or setup Stand-Sit: Supervision or setup Ambulation: Contact Guard Assist Distance Walked in Feet 170 feet, 55 feet. Comment Patient with 02 saturation 92%, HR 100 bpm. Transfer Short Term Goals Sitting Edge of Bed: Modified [place] Supine-Sit: Modified [place] Sit-Stand from bed: Modified [place] Stand-Sit: Modified [place] Ambulation: Supervision or setup Distance to Walk in Feet 200 feet . Comment Additional therapy goals: 1) Patient will ambulate 30 feet with independence without AD to return to prior functional level. 2) Patient will traverse three entry steps with hand rail with supervision. 3) patient will tolerate greater than or equal to 5 minutes of standing activity without 02desaturation. Treatments Ambulation Assistive Device: FWW Gait Assist: Min Assist/Contact Guard Patient fatigued with maintaining 02 saturation. Coding Time In: 1537 Time Out: 1601 Total Minutes: 24 Charges: 48253 Eval< 20 min, 70416 Gait Training 15 mi AMRYA TIERNEY PT March 07, 2017 17:09
--- NOTE | 2017-03-07 17:56 | NUR ---
PT reports patient desaturated during activity this morning. Saturation reportedly dropped to 78% on roomair but recovered within [address] Forbes notified. New order received for 02 as needed with activity. RT notified. Patient sitting up in recliner. Denies pain after PRN pain medication. Dressing changed to left restoration. Independent in room with ambulating and toileting. Call light in reach.
--- NOTE | 2017-03-07 19:44 | NUR ---
Pt found sitting in his chair on RA, SPO2 95%, HR 85, RR 14 and non labored with clear BS. Brovana given via SVN, followed by Chavez and Morgan.
[2017-03-07 20:18] VITALS: BP 105/62
[2017-03-07] MEDS: MIRTAZAPINE 15 MG (REMERON) TABLET PO SCH (20:18)
--- NOTE | 2017-03-07 22:30 | NUR ---
Patient requesting IV to be taken out. Okay'd by Dr. Forbes. IV DC'd with catheter intact, no redness or swelling noted. No needs at this time. Will continue to monitor.
[2017-03-07] MEDS: oxycODONE/ACETAMINOPHEN 10MG-325 MG (PERCOCET-10) TABLET PO PRN (22:40)
[2017-03-08] MEDS: oxyCODONE IMMEDIATE RELEASE 5 MG (OXYIR) TAB PO PRN (00:22)
[2017-03-08] MEDS: HOME MEDICATION PO SCH (05:12)
[2017-03-08] MEDS: PANTOPRAZOLE 40 MG (PROTONIX) TAB PO SCH (06:47)
[2017-03-08 08:00] VITALS: BP 120/52
[2017-03-08] MEDS: oxycODONE/ACETAMINOPHEN 10MG-325 MG (PERCOCET-10) TABLET PO PRN ×4 (08:55→22:13)
--- NOTE | 2017-03-08 08:55 | NUR ---
PRN Percocet given at this time for c/o general discomfort. Pt denies other needs.
[2017-03-08] MEDS: POLYETHYLENE GLYCOL 17 GM (MIRALAX) PACKET PO SCH (08:57)
[2017-03-08] MEDS: predniSONE 20 MG (DELTASONE) TABLET PO SCH (08:58)
[2017-03-08] MEDS: MIDODRINE 5 MG PO SCH ×3 (08:58→18:03)
[2017-03-08] MEDS: AZITHROMYCIN 250 MG TAB (ZITHROMAX) PO SCH (08:58)
[2017-03-08] MEDS: CEFDINIR 300 MG (OMNICEF) CAPSULE PO SCH ×2 (08:58→20:41)
[2017-03-08] MEDS: FUROSEMIDE 20 MG (LASIX) TAB PO SCH (08:58)
[2017-03-08] MEDS: CALCIUM CARBONATE 500 MG + VITAMIN D 200 IU TABLET PO SCH ×2 (08:58→20:41)
[2017-03-08] MEDS: BRIMONIDINE 0.2% OU SCH (09:00)
[2017-03-08] MEDS: BRINZOLAMIDE 1% OU SCH (09:00)
[2017-03-08] MEDS: NYSTATIN ORAL SUSPENSION 5 ML UDC PO SCH ×2 (09:00→20:42)
[2017-03-08] MEDS: ENOXAPARIN 40 MG/0.4 ML (LOVENOX) SYR SC SCH (09:06)
[2017-03-08] MEDS: ARFORMOTEROL NEB SOLUTION (BROVANA) 15 MCG/2 ML VIAL IH SCH ×2 (09:17→20:03)
[2017-03-08] MEDS: BUDESONIDE NEBS 0.25 MG/2 ML (PULMICORT) AMP INH SCH ×2 (09:17→20:03)
[2017-03-08] MEDS: IPRATROPIUM 0.02% NEB SOLN 0.5 MG/2.5 ML (ATROVENT) INH SCH ×2 (09:17→20:03)
[2017-03-08] MEDS: TAMSULOSIN 0.4 MG (FLOMAX) CAP PO SCH (10:51)
--- NOTE | 2017-03-08 12:11 | PT Daily Note Inpatient (E) ---
PT Daily Treatment Service Date/Time 03/08/17, 12:04 Medical Diagnosis: (1) Community acquired pneumonia ICD Code: J18.9 (2) Acute respiratory distress ICD Code: J80 (3) Physical deconditioning ICD Code: R53.81 Physical Therapy: (1) Hypoxia ICD Code: R09.02 (2) Physical deconditioning ICD Code: R53.81 (3) Fatigue (4) Weakness ICD Code: R53.1 (5) Acute respiratory distress ICD Code: J80 (6) Community acquired pneumonia ICD Code: J18.9 Precaution/Isolation: Standard Precautions Fall Level: Low Risk 25-50 Subjective Pt sitting up in recliner watching TV and agrees to therapy. Oxygen Delivery: Room air O2 liters/minute: 0 Treatments Sit, Stand, Supine: Sitting, Long Sitting Extremity: Both Lower Extremity Assistance: AROM Repetition: 1 x 10 Exercise: AP, QS, Heel Slides, Hip Abduction, SLR, LAQ, Hip Flexion Transfers Sit-Stand from bed: Supervision or setup (from recliner) Stand-Sit: Contact Guard Assist Gait Ambulation: Contact Guard Assist Distance Walked: 180 feet Assistive Device: FWW Gait Description: Normal:No Sig. Deviation Gait Training: Limitations: Fatigue Pt walked on room air. O2 sat dropped to 85% but recovered to 92% after short rest break and pursed lip breathing. Education/Plan Assessment Pt tolerated exercise fairly well but fatigued quickly. Plan Patient will be seen: Daily Monday-Monday Coding Time In: 11:55 Time Out: 12:10 Total Minutes: 15 Charges: 94956 Exercise Therp 15 m (15 minutes) John Schumacher PTA March 08, 2017 12:11
--- NOTE | 2017-03-08 14:00 | NUR ---
PRN Percocet given at this time for c/o flank pain rated 4/10 after working with OT. Hot chocolate provided per pt request. Denies other needs.
--- NOTE | 2017-03-08 14:03 | OT Daily Note Inpatient (E) ---
OT Daily Treatment Service Date/Time 03/08/17, 13:55 Primary Diagnosis: (1) Community acquired pneumonia ICD Code: J18.9 (2) Acute respiratory distress ICD Code: J80 (3) Physical deconditioning ICD Code: R53.81 Treatment Diagnosis: (1) Weakness ICD Code: R53.1 Onset Date: 02/28/17 Start of Care Date: March 07, 2017 Precaution/Isolation: Standard Precautions Fall Level: Low Risk 25-50 General Informantion 02 upon arrival 89% but shon to 95% with deep breathing Pt states his ribs are starting to hurt with ther ex Pain Level: 4 Oxygen Needed: Room air O2 liters/minute: 0 Current Function Assessment Mental Status Mental Status: Alert Cognition Attention: Intact Memory: Intact Safety/Judgement: Intact Visual/Perceptual Skills Glassess: Yes Hearing: Impaired Hand Dominance Hand Dominance: Right Endurance Activity Endurance: Becomes SOB, Deep breathing, Fair, Instructions provided, Needs energy saving techn Bed Mobility/Transfers Sit to Stand: SBA Chair Transfer: SBA Sitting Balance: WFL Dressing Dressing: Independent (02 89% 40 second recover) Bathing Bathing Assistive Device: Bath bench, Long handle sponge Shower/Bench Transfer Ability: Setup/SBA (02 92% after functional mobility and performing transfer) Pt education for energy conservation in shower, tub transfers with bath tub bench and using long handle sponge for washing feet to conserve energy. Toileting Clothing Paulie-Pants Down : Clothing Management-Pants Down: Independent Clothing Paulie-Pants Up : Clothing Management-Pants Up: Independent Treatments Strengthening Exercise Upper Extremity Strength Exerc : Upper Extremity: Bilateral Repetitions: 10 X 2 Amount of Resistance: Red (PRE to increase strength and activity tolerance for ADLs. Educated in HEP 02 94%) Education/Assessment Education Provided: Energy conservation, Home management/safety Education Evalution: Demonstrate understanding Readiness to Learn: Excellent Treatment Tolerance: [place] trmnt w/o complaints Problems Impacting Treatment: Deconditioning Rehabilitation Potential: Good POC Plan of Care Problems Identified: Activity Tolerance, ADLs, Balance, Lt UE Strength, Rt UE Strength, Safety Awareness Plan: Evaluation-OT, ADL/Self Care Management, Therapy Exercises, Therapy Activities, Pt/Family/Staff Education Frequency of OT: Five times weekly Duration of OT: 2 weeks Therapy to Include: ADL training, Balance with ADLs, Pt/family education, Therapeutic activities, UE strengthing Discharge Recommendations: Caregiver support Pt. Aware of Dx and Prognosis: Yes Pt. Aware of Risk & Benefit: Yes Goals: Discussed with patient Short Term Goals STG Time Frame: 5 Days Will Dress Upper Extremity: With Setup/SBA (met) Will do Bathing: With Setup/SBA Will do Toileting: With Setup/SBA Will Perform Funct Transfer: With Setup/SBA (met) STG #1 metPt will participate in 15 min of ther-ex with use of energy conservation techniques as needed. STG #2 Pt will complete grooming tasks with SBA. Large Engine Assembler Goals LTG Time Frame: 2 Weeks Will Dress Upper Extremity: Independently Will Dress Lower Extremity: With Min Assistance Will do Tub/Shower Transfer: Independently Will Bathe Self: Independently Will do Toilet Transfers: Independently Will do Toilieting: Independently Will Perform Kitchen Mobility: Independently LTG # 1 Pt will demonstrate ability to apply deep breathing techniques with independence during self care tasks and exercises to ease shortness of breath and improve performance. CPT/G Codes Time In: 1301 Time Out: 1347 Total Minutes: 46 CPT Codes: 23371 Exercise Ther (20), 97037 ADL EA (25) Genna Uriostegui March 08, 2017 14:03
--- NOTE | 2017-03-08 14:58 | PT Daily Note Inpatient (E) ---
PT Daily Treatment Service Date/Time 03/08/17, 14:52 Medical Diagnosis: (1) Community acquired pneumonia ICD Code: J18.9 (2) Acute respiratory distress ICD Code: J80 (3) Physical deconditioning ICD Code: R53.81 Physical Therapy: (1) Hypoxia ICD Code: R09.02 (2) Physical deconditioning ICD Code: R53.81 (3) Fatigue (4) Weakness ICD Code: R53.1 (5) Acute respiratory distress ICD Code: J80 (6) Community acquired pneumonia ICD Code: J18.9 Precaution/Isolation: Standard Precautions Fall Level: Low Risk 25-50 Subjective Pt reports that he had OT earlier. Agrees to walk. Too tired for anymore exercises. Oxygen Delivery: Room air O2 liters/minute: 0 Transfers Stand-Sit: Complete [place] Gait Distance Walked: 180 feet on 1 liter O2. O2 sat maintained at 95%. Gait Description: Normal:No Sig. Deviation Education/Plan Plan Patient will be seen: Daily Monday-Monday Coding Time In: 2:45 Time Out: 2:52 Total Minutes: 7 Charges: 52148 Exercise Therp 15 John Lopez TRAILER MECHANIC March 08, 2017 14:58
--- NOTE | 2017-03-08 18:00 | NUR ---
PRN Percocet given at this time for c/o lower back pain rated 4/10. Pt denies other needs. Skin warm, dry, intact. Resprs nonlabored, even on RA. Call light within reach.
[2017-03-08 20:00] VITALS: BP 111/59
[2017-03-08] MEDS: MIRTAZAPINE 15 MG (REMERON) TABLET PO SCH (20:41)
[2017-03-09] MEDS: oxycODONE/ACETAMINOPHEN 10MG-325 MG (PERCOCET-10) TABLET PO PRN ×5 (02:05→20:01)
[2017-03-09] MEDS: HOME MEDICATION PO SCH (05:57)
[2017-03-09] MEDS: PANTOPRAZOLE 40 MG (PROTONIX) TAB PO SCH (05:57)
--- NOTE | 2017-03-09 06:04 | NUR ---
Uneventful shift. PRN percocet provided for pain. Cont on RA. Calls for assist as needed.
[2017-03-09 06:24] LABS: ALBUMIN 2.7 g/dL (3.4-5.0); ANION GAP 10.3 MEQ/L (3-15); MAGNESIUM* 2.4 mg/dL (1.6-2.3)
[2017-03-09] MEDS: BUDESONIDE NEBS 0.25 MG/2 ML (PULMICORT) AMP INH SCH ×2 (07:42→21:05)
[2017-03-09] MEDS: ARFORMOTEROL NEB SOLUTION (BROVANA) 15 MCG/2 ML VIAL IH SCH ×2 (07:42→21:05)
[2017-03-09] MEDS: IPRATROPIUM 0.02% NEB SOLN 0.5 MG/2.5 ML (ATROVENT) INH SCH ×2 (07:42→21:05)
[2017-03-09 07:46] VITALS: BP 133/61
--- NOTE | 2017-03-09 07:50 | NUR ---
SpO2 92% on room air with patient up in chair. BS Clear.
[2017-03-09] MEDS: POLYETHYLENE GLYCOL 17 GM (MIRALAX) PACKET PO SCH (08:57)
[2017-03-09] MEDS: predniSONE 20 MG (DELTASONE) TABLET PO SCH (08:58)
[2017-03-09] MEDS: AZITHROMYCIN 250 MG TAB (ZITHROMAX) PO SCH (08:59)
[2017-03-09] MEDS: MIDODRINE 5 MG PO SCH ×3 (08:59→17:15)
[2017-03-09] MEDS: CALCIUM CARBONATE 500 MG + VITAMIN D 200 IU TABLET PO SCH ×2 (08:59→21:35)
[2017-03-09] MEDS: FUROSEMIDE 20 MG (LASIX) TAB PO SCH (08:59)
[2017-03-09] MEDS: NYSTATIN ORAL SUSPENSION 5 ML UDC PO SCH ×2 (08:59→21:00)
[2017-03-09] MEDS: CEFDINIR 300 MG (OMNICEF) CAPSULE PO SCH ×2 (08:59→21:35)
[2017-03-09] MEDS: ENOXAPARIN 40 MG/0.4 ML (LOVENOX) SYR SC SCH (09:00)
[2017-03-09] MEDS: BRIMONIDINE 0.2% OU SCH (09:01)
[2017-03-09] MEDS: BRINZOLAMIDE 1% OU SCH (09:13)
--- NOTE | 2017-03-09 09:43 | PT Daily Note Inpatient (E) ---
PT Daily Treatment Service Date/Time 03/09/17, 09:40 Medical Diagnosis: (1) Community acquired pneumonia ICD Code: J18.9 (2) Acute respiratory distress ICD Code: J80 (3) Physical deconditioning ICD Code: R53.81 Physical Therapy: (1) Hypoxia ICD Code: R09.02 (2) Physical deconditioning ICD Code: R53.81 (3) Fatigue (4) Weakness ICD Code: R53.1 (5) Acute respiratory distress ICD Code: J80 (6) Community acquired pneumonia ICD Code: J18.9 Precaution/Isolation: Standard Precautions Fall Level: Low Risk 25-50 Subjective pt reports he is very tired and would like to be left alone for a couple of hours, pt did agree to a short PT treatment at this time Pain Level: 0 Oxygen Delivery: Room air O2 liters/minute: 0 Treatments Sit, Stand, Supine: Sitting Extremity: Both Lower Extremity Assistance: AROM Repetition: 1 x 15 Exercise: LAQ, Hip Flexion Transfers Sit-Stand from bed: Complete [place] Stand-Sit: Complete [place] Gait Ambulation: Modified [place] Distance Walked: 200' Weight Bearing Status: Full Assistive Device: FWW Gait Assist: Supervision Required Gait Description: Normal:No Sig. Deviation, Flexed Trunk Gait Training: Limitations: Fatigue Education/Plan Assessment Fatigued after gait, strength improving, transfers independently with safety Safety Awareness: Intact Response to Treatment: Improving Plan Cont POC Patient will be seen: Daily Monday-Monday Discharge Recommendations: Caregiver support Coding Time In: 919 Time Out: 934 Total Minutes: 15 Charges: 62060 Exercise Therp TIARA Kimball PTA March 09, 2017 09:43
--- NOTE | 2017-03-09 10:36 | NUR ---
Daughter has been in to see patient. Pt ate breakfast and took AM meds without difficulty. Indep. with eye drops. Dressing changed to left taoist- c/d/i. No redness/swelling or drainage from incision. pt tolerated with minimal c/o.
[2017-03-09] MEDS: TAMSULOSIN 0.4 MG (FLOMAX) CAP PO SCH (10:46)
--- NOTE | 2017-03-09 14:43 | NUR ---
Percocet given as ordered for c/o chronic back pain rated 7/10. Working with Ketan CONNORS and Dian RUTHERFORD.
--- NOTE | 2017-03-09 15:24 | PT Daily Note Inpatient (E) ---
PT Daily Treatment Service Date/Time 03/09/17, 15:11 Medical Diagnosis: (1) Community acquired pneumonia ICD Code: J18.9 (2) Acute respiratory distress ICD Code: J80 (3) Physical deconditioning ICD Code: R53.81 Physical Therapy: (1) Hypoxia ICD Code: R09.02 (2) Physical deconditioning ICD Code: R53.81 (3) Fatigue (4) Weakness ICD Code: R53.1 (5) Acute respiratory distress ICD Code: J80 (6) Community acquired pneumonia ICD Code: J18.9 Precaution/Isolation: Standard Precautions Fall Level: Low Risk 25-50 Subjective The patient was participating in OT when PT arrived and was agreeable to working with both disciplines to work on higher level balance. Oxygen Delivery: Room air O2 liters/minute: 0 Gait Ambulation: Contact Guard Assist The patient stood for 5 minutes 26 seconds, 3 minutes 29 seconds working on reaching and stepping outside of base of support. Co treatment with OT with PT providing guarding to prevent fall and assessing weight shifting. Education/Plan Education Patient with mild 02 desaturation improving to 90% within 10 seconds, HR mildly over 100 bpm. Assessment Patient fatigued but demonstrated good lateral and fwd/bwd shifting. Plan Continue to progress activity tolerance and ambulation without AD. Patient will be seen: Daily Monday-Monday Discharge Recommendations: Caregiver support Coding Time In: 1433 Time Out: 1458 Total Minutes: 15 Charges: 00304 Neurmus Exer 15 min MARYA TIERNEY PT March 09, 2017 15:24
--- NOTE | 2017-03-09 15:29 | NUR ---
MULTIDISCIPLINARY MTG/DR. HAHN: Pt. admitted for skilled care for deconditioning. His respiratory distress is improving although he does have some subjective dyspnea on exertion. His pneumonia is resolving. His leg edema is improving. Pt. has been working well with PT/OT. They will start working without an assistive device with Pt. Pt. will have a week or longer stay. No discharge needs identified at this time.
--- NOTE | 2017-03-09 16:31 | NUR ---
Medication review was performed. Appropriate use of medications for [facility] patient assessed and note provided to physician indicating that medications currently are appropriate for patients status. Using patients home Zytiga 1000mg daily for his cancer. Medication unavailable to us and being used from patient supply in order to ensure appropriate and necessary therapy is continued during skilled status.
[2017-03-09] MEDS: fentaNYL PATCH 75 MCG (DURAGESIC) TD SCH (17:13)
[2017-03-09] MEDS: PATCH REMOVAL TOP SCH (17:15)
--- NOTE | 2017-03-09 17:35 | OT Daily Note Inpatient (E) ---
OT Daily Treatment Service Date/Time 03/09/17, 17:35 Primary Diagnosis: (1) Community acquired pneumonia ICD Code: J18.9 (2) Acute respiratory distress ICD Code: J80 (3) Physical deconditioning ICD Code: R53.81 Treatment Diagnosis: (1) Weakness ICD Code: R53.1 Onset Date: 02/28/17 Start of Care Date: March 07, 2017 Precaution/Isolation: Standard Precautions Fall Level: Low Risk 25-50 Current Activity: Agrees to participate Pt reports he is feeling better and feeling more comfortable about going home. Pain Location/Comment Starting to get a little bit of pain in lower back. Oxygen Needed: Room air O2 liters/minute: 0 Current Function Assessment Cognition Attention: Intact Memory: Intact Safety/Judgement: Intact Visual/Perceptual Skills Glassess: Yes Hearing: Impaired Hand Dominance Hand Dominance: Right Treatments Gross Motor Skill Exercise U E Gross Motor Skills U E : Comment Pt participated in therapeutic activity co-treating with physical therapy to work on higher level balance activities while reaching out of midline for various objects provided by therapist to improve ease and safety with simple IADL tasks. Use of contrast with gloves and objects to increase pt's ease of seeing objects. In standing, pt able to reach out for objects of PNF diagonals and various planes with no noted LOB. Pt able to step out and reach for objects provided by therapist with demonstration of good balance and BUE movement. Able to stand for 5 1/2 minutes with therapeutic rest break in between and use of deep breathing and then for 3 1/2 minutes. Strengthening Exercise Upper Extremity Strength Exerc : Comment In sitting, pt participated in BUE strengthening exercises with use of green theraband. Pt completed 8 x 15 exercises with good demonstration of deep breathing during exercises. Able to complete exercises with proper technique and therapeutic rest break in between sets. Education/Assessment Education Provided: Energy conservation, Home management/safety Education Evalution: Demonstrate understanding Readiness to Learn: Excellent Treatment Tolerance: [place] trmnt w/o complaints Problems Impacting Treatment: Deconditioning Rehabilitation Potential: Good Good demonstration of deep breathing during exercises and self care tasks. No noted LOB with higher level balance activities. POC Plan of Care Problems Identified: Activity Tolerance, ADLs, Balance, Lt UE Strength, Rt UE Strength, Safety Awareness Plan: Evaluation-OT, ADL/Self Care Management, Therapy Exercises, Therapy Activities, Pt/Family/Staff Education Frequency of OT: Five times weekly Duration of OT: 2 weeks Therapy to Include: ADL training, Balance with ADLs, Pt/family education, Therapeutic activities, UE strengthing Discharge Recommendations: Caregiver support Pt. Aware of Dx and Prognosis: Yes Pt. Aware of Risk & Benefit: Yes Goals: Discussed with patient Short Term Goals STG Time Frame: 5 Days Will Dress Upper Extremity: With Setup/SBA (met) Will do Bathing: With Setup/SBA Will do Toileting: With Setup/SBA Will Perform Funct Transfer: With Setup/SBA (met) STG #1 Pt will participate in 15 min of ther-ex with use of energy conservation techniques as needed. GOAL MET. STG #2 Pt will complete grooming tasks with SBA. Mcfp Goals LTG Time Frame: 2 Weeks Will Dress Upper Extremity: Independently Will Dress Lower Extremity: With Min Assistance Will do Tub/Shower Transfer: Independently Will Bathe Self: Independently Will do Toilet Transfers: Independently Will do Toilieting: Independently Will Perform Kitchen Mobility: Independently LTG # 1 Pt will demonstrate ability to apply deep breathing techniques with independence during self care tasks and exercises to ease shortness of breath and improve performance. GOAL MET. CPT/G Codes Time In: 14:17 Time Out: 14:54 Total Minutes: 37 (11/13 TA, 11/20 TE) MARCO ANTONIO COREA OT March 09, 2017 17:35
--- NOTE | 2017-03-09 18:18 | NUR ---
Pt sitting in chair awaiting supper meal. daughter and other family members at bedside.
--- NOTE | 2017-03-09 20:00 | NUR ---
Patient in recliner. Alert and oriented. Daughter in room. Low back pain at 4/10. Will provide pain med and warm blanket. Reports increased strength. Walks independently. Lungs CTA throughout. HR reg. BS hypo active at this time. TG shapes on and patient tolerating well. 2+ pitting edema. Denies needs.
--- NOTE | 2017-03-09 20:01 | NUR ---
Had get together with family in family room. Now back in room and Percocet given for low back pain 02/06.
[2017-03-09 20:32] VITALS: BP 122/62
[2017-03-09] MEDS: MIRTAZAPINE 15 MG (REMERON) TABLET PO SCH (21:58)
[2017-03-10] MEDS: oxycODONE/ACETAMINOPHEN 10MG-325 MG (PERCOCET-10) TABLET PO PRN ×3 (00:15→13:34)
--- NOTE | 2017-03-10 00:15 | NUR ---
Patient requested at that I wake him at midnight to give him pain medication so that he can stay on top of the pain. Awakened at this time. Patient sits up to take medication. Denies any pain at this time.
[2017-03-10] MEDS: HOME MEDICATION PO SCH (05:16)
--- NOTE | 2017-03-10 05:21 | NUR ---
Took pain medication on a regular basis every 4-5 hrs on this shift which has kept pain at a tolerable level and patient has been able to rest/sleep well this past night. Patient's only complaint has been his chronic back pain.
[2017-03-10] MEDS: PANTOPRAZOLE 40 MG (PROTONIX) TAB PO SCH (07:10)
[2017-03-10 07:41] VITALS: BP 161/80
[2017-03-10] MEDS: ARFORMOTEROL NEB SOLUTION (BROVANA) 15 MCG/2 ML VIAL IH SCH ×2 (07:42→19:57)
[2017-03-10] MEDS: BUDESONIDE NEBS 0.25 MG/2 ML (PULMICORT) AMP INH SCH ×2 (07:43→19:57)
[2017-03-10] MEDS: IPRATROPIUM 0.02% NEB SOLN 0.5 MG/2.5 ML (ATROVENT) INH SCH ×2 (07:43→19:57)
--- NOTE | 2017-03-10 07:49 | NUR ---
SpO2 97% on Room Air sitting up in chair. BS Clear.
--- NOTE | 2017-03-10 08:30 | NUR ---
Nohemi held this am for BP of 160/81.
[2017-03-10] MEDS: BRINZOLAMIDE 1% OU SCH (08:42)
[2017-03-10] MEDS: BRIMONIDINE 0.2% OU SCH (08:43)
[2017-03-10] MEDS: POLYETHYLENE GLYCOL 17 GM (MIRALAX) PACKET PO SCH (08:43)
[2017-03-10] MEDS: AZITHROMYCIN 250 MG TAB (ZITHROMAX) PO SCH (08:44)
[2017-03-10] MEDS: ENOXAPARIN 40 MG/0.4 ML (LOVENOX) SYR SC SCH (08:44)
[2017-03-10] MEDS: NYSTATIN ORAL SUSPENSION 5 ML UDC PO SCH ×2 (08:44→21:00)
[2017-03-10] MEDS: FUROSEMIDE 20 MG (LASIX) TAB PO SCH (08:44)
[2017-03-10] MEDS: MIDODRINE 5 MG PO SCH (08:44)
[2017-03-10] MEDS: CALCIUM CARBONATE 500 MG + VITAMIN D 200 IU TABLET PO SCH ×2 (08:44→21:17)
[2017-03-10] MEDS: predniSONE 20 MG (DELTASONE) TABLET PO SCH (08:44)
[2017-03-10] MEDS: TAMSULOSIN 0.4 MG (FLOMAX) CAP PO SCH (09:57)
--- NOTE | 2017-03-10 10:05 | Progress Note (E) ---
Progress Note Vital Signs Date Time Temp Pulse Resp B/P Pulse Ox O2 Delivery O2 Flow Rate FiO2 03/10/17 07:41 96.9 93 18 161/80 95 Room air Rise in BP noted. He was asymptomatic but discussed holding midodrine for now and monitoring. This was started because of low BP prior to this admit but he had been quite stable for the last few days until spike this AM. Continue to monitor BP. CHET HAHN MD March 10, 2017 10:05
--- NOTE | 2017-03-10 13:08 | PT Daily Note Inpatient (E) ---
PT Daily Treatment Service Date/Time 03/10/17, 12:57 Medical Diagnosis: (1) Community acquired pneumonia ICD Code: J18.9 (2) Acute respiratory distress ICD Code: J80 (3) Physical deconditioning ICD Code: R53.81 Physical Therapy: (1) Hypoxia ICD Code: R09.02 (2) Physical deconditioning ICD Code: R53.81 (3) Fatigue (4) Weakness ICD Code: R53.1 (5) Acute respiratory distress ICD Code: J80 (6) Community acquired pneumonia ICD Code: J18.9 Precaution/Isolation: Standard Precautions Fall Level: Low Risk 25-50 Subjective Patient resting in chair first thing this AM and requested we check back later. Patient was agreeable and fully awake when we checked back later in the day. Patient noted having high blood pressure this AM. Oxygen Delivery: Room air O2 liters/minute: 0 Treatments Sit, Stand, Supine: Sitting Extremity: Both Lower Extremity Repetition: 2 x 10 Resistance: Green Band Exercise: Hip Abduction, LAQ Comment Knee flexion RROM Transfers Rolling: Not Assessed/NA Sit-Supine: Not Assessed/NA Sitting Edge of Bed: Complete [place] Sit-Stand from bed: Supervision or setup Stand-Sit: Supervision or setup Gait Ambulation: Contact Guard Assist Distance Walked: 300 feet with 02 saturation 92%, HR 100 bpm. Weight Bearing Status: Full Assistive Device: None Gait Assist: Min Assist/Contact Guard Gait Training: Limitations: Fatigue Education/Plan Education Educated patient we would work with him tomorrow morning. Assessment Significant improvement in activity tolerance and balance. Plan Progress strengthening and activity tolerance exercises as patient tolerates. Patient will be seen: Daily Monday-Monday Discharge Recommendations: Caregiver support Coding Time In: 1214 Time Out: 1232 Total Minutes: 18 Charges: 91275 Exercise Therp 15 m MARYA TIERNEY PT March 10, 2017 13:08
[2017-03-10 14:51] VITALS: BP 103/57
--- NOTE | 2017-03-10 16:03 | NUR ---
BP at this time = 103/57. Patient reports mild hearing loss. Otoscope used to examine ears. Large amount of wax in canal. Dr. Forbes notified and orders Debrox drops to be given at 2100 and 0900 and then ears will be cleaned out. Call light in reach.
--- NOTE | 2017-03-10 17:34 | OT Daily Note Inpatient (E) ---
OT Daily Treatment Service Date/Time 03/10/17, 17:34 Primary Diagnosis: (1) Community acquired pneumonia ICD Code: J18.9 (2) Acute respiratory distress ICD Code: J80 (3) Physical deconditioning ICD Code: R53.81 Treatment Diagnosis: (1) Weakness ICD Code: R53.1 Onset Date: 02/28/17 Start of Care Date: March 07, 2017 Precaution/Isolation: Standard Precautions Fall Level: Low Risk 25-50 Current Activity: Agrees to participate Pt reports he was just getting ready to take a nap. Agreeable to therapy. Pain Level: 0 Oxygen Needed: Room air O2 liters/minute: 0 Current Function Assessment Cognition Attention: Intact Memory: Intact Safety/Judgement: Intact Visual/Perceptual Skills Glassess: Yes Hearing: Impaired Hand Dominance Hand Dominance: Right Endurance Pt participated in functional mobility task this date. Pt able to ambulate 100 feet with SBA. Therapeutic rest break with therapist assessing pt's O2, with it being 95. Completed functional mobility back to room. Treatments Strengthening Exercise Upper Extremity Strength Exerc : Comment Provided pt with [facility]ULI[facility] HEP with handout and pictures to complete at home. Pt complete 20 of each exercise with use of green theraband to ensure proper technique. Completed 4 x 20. Educated and discussed completing 10-15 at home with deep breathing during exercises. Noted- pt demonstrates good breathing during exercises with no cueing needed. Education/Assessment Education Provided: Energy conservation (Use of deep breathing techniques to ease shortness of breath. ), Home management/safety (Provided education to pt on strategies to help with low vision including reducing glare, improving light , reducing clutter and use of contrast. Pt verbalized understanding. Discussed use of long handled sponge for home use. Pt reports he does not think it will work. Provided pt with information of a shower step stool to position feet on when washing. Pt reports he thinks he would really like that. ) Education Evalution: Demonstrate understanding Readiness to Learn: Excellent Treatment Tolerance: [place] trmnt w/o complaints Problems Impacting Treatment: Deconditioning Rehabilitation Potential: Good Pt demonstrates good safety awareness with functional mobility. Able to apply deep breathing techniques with independence. POC Plan of Care Problems Identified: Activity Tolerance, ADLs, Balance, Lt UE Strength, Rt UE Strength, Safety Awareness Plan: Evaluation-OT, ADL/Self Care Management, Therapy Exercises, Therapy Activities, Pt/Family/Staff Education Frequency of OT: Five times weekly Duration of OT: 2 weeks Therapy to Include: ADL training, Balance with ADLs, Pt/family education, Therapeutic activities, UE strengthing Discharge Recommendations: Caregiver support Pt. Aware of Dx and Prognosis: Yes Pt. Aware of Risk & Benefit: Yes Goals: Discussed with patient Short Term Goals STG Time Frame: 5 Days Will Dress Upper Extremity: With Setup/SBA (met) Will do Bathing: With Setup/SBA Will do Toileting: With Setup/SBA Will Perform Funct Transfer: With Setup/SBA (met) STG #1 Pt will participate in 15 min of ther-ex with use of energy conservation techniques as needed. GOAL MET. STG #2 Pt will complete grooming tasks with SBA. Jail Goals LTG Time Frame: 2 Weeks Will Dress Upper Extremity: Independently Will Dress Lower Extremity: With Min Assistance Will do Tub/Shower Transfer: Independently Will Bathe Self: Independently Will do Toilet Transfers: Independently (GOAL MET.) Will do Toilieting: Independently (GOAL MET.) Will Perform Kitchen Mobility: Independently LTG # 1 Pt will demonstrate ability to apply deep breathing techniques with independence during self care tasks and exercises to ease shortness of breath and improve performance. GOAL MET. CPT/G Codes Time In: 14:14 Time Out: 14:49 Total Minutes: 35 (11/13 TE, 11/18 ADL) MARCO ANTONIO COREA OT March 10, 2017 17:34
[2017-03-10 19:33] VITALS: BP 108/54
--- NOTE | 2017-03-10 20:00 | NUR ---
Pt found sitting in his chair, SPO2 95% on RA, HR 87, RR 16 with clear BS. Brovana given via SVN, followed by Atrovent and Pulmicort. Both Tx tolerated well. BS clear post Txs.
[2017-03-10] MEDS: oxyCODONE IMMEDIATE RELEASE 5 MG (OXYIR) TAB PO PRN (21:17)
[2017-03-10] MEDS: MIRTAZAPINE 15 MG (REMERON) TABLET PO SCH (21:18)
[2017-03-10] MEDS: CARBAM PEROX/GLYC/PROP 15 ML DROPS (DEBROX) EACH EAR SCH (21:18)
[2017-03-10] MEDS: LORazepam 0.5 MG (ATIVAN) TABLET PO PRN (21:25)
[2017-03-11] MEDS: HOME MEDICATION PO SCH (05:10)
[2017-03-11] MEDS: oxyCODONE IMMEDIATE RELEASE 5 MG (OXYIR) TAB PO PRN ×3 (05:10→22:48)
[2017-03-11] MEDS: PANTOPRAZOLE 40 MG (PROTONIX) TAB PO SCH (06:23)
--- NOTE | 2017-03-11 06:33 | NUR ---
Patient rests in bed throughout night without needs. OxyIR given per request. No complaints at this time.
[2017-03-11] MEDS: predniSONE 20 MG (DELTASONE) TABLET PO SCH (08:00)
[2017-03-11 08:16] VITALS: BP 100/47
[2017-03-11] MEDS: ENOXAPARIN 40 MG/0.4 ML (LOVENOX) SYR SC SCH (09:00)
[2017-03-11] MEDS: NYSTATIN ORAL SUSPENSION 5 ML UDC PO SCH ×2 (09:00→21:00)
[2017-03-11] MEDS: BRINZOLAMIDE 1% OU SCH (09:00)
[2017-03-11] MEDS: TAMSULOSIN 0.4 MG (FLOMAX) CAP PO SCH (09:15)
[2017-03-11] MEDS: CALCIUM CARBONATE 500 MG + VITAMIN D 200 IU TABLET PO SCH ×2 (09:15→21:23)
[2017-03-11] MEDS: CARBAM PEROX/GLYC/PROP 15 ML DROPS (DEBROX) EACH EAR SCH ×2 (09:15→21:23)
[2017-03-11] MEDS: POLYETHYLENE GLYCOL 17 GM (MIRALAX) PACKET PO SCH (09:15)
[2017-03-11] MEDS: AZITHROMYCIN 250 MG TAB (ZITHROMAX) PO SCH (09:15)
[2017-03-11] MEDS: FUROSEMIDE 20 MG (LASIX) TAB PO SCH (09:15)
[2017-03-11] MEDS: BRIMONIDINE 0.2% OU SCH (09:16)
[2017-03-11] MEDS: oxycODONE/ACETAMINOPHEN 10MG-325 MG (PERCOCET-10) TABLET PO PRN (09:28)
[2017-03-11] MEDS: IPRATROPIUM 0.02% NEB SOLN 0.5 MG/2.5 ML (ATROVENT) INH SCH ×2 (10:19→21:28)
[2017-03-11] MEDS: BUDESONIDE NEBS 0.25 MG/2 ML (PULMICORT) AMP INH SCH ×2 (10:19→21:28)
[2017-03-11] MEDS: ARFORMOTEROL NEB SOLUTION (BROVANA) 15 MCG/2 ML VIAL IH SCH ×2 (10:19→21:27)
--- NOTE | 2017-03-11 12:29 | PT Daily Note Inpatient (E) ---
PT Daily Treatment Service Date/Time 03/11/17, 12:23 Medical Diagnosis: (1) Community acquired pneumonia ICD Code: J18.9 (2) Acute respiratory distress ICD Code: J80 (3) Physical deconditioning ICD Code: R53.81 Physical Therapy: (1) Hypoxia ICD Code: R09.02 (2) Physical deconditioning ICD Code: R53.81 (3) Fatigue (4) Weakness ICD Code: R53.1 (5) Acute respiratory distress ICD Code: J80 (6) Community acquired pneumonia ICD Code: J18.9 Precaution/Isolation: Standard Precautions Fall Level: Low Risk 25-50 Subjective The patient is resting in recliner and willing to participate in therapy. Patient has some low back pain this date but denies the need to request a pain pill as he had one earlier this date. Oxygen Delivery: Room air O2 liters/minute: 0 Treatments Sit, Stand, Supine: Sitting Extremity: Both Lower Extremity Repetition: 2 x 10 Resistance: Green Band, Red Band Exercise: Hip Abduction, Other (knee flexion RROM 2 x10 ) Transfers Sitting Edge of Bed: Modified [place] Sit-Stand from bed: Modified [place] Stand-Sit: Modified [place] Gait Ambulation: Supervision or setup Distance Walked: 200 feet with one rest break, 50 feet, 100 feet, 160 feet Patient maintained 02 saturation over 92% throughout ambulation. He did not quadriceps mm fatigue and soreness with ambulation. Gait Assist: Supervision Required Gait Description: Unsteady Ambulated with head turns and scanning for signs along hallway. Patient traversed 3 steps with use of one hand rail with SBA. Education/Plan Education Educated patient on the progress he has made and from a PT stand point he is at functional level we feel he will be ready when he is medically ready to transition home. Assessment Patient continues to demonstrate improved strength, balance, and activity tolerance. Plan Plan to continue to work on strengthening in standing and work to transition patient to home. Patient will be seen: Daily Monday-Monday Discharge Recommendations: Caregiver support Coding Time In: 1118 Time Out: 1155 Total Minutes: 37 Charges: 04261 Exercise Therp 15 m, 88979 Gait Training 15 mi MARYA TIERNEY PT March 11, 2017 12:29
[2017-03-11] MEDS: LORazepam 0.5 MG (ATIVAN) TABLET PO PRN (17:40)
[2017-03-11] MEDS: MIRTAZAPINE 15 MG (REMERON) TABLET PO SCH (21:23)
--- NOTE | 2017-03-11 21:30 | NUR ---
Pt found sitting in his chair watching television on RA, SPO2 94%, HR 91, RR 16 and non labored. Brovana given via SVN, followed by Atrovent and Pulmicort. BS clear before and after Tx.
[2017-03-11 22:56] VITALS: BP 104/50
[2017-03-12] MEDS: PANTOPRAZOLE 40 MG (PROTONIX) TAB PO SCH (06:00)
[2017-03-12] MEDS: HOME MEDICATION PO SCH (06:00)
--- NOTE | 2017-03-12 06:19 | NUR ---
Patient rests in bed throughout night. Up independently in room, calls for all needs. Remains on room air. No needs at this time.
[2017-03-12 07:39] VITALS: BP 115/51
[2017-03-12] MEDS: predniSONE 20 MG (DELTASONE) TABLET PO SCH (07:50)
[2017-03-12] MEDS: oxyCODONE IMMEDIATE RELEASE 5 MG (OXYIR) TAB PO PRN ×2 (07:50→16:49)
--- NOTE | 2017-03-12 07:50 | NUR ---
Pt sitting in chair. Alert and oriented X3. Breathing equal and unlabored on room air. Pt requests pain medicine. Oxy Ir 10mg given and a warm blanket applied to back.
[2017-03-12] MEDS: POLYETHYLENE GLYCOL 17 GM (MIRALAX) PACKET PO SCH (09:37)
[2017-03-12] MEDS: FUROSEMIDE 20 MG (LASIX) TAB PO SCH (09:38)
[2017-03-12] MEDS: NYSTATIN ORAL SUSPENSION 5 ML UDC PO SCH ×2 (09:38→21:00)
[2017-03-12] MEDS: TAMSULOSIN 0.4 MG (FLOMAX) CAP PO SCH (09:39)
[2017-03-12] MEDS: ENOXAPARIN 40 MG/0.4 ML (LOVENOX) SYR SC SCH (09:39)
[2017-03-12] MEDS: AZITHROMYCIN 250 MG TAB (ZITHROMAX) PO SCH (09:39)
[2017-03-12] MEDS: CALCIUM CARBONATE 500 MG + VITAMIN D 200 IU TABLET PO SCH ×2 (09:40→21:42)
[2017-03-12] MEDS: BRINZOLAMIDE 1% OU SCH (09:41)
[2017-03-12] MEDS: BRIMONIDINE 0.2% OU SCH (09:43)
[2017-03-12] MEDS: BUDESONIDE NEBS 0.25 MG/2 ML (PULMICORT) AMP INH SCH ×2 (09:44→20:26)
[2017-03-12] MEDS: ARFORMOTEROL NEB SOLUTION (BROVANA) 15 MCG/2 ML VIAL IH SCH ×2 (09:44→20:26)
[2017-03-12] MEDS: IPRATROPIUM 0.02% NEB SOLN 0.5 MG/2.5 ML (ATROVENT) INH SCH ×2 (09:44→20:26)
[2017-03-12] MEDS: CARBAM PEROX/GLYC/PROP 15 ML DROPS (DEBROX) EACH EAR SCH ×2 (10:01→21:42)
--- NOTE | 2017-03-12 10:33 | NUR ---
Pt asleep in chair.
[2017-03-12 15:24] LABS: MEAN CORPUSCULAR HEMOGLOBIN 30.4 PG (26.0-34.0); MEAN CORPUSCULAR VOLUME 96 FL (80-100); MEAN PLATELET VOLUME 8.8 FL (6.0-9.5); PLATELET COUNT 341 10^3uL (150-450)
[2017-03-12 15:32] LABS: ALBUMIN 3.2 g/dL (3.4-5.0); ANION GAP 13.1 MEQ/L (3-15); CALCULATED IONIZED CALCIUM 3.9 mg/dL (3.8-4.6); TOTAL PROTEIN 6.1 g/dL (6.4-8.5)
[2017-03-12 15:50] LABS: MEAN CORPUSCULAR HGB CONC 31.7 g/dL (31.0-37.0)
[2017-03-12 15:54] LABS: BAND NEUTROPHILS % 6 % (0-6); EOSINOPHILS % 1 % (0-4); MONOCYTES # 0.6 #; MONOCYTES % 6 % (3-11); SEGMENTED NEUTROPHILS % 75 % (51-67); TOTAL CELLS COUNTED 100
[2017-03-12 15:55] LABS: RBC MORPH NORMAL (NORMAL)
[2017-03-12] MEDS: fentaNYL PATCH 75 MCG (DURAGESIC) TD SCH (16:42)
[2017-03-12] MEDS: PATCH REMOVAL TOP SCH (16:43)
--- NOTE | 2017-03-12 17:42 | Diagnostic Imaging Report ---
INDICATION: Pulmonary edema, metastatic cancer. COMPARISON: February 28, 2017. TECHNIQUE: Three radiographs of the chest were obtained dated March 12, 2017. FINDINGS: The cardiac silhouette is stable. No significant pulmonary vascular congestion. Background chronic obstructive pulmonary disease with associated pulmonary hyperinflation is again identified. Blunting of the bilateral costophrenic angles, increased on the right. Slightly increased density is identified within the right lung base when compared to the prior examination. Additional background of predominantly interstitial opacities appear similar to the prior examination. Extensive sclerosis of the osseous structures is again identified without acute osseous abnormality. IMPRESSION: 1. Developing right basilar atelectasis and/or pneumonitis with associated developing trace bibasilar pleural effusions. 2. Extensive sclerosis of the osseous structures, felt to relate to osseous metastatic disease. 3. Background chronic obstructive pulmonary disease. Dictated by: Dictated on workstation # [id number]
--- NOTE | 2017-03-12 18:16 | NUR ---
Pt sitting in chair. Rates his pain a 2 on the pain scale. Pt ate 100% of supper.
[2017-03-12 19:59] VITALS: BP 107/53
--- NOTE | 2017-03-12 20:28 | NUR ---
Pt found sitting in his chair watching television, SPO2 94% on RA, HR 91, RR 14 and non labored. BS clear before Brovana via SVN, followed by Pulmicort and Atrovent via SVN.
[2017-03-12] MEDS: MIRTAZAPINE 15 MG (REMERON) TABLET PO SCH (21:42)
[2017-03-13] MEDS: HOME MEDICATION PO SCH (05:09)
[2017-03-13] MEDS: oxyCODONE IMMEDIATE RELEASE 5 MG (OXYIR) TAB PO PRN ×2 (05:09→12:18)
[2017-03-13 06:11] LABS: MEAN CORPUSCULAR HEMOGLOBIN 30.6 PG (26.0-34.0); MEAN CORPUSCULAR VOLUME 96 FL (80-100); MEAN PLATELET VOLUME 8.9 FL (6.0-9.5); PLATELET COUNT 315 10^3uL (150-450); WHITE BLOOD COUNT 8.72 10^3uL (4.0-11.0)
[2017-03-13] MEDS: PANTOPRAZOLE 40 MG (PROTONIX) TAB PO SCH (06:15)
[2017-03-13 06:23] LABS: BAND NEUTROPHILS % 1 % (0-6); EOSINOPHILS % 2 % (0-4); MONOCYTES # 0.1 #; MONOCYTES % 1 % (3-11); RBC MORPH NORMAL (NORMAL); SEGMENTED NEUTROPHILS % 85 % (51-67); TOTAL CELLS COUNTED 100
[2017-03-13 06:33] LABS: ALBUMIN 2.6 g/dL (3.4-5.0); ANION GAP 11.6 MEQ/L (3-15); CALCULATED IONIZED CALCIUM 4.3 mg/dL (3.8-4.6); MAGNESIUM* 2.2 mg/dL (1.6-2.3); TOTAL PROTEIN 4.8 g/dL (6.4-8.5)
--- NOTE | 2017-03-13 06:36 | NUR ---
Patient with uneventful shift, rests in bed throughout night. Expresses excitement over going home today. No needs at this time. Sitting up in chair without needs.
[2017-03-13] MEDS ORDERED: FURO40TA4 PO (07:46)
[2017-03-13] MEDS ORDERED: PRED10TA PO (07:46)
[2017-03-13] MEDS ORDERED: NF-CARBPE EACH EAR (07:46)
[2017-03-13] MEDS ORDERED: OXC5T PO (07:46)
[2017-03-13] MEDS ORDERED: MAGN800O PO (07:55)
[2017-03-13] MEDS ORDERED: IPRA0.2S18 INH (07:55)
[2017-03-13] MEDS ORDERED: DOCU100T2 PO (07:55)
--- NOTE | 2017-03-13 07:57 | Discharge Instructions (E) ---
Discharge Instructions Instructions * You were evaluated and treated for decreased strength and endurance in skilled care. You improved and are being discharged home. * You had a follow-up chest x-ray before discharge that showed a small amount of edema in your lungs. Pneumonia was considered but felt less likely. It is recommended that at home you continue to use incentive spirometry to help exercise your lungs. Try to do these deep breathing exercises at least 4 times daily. Review the provided handout for details. * You had a temporal artery biopsy to test whether you had a condition called giant cell arteritis (also called temporal arteritis.) The biopsy was negative. Because of the negative biopsy and because you haven't had any improvement with higher dose prednisone, it is felt that you may not have this condition. Your dose of prednisone should be tapered as directed back to your regular dose of 20 mg daily. * You have pain in your back and ribs and this might be related to your cancer. Be sure to discuss these symptoms with your oncologist. At discharge you were prescribed oxycodone/acetaminophen and oxycodone. Review the provided handouts for details. Use caution with these narcotic medications since you also already take a fentanyl patch. * Narcotic pain medications can cause constipation. You can use over-the- counter stool softeners as directed to treat constipation. Activity Instructions As tolerated. Doctor's Appointment Follow-up with oncology per your previous schedule. Follow-up with your primary care doctor in 3-5 days. Discharge Diet: CHET Camargo MD March 13, 2017 07:56
[2017-03-13] MEDS ORDERED: predniSONE 20 MG (DELTASONE) TABLET PO SCH (08:00)
[2017-03-13] MEDS: BUDESONIDE NEBS 0.25 MG/2 ML (PULMICORT) AMP INH SCH (08:50)
[2017-03-13] MEDS: IPRATROPIUM 0.02% NEB SOLN 0.5 MG/2.5 ML (ATROVENT) INH SCH (08:50)
[2017-03-13] MEDS: ARFORMOTEROL NEB SOLUTION (BROVANA) 15 MCG/2 ML VIAL IH SCH (08:50)
--- NOTE | 2017-03-13 08:52 | NUR ---
BS Clear, SpO2 97% with patient sitting up in chair.
[2017-03-13] MEDS: NYSTATIN ORAL SUSPENSION 5 ML UDC PO SCH (09:00)
--- NOTE | 2017-03-13 09:10 | NUR ---
SpO2 93-94% on 4Lm, decreased back to 3Lpm Cann[place].
[2017-03-13] MEDS: TAMSULOSIN 0.4 MG (FLOMAX) CAP PO SCH (09:15)
[2017-03-13] MEDS: POLYETHYLENE GLYCOL 17 GM (MIRALAX) PACKET PO SCH (09:16)
[2017-03-13] MEDS: AZITHROMYCIN 250 MG TAB (ZITHROMAX) PO SCH (09:16)
[2017-03-13] MEDS: FUROSEMIDE 20 MG (LASIX) TAB PO SCH (09:16)
[2017-03-13] MEDS: CALCIUM CARBONATE 500 MG + VITAMIN D 200 IU TABLET PO SCH (09:16)
[2017-03-13] MEDS: ENOXAPARIN 40 MG/0.4 ML (LOVENOX) SYR SC SCH (09:17)
[2017-03-13] MEDS: BRINZOLAMIDE 1% OU SCH (09:19)
[2017-03-13] MEDS: BRIMONIDINE 0.2% OU SCH (09:20)
[2017-03-13] MEDS: CARBAM PEROX/GLYC/PROP 15 ML DROPS (DEBROX) EACH EAR SCH (09:20)
[2017-03-13 09:24] VITALS: BP 119/55
--- NOTE | 2017-03-13 10:20 | Physical Therapy Evaluation(E) ---
Discharge Summary Service Date/Time 03/13/17, 10:09 Primary Diagnosis: (1) Community acquired pneumonia ICD Code: J18.9 (2) Acute respiratory distress ICD Code: J80 (3) Physical deconditioning ICD Code: R53.81 Treatment Diagnosis: (1) Hypoxia ICD Code: R09.02 (2) Physical deconditioning ICD Code: R53.81 (3) Fatigue (4) Weakness ICD Code: R53.1 (5) Acute respiratory distress ICD Code: J80 (6) Community acquired pneumonia ICD Code: J18.9 Onset Date: 03/01/2017 Start of Service Date: March 07, 2017 Summary of Progress Summary Comment The patient has made excellent progress in physical therapy. He is no longer dependent on supplemental 02. He is able approximately 200 feet without AD maintaining 02 saturation above 90% and appropriate HR elevation. He has met all of short term and emt intermediate goals related to transfers and ambulation. Distance Walked in Feet 200 feet without rest break without AD . Assistive Device: None Assist: Supervision Required Gait Description: Unsteady Gait Limitations: Fatigue Lower extremity strength reassessed as follows: hip flexion on right 4/5, left 5 /5, knee flexion/extension, and ankle dorsiflexion strength bilaterally 5/5. Transfer STG and Status Sitting Edge of Bed: Modified [place] Goal Status at Discharge: Goal Met Supine-Sit: Modified [place] Goal Status at Discharge: Goal Met Sit-Stand from bed: Modified [place] Goal Status at Discharge: Goal Met Stand-Sit: Modified [place] Goal Status at Discharge: Goal Met Ambulation: Supervision or setup Goal Status at Discharge: Goal Met Goal Status at Discharge: Goal Met Comment Additional therapy goals: 1) Patient will ambulate 30 feet with independence without AD to return to prior functional level. -met , patient able ambulate over 150 feet without AD 2) Patient will traverse three entry steps with hand rail with supervision - met. 3) patient will tolerate greater than or equal to 5 minutes of standing activity without 02desaturation. - approximately 10 minutes of moderate intensity with standing rest break Plan of Care Goals and Status STG: Plan-Treatment Functional: Trans. Safe w/ AD Goal Status at Discharge: Goal Met LTG Functional Outcomes Reviewed HEP with the patient and encouraged him to continue with household ambulation throughout the day. Discharge Recommendations: Caregiver support Service Recommendations: DC Services (The patient is functioning at an appropriate level for him to be functional at his home. ) Coding Time In: 1006 Time Out: 1031 Total Minutes: 25 PT assisted patient with donning compression socks at end of session. Patient is discharged from PT at this time. MARYA TIERNEY PT March 13, 2017 10:20
--- NOTE | 2017-03-13 12:31 | NUR ---
Discharge instructions read and the patient is escorted out of the building at this time. Care relinquished.
--- NOTE | 2017-03-13 15:25 | Progress Note-A/P (E) ---
Progress Note Subjective Subjective patient seen today, no new c.c. he still has a weak left knee that hyperextends and needs stabilizing brace forever. Objective VS Vital Signs Date Time Temp Pulse Resp B/P Pulse Ox O2 Delivery O2 Flow Rate FiO2 03/13/17 09:24 96.9 86 20 119/55 94 Room air 03/12/17 07:39 0.00 I&O Laboratory Results Past 24 Hrs 03/13/17 05:35: Absolute Band Neutrophils 0.1, Alanine Aminotransferase (ALT/SGPT) 16, Albumin 2.6, Albumin/Globulin Ratio 1.181, Alkaline Phosphatase 216, Anion Gap 11.6, Aspartate Amino Transf (AST/SGOT) 7, BUN/Creatinine Ratio 28, Band Neutrophils % 1, Basophils # (Manual) 0.0, Basophils % (Manual) 0, Blood Morphology Comment Normal, Blood Urea Nitrogen 27, Calcium Level 8.0, Calcium/Ionized Calcium Ratio 4.3, Calculated Osmolality 273, Carbon Dioxide Level 28, Chloride Level 102, Creatinine 0.95, Differential Total Cells Counted 100, Eosinophils # 0.2, Eosinophils % (Manual) 2, Estimat Glomerular Filtration Rate 91.4, Estimated GFR (Non- 75.5, Glucose Level 110, Hematocrit 29.10, Hemoglobin 9.3, Lactate Dehydrogenase 576, Lymphocytes # 1.0, Lymphocytes % (Manual) 11, Magnesium Level 2.2, Mean Corpuscular Hemoglobin 30.6, Mean Corpuscular Hemoglobin Concent 32.0, Mean Corpuscular Volume 96, Mean Platelet Volume 8.9, Metamyelocytes % 0, Monocytes # 0.1, Monocytes % (Manual) 1, Neutrophils # 7.4, Phosphorus Level 4.1, Platelet Count 315, Potassium Level 4.2, Prostate Specific Antigen Screen 66.3, Red Blood Count 3.04, Red Cell Distribution Width 14.3, Segmented Neutrophils % 85, Sodium Level 138, Total Bilirubin 0.4, Total Protein 4.8, White Blood Count 8.72 Current Medications no new labs at this time General Awake, alert, oriented to person, place, and situation. 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 Neuro lower body muscle weakness from polio and post synaptic degeneration and subsequent muscle atrophy Musculoskeletal noted above in both HPI and daily progress notes . Labs, Most Recent- Laboratory Results Past 24 Hrs 03/13/17 05:35: Absolute Band Neutrophils 0.1, Alanine Aminotransferase (ALT/SGPT) 16, Albumin 2.6, Albumin/Globulin Ratio 1.181, Alkaline Phosphatase 216, Anion Gap 11.6, Aspartate Amino Transf (AST/SGOT) 7, BUN/Creatinine Ratio 28, Band Neutrophils % 1, Basophils # (Manual) 0.0, Basophils % (Manual) 0, Blood Morphology Comment Normal, Blood Urea Nitrogen 27, Calcium Level 8.0, Calcium/Ionized Calcium Ratio 4.3, Calculated Osmolality 273, Carbon Dioxide Level 28, Chloride Level 102, Creatinine 0.95, Differential Total Cells Counted 100, Eosinophils # 0.2, Eosinophils % (Manual) 2, Estimat Glomerular Filtration Rate 91.4, Estimated GFR (Non- 75.5, Glucose Level 110, Hematocrit 29.10, Hemoglobin 9.3, Lactate Dehydrogenase 576, Lymphocytes # 1.0, Lymphocytes % (Manual) 11, Magnesium Level 2.2, Mean Corpuscular Hemoglobin 30.6, Mean Corpuscular Hemoglobin Concent 32.0, Mean Corpuscular Volume 96, Mean Platelet Volume 8.9, Metamyelocytes % 0, Monocytes # 0.1, Monocytes % (Manual) 1, Neutrophils # 7.4, Phosphorus Level 4.1, Platelet Count 315, Potassium Level 4.2, Prostate Specific Antigen Screen 66.3, Red Blood Count 3.04, Red Cell Distribution Width 14.3, Segmented Neutrophils % 85, Sodium Level 138, Total Bilirubin 0.4, Total Protein 4.8, White Blood Count 8.72 24 Hr Result Diagram CBC BMP Last 24 Hrs 03/13/17 05:35 Impressions continue to condition and I want patient fitted with stabilizing left knee brace. VENITA JUNG DO March 13, 2017 15:25
--- NOTE | 2017-03-14 09:23 | Discharge Summary (E) ---
Discharge Summary (E) Admit Date/Time March 06, 2017 at 16:30 Discharge Date/Time March 13, 2017 at 12:26 Admitting Provider Dm Forbes MD Primary Care Provider Valdez Gallo MD Attending Provider Dm Forbes MD Consulting Provider History and Present Illness Pranav Breen is a 86 year old male admitted to long-term 03/06 after acute hospitalization 02/28-03/06 for SIRS/sepsis and acute respiratory distress attributed to community acquired pneumonia and COPD exacerbation. He also had workup for concern of giant cell arteritis as a possible etiology for decline in visual acuity. He improved with therapies as outlined but was felt to benefit from close medical supervision of his chronic and resolving acute medical conditions as well as further rehab with PT/OT. He had good improvement in strength and endurance with rehab. He continued to take prednisone 60 mg daily but had no clinical change in vision. With negative biopsy and with no visual change, giant cell arteritis is felt less likely and dose of prednisone was tapered at discharge so he'll resume his prior 20 mg daily dose after about 1 week. Pneumonia symptoms resolved and follow-up CXR was stable. He completed 10 total days of antibiotic therapy with meropenem, then cefdinir. He had some left-sided back pain and rib pain but this was attributed to metastatic prostate cancer. He was prescribed oxycodone IR and oxycodone/acetaminophen for pain and is already on fentanyl patch. Additional issues are as outlined below. Hospital Course and Treatment * Deconditioning: Improved with PT/OT eval and treat. * Acute Respiratory Distress: Resolved. SpO2 was 84% on acute admit and required 2 L NC but by the time of discharge, improved to > 90% on room air. Was on room air throughout his shilled stay. * Dyspnea on Exertion: Considered developing heart failure or worsening pulmonary hypertension. New echo showed LVEF 60% and RVSP of 29 mmHg which were both reassuring. Already has home oxygen. * Community Acquired Pneumonia: Resolved. Blood culture negative. No sputum culture obtained. Resp PCR panel was negative. On meropenem on acute admit given prior infectious disease history. De-escalated to cefdinir. Extended on transition to skilled care to complete a full 10-day course. Follow-up CXR was performed before discharge with results as noted. * COPD/Asthma with Acute Exacerbation: Guaifenesin. Arformoterol, budesonide. Albuterol PRN. On transition to skilled care, added ipratropium neb BID. Continued this at discharge. * Elevated ESR, Elevated CRP, Possible Giant Cell Arteritis: ESR 72. CRP 22.20. Giant cell arteritis less likely, on the basis of history, exam, and biopsy result (which was negative for arteritis.) Had just unilateral biopsy which decreases sensitivity. No improvement with prednisone 40 mg but typical dose would be 1 mg/kg, max 60 mg. Treated at 60 mg x 1 week. With no visual improvement, planned at discharge to taper back to 20 mg PO daily, his chronic prednisone dose. * Decreased visual acuity: Sees Dr. Yoo. MRI/MRA as noted. Workup and empiric therapy for giant cell arteritis as noted. Had been taking ethambutol which can cause blindness. This may be the culprit. Relayed records to Dr. Yoo. Prednisone plan as outlined above. Follow-up with Dr. Yoo after discharge. * BLE Edema: Chronic, stable, attributed to chronic lung disease. New echo pending at the time of transition to skilled care. Encourage compression hose in skilled care. Cautious diuresis with furosemide started 03/06. Furosemide continued at discharge. * F/E/N: Regular diet. I&O, daily weight. * Prophylaxis: Enoxaparin * Code Status: Full code. * Disposition: halfway. Discharged home. CHRONIC ISSUES * MAC: Azithromycin, chronic. No longer taking ethambutol. * Prostate Cancer, Stage 4, Metastatic: Follows with Dr. Davidson at [facility]. Takes abiraterone (Zytiga). PSA was checked prior to discharge and appears to be trending down. * BPH: Tamsulosin * Chronic Pain, OA: Oxycodone/acetaminophen, fentanyl patch * Lower extremity edema: Compression hose. * Umbilical Hernia: Observe. 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 Bowel regimen. * Glaucoma: Brinzolamide, brimonidine. * Hypotension: Midodrine was stopped at discharge because BP was stable. * Depression: Mirtazapine Discharge Physicial Exam General Vital Signs Date Time Temp Pulse Resp B/P Pulse Ox O2 Delivery O2 Flow Rate FiO2 03/13/17 09:24 96.9 86 20 119/55 94 Room air 03/12/17 07:39 0.00 GEN: Awake, interactive, oriented. NAD at present. Dressed in home clothes. HEENT: EOMI, clear sclerae, mildly dry oral mucosa. Left gnosticism incision well- healing. CV: Regular without significant murmur. PULM: Diminished throughout, no R/R/W. ABD: Soft, NT/ND with normal bowel sounds. EXTR: 2+ BLE edema. Compression hose on. INTEG: Age related changes. NEURO: No focal motor neuro deficit. 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 Weight: 93.8 kg (92.4 kg on acute admit.) Laboratory/Radiology Data Laboratory Results-14 Days 03/07/17 05:40: Albumin 2.6L, Anion Gap 10.2, Blood Urea Nitrogen 17, Calcium Level 8.2L, Carbon Dioxide Level 32H, Chloride Level 102, Creatinine 0.89, Estimat Glomerular Filtration Rate 98.5, Estimated GFR (Non- 81.4, Glucose Level 97, Magnesium Level 2.2, Phosphorus Level 3.9, Potassium Level 3.9 , Sodium Level 140 03/09/17 05:20: Albumin 2.7L, Anion Gap 10.3, Blood Urea Nitrogen 20H, Calcium Level 7.6L, Carbon Dioxide Level 30H, Chloride Level 103, Creatinine 0.88, Estimat Glomerular Filtration Rate 99.8, Estimated GFR (Non- 82.5, Glucose Level 96, Magnesium Level 2.4H, Phosphorus Level 3.4, Potassium Level 3.6, Sodium Level 140 03/12/17 15:10: Albumin 3.2L, Anion Gap 13.1, Blood Urea Nitrogen 26H, Calcium Level 8.2L, Carbon Dioxide Level 30H, Chloride Level 102, Creatinine 1.14, Estimat Glomerular Filtration Rate 74.1, Estimated GFR (Non- 61.2, Glucose Level 248#H, Potassium Level 4.7#, Sodium Level 140, Absolute Band Neutrophils 0.6, Alanine Aminotransferase (ALT/SGPT) 18L, Albumin/Globulin Ratio 1.103, Alkaline Phosphatase 253H, Aspartate Amino Transf (AST/SGOT) 11L, BUN/Creatinine Ratio 23H, Band Neutrophils % 6, Basophils # (Auto) , Basophils # (Manual) 0.0, Basophils % (Manual) 0, Basophils (%) (Auto) , Blood Morphology Comment Normal, C-Reactive Protein 2.60H, Calcium/Ionized Calcium Ratio 3.9, Calculated Osmolality 283, Differential Total Cells Counted 100, Eosinophils # 0.1, Eosinophils # (Auto) , Eosinophils % (Manual) 1, Eosinophils (%) (Auto) , Hematocrit 32.20L, Hemoglobin 10.2L, Lymphocytes # 1.0, Lymphocytes # (Auto) , Lymphocytes % (Manual) 10L, Lymphocytes (%) (Auto) , Mean Corpuscular Hemoglobin 30.4, Mean Corpuscular Hemoglobin Concent 31.7, Mean Corpuscular Volume 96, Mean Platelet Volume 8.8, Metamyelocytes % 2H, Monocytes # 0.6, Monocytes # (Auto) , Monocytes % (Manual) 6, Monocytes (%) (Auto) , NT-Pro-B- Type Natriuretic Peptide 319, Neutrophils # 7.7, Neutrophils # (Auto) , Neutrophils (%) (Auto) , Platelet Count 341, Red Blood Count 3.35L, Red Cell Distribution Width 14.4, Segmented Neutrophils % 75H, Smear Scan , Total Bilirubin 0.6, Total Protein 6.1L, White Blood Count 10.20 03/13/17 05:35: Albumin 2.6L, Anion Gap 11.6, Blood Urea Nitrogen 27H, Calcium Level 8.0L, Carbon Dioxide Level 28, Chloride Level 102, Creatinine 0.95, Estimat Glomerular Filtration Rate 91.4, Estimated GFR (Non- 75.5, Glucose Level 110#, Magnesium Level 2.2, Phosphorus Level 4.1#, Potassium Level 4.2, Sodium Level 138, Absolute Band Neutrophils 0.1, Alanine Aminotransferase ( ALT/SGPT) 16L, Albumin/Globulin Ratio 1.181, Alkaline Phosphatase 216H, Aspartate Amino Transf (AST/SGOT) 7L, BUN/Creatinine Ratio 28H, Band Neutrophils % 1, Basophils # (Manual) 0.0, Basophils % (Manual) 0, Blood Morphology Comment Normal, Calcium/Ionized Calcium Ratio 4.3, Calculated Osmolality 273L, Differential Total Cells Counted 100, Eosinophils # 0.2, Eosinophils % (Manual) 2, Hematocrit 29.10L, Hemoglobin 9.3L, Lymphocytes # 1.0 , Lymphocytes % (Manual) 11L, Mean Corpuscular Hemoglobin 30.6, Mean Corpuscular Hemoglobin Concent 32.0, Mean Corpuscular Volume 96, Mean Platelet Volume 8.9, Metamyelocytes % 0, Monocytes # 0.1, Monocytes % (Manual) 1L, Neutrophils # 7.4, Platelet Count 315, Red Blood Count 3.04L, Red Cell Distribution Width 14.3, Segmented Neutrophils % 85H, Total Bilirubin 0.4, Total Protein 4.8L, White Blood Count 8.72, Lactate Dehydrogenase 576, Prostate Specific Antigen Screen 66.3H IMAGING 03/12/17 CHEST PA/LAT (2 VIEW)* INDICATION: Pulmonary edema, metastatic cancer. COMPARISON: February 28, 2017. TECHNIQUE: Three radiographs of the chest were obtained dated March 12, 2017. FINDINGS: The cardiac silhouette is stable. No significant pulmonary vascular congestion. Background chronic obstructive pulmonary disease with associated pulmonary hyperinflation is again identified. Blunting of the bilateral costophrenic angles, increased on the right. Slightly increased density is identified within the right lung base when compared to the prior examination. Additional background of predominantly interstitial opacities appear similar to the prior examination. Extensive sclerosis of the osseous structures is again identified without acute osseous abnormality. IMPRESSION: 1. Developing right basilar atelectasis and/or pneumonitis with associated developing trace bibasilar pleural effusions. 2. Extensive sclerosis of the osseous structures, felt to relate to osseous metastatic disease. 3. Background chronic obstructive pulmonary disease. 03/06/17 ECHO: Summary: Technically adequate study. Left atrial enlargement. Mild aortic root enlargement. Normal LV wall thickness. Intat LV systolic function with estimated EF 60%. Aortic valve sclerosis with no stenosis or insufficiency. Mitral annular calcification with mild mitral insufficiency. Mild tricuspid insufficiency. Normal PA systolic pressure, estimated at 29 mmHg. No pericardial effusion. 02/28/17 CHEST 1 VIEW, AP/PA ONLY* INDICATION: Shortness of breath and chest pain. TECHNIQUE: A frontal chest was obtained at 0842 hours. COMPARISON: 2015. FINDINGS: There are scattered sclerotic changes in the visualized bony structures, compatible with bony metastatic disease. The heart is mildly enlarged. There is some patchy infiltrate or atelectasis in both lung bases. There is no pneumothorax or pleural fluid. IMPRESSION: Mild cardiomegaly. Patchy infiltrate versus atelectasis in both lung bases which appears at least partially chronic compared to the previous study. There are sclerotic bony changes overlying the rib cage and thoracic spine, compatible with bony metastatic disease. Correlate with the recent CT study of 02/06/2017. Discharge Disposition Discharged home. Instructions * You were evaluated and treated for decreased strength and endurance in skilled care. You improved and are being discharged home. * You had a follow-up chest x-ray before discharge that showed a small amount of edema in your lungs. Pneumonia was considered but felt less likely. It is recommended that at home you continue to use incentive spirometry to help exercise your lungs. Try to do these deep breathing exercises at least 4 times daily. Review the provided handout for details. * You had a temporal artery biopsy to test whether you had a condition called giant cell arteritis (also called temporal arteritis.) The biopsy was negative. Because of the negative biopsy and because you haven't had any improvement with higher dose prednisone, it is felt that you may not have this condition. Your dose of prednisone should be tapered as directed back to your regular dose of 20 mg daily. * You have pain in your back and ribs and this might be related to your cancer. Be sure to discuss these symptoms with your oncologist. At discharge you were prescribed oxycodone/acetaminophen and oxycodone. Review the provided handouts for details. Use caution with these narcotic medications since you also already take a fentanyl patch. * Narcotic pain medications can cause constipation. You can use over-the- counter stool softeners as directed to treat constipation. Activity Instructions As tolerated. Appointments Follow-up with oncology per your previous schedule. Follow-up with your primary care doctor in 3-5 days. Discharge Diet: Regular Discharge Medications New Medications: Docusate Sodium (Docusate Sodium) 100 Mg Tablet 100 MG PO BID PRN CONSTIPATION #0 Ref 0 TAB Magnesium Hydroxide (Milk Of Magnesia) 2,400 Mg/10 Ml Oral.susp 2400 MG PO QID PRN CONSTIPATION #0 Ref 0 ML Carbam Perox/Glycer/Prop Glyc (Debrox Otic Drops) 15 Ml Drops 0 ML EACH EAR BID #0 Ref 0 DROPS Ipratropium [place] (Atrovent 0.5mg/2.5ml) 0.5 Mg/2.5 Ml Nebu 0.5 MG INH BID #60 Ref 0 VIAL Oxycodone HCl (OxyIR) 5 Mg Tab 10 MG PO Q8H PRN PAIN #15 Ref 0 TAB Changed Medications: Furosemide (Furosemide) 40 Mg Tablet 40 MG PO DAILY Take daily until seen by your primary care doctor. #30 Ref 0 TAB (Changed from: 20-40 MG; Removed Reason; Refills: ) Prednisone (Prednisone) 10 Mg Tablet 40 MG PO DAILY Take 40 mg daily x 3 days, then 30 mg daily x 3 days, then resume your home dose of 20 mg daily thereafter. #30 Ref 0 TAB (Changed from: 20 MG; Refills: ) Continued Medications: Albuterol Sulfate (Albuterol Sulfate) 1.25 Mg/3 Ml Vial.neb 1.25 MG IH QID PRN DYSPNEA Ref 0 VIAL Arformoterol Tartrate (Brovana) 15 Mcg/2 Ml Vial.neb 15 MCG IH BID VIAL Azithromycin (Azithromycin) 250 Mg Tablet 250 MG PO DAILY Infection Ref 0 TAB Brinzolamide/Brimonid Tart (Simbrinza 1%-0.2% Eye Drops) 8 Ml Drops.susp 1 DROP OU DAILY Budesonide (Pulmicort) 0.25 Mg/2 Ml Ampul.neb 0.25 MG IH BID VIAL Calcium Carbonate/Vitamin D3 (Calcium 600 + D3 Softgel) 1 Each Capsule 1 EACH PO BID CAP Fentanyl (Fentanyl Patch 75mcg/hr) 75 Mcg/Hr Patch.td72 1 EACH TD Q72H PATCH Guaifenesin (Mucinex) 600 Mg Tab 600 MG PO BID PRN COUGH TAB Lorazepam (Ativan) 0.5 Mg Tablet 0.5 MG PO Q8H PRN ANXIETY #15 Ref 0 TAB Mirtazapine (Mirtazapine) 15 Mg Tablet 15-30 MG PO HS TAB Nystatin (Mycostatin 100,000 units/ml) 100,000 Unit/1 Ml Oral.susp 5 ML PO BID swish and swallow BTL Omeprazole (Omeprazole) 40 Mg Capsule.dr 40 MG PO DAILY CAP Oxycodone HCl/Acetaminophen (Percocet 10mg/325mg) 1 Tab Tablet 1 TAB PO Q4H PRN PAIN Ref 0 TAB Polyethylene Glycol 3350 (Miralax) 17 Gm Powd.pack 17 GM PO BID Constipation Ref 0 PKT Tamsulosin HCl (Tamsulosin HCl) 0.4 Mg Cap.er.24h 0.4 MG PO DAILY Discontinued Medications: Hydrocodone/Acetaminophen ([place] 7.5mg/325mg) 1 Ea Tablet 2 TAB PO BID PRN PAIN Ref 0 TAB Midodrine HCl (Midodrine HCl) 10 Mg Tablet 10 MG PO TID TAB Discharge Diagnosis See list above. Problems: Copies to: Additional Provider: DAMIR DAVIDSON MD End of Report . DM FORBES MD March 14, 2017 09:23
== END 2017-03-13 12:26 | disposition home or self-care (01) | DRG 190 ==
LOC: MED/SURG 16:30
PROVIDERS: ADMIT Internal Medicine; ATTEND Internal Medicine
DX: J44.0 Chronic obstructive pulmonary disease with (acute) lower respiratory infection (principal); J18.9 Pneumonia, unspecified organism; J45.901 Unspecified asthma with (acute) exacerbation; C79.51 Secondary malignant neoplasm of bone; J44.1 Chronic obstructive pulmonary disease with (acute) exacerbation; I27.2 Other secondary pulmonary hypertension; N40.0 Benign prostatic hyperplasia without lower urinary tract symptoms; C61 Malignant neoplasm of prostate; H54.0 Blindness, both eyes; R70.0 Elevated erythrocyte sedimentation rate; Z87.891 Personal history of nicotine dependence
CPT/HCPCS: 36415; 71020; 80053; 80069; 83615; 83735; 83880; 84100; 84153; 85007; 85025; 85027; 86140; 94640

== ENCOUNTER → 2017-03-17 | Outpatient (CLI) | payer MEDICARE, OTHER ==
[~2017-03-17] MED LIST changes: +DOCU100T2 PO; +IPRA0.2S18 INH; +MAGN800O PO; +NF-CARBPE EACH EAR; +OXC5T PO
--- NOTE | 2017-03-17 18:50 | Diagnostic Imaging Report ---
PROCEDURE: MR imaging lumbar spine with contrast. TECHNIQUE: Multiplanar, multisequence MR imaging of the lumbar spine was performed with contrast. INDICATION: Low back pain, bilateral hip pain. FINDINGS: Axial and sagittal post IV contrast-enhanced T1-weighted acquisitions were performed without fat saturation. There is marked heterogeneous infiltration and enhancement throughout the visualized lumbar spine involving its vertebral bodies, pedicles, and posterior elements as well as the visualized portions of the sacrum given the history, presumptively reflective of severe widespread bony involvement by metastatic disease. Vertebral statures however were normal and there were no findings of pathological fracture at this limited exam. There was no epidural mass. No intrathecal neoplasm found. There is involvement of the partially visualized tops of the posterior iliac bones. IMPRESSION: Extensive involvement by metastatic disease at all vertebral body levels diffusely. No pathological fracture however and no malalignment and no adjacent soft tissue mass. No evidence for epidural or intrathecal involvement by neoplasm at this exam. Dictated by: Dictated on workstation # [id number]
== END ==
LOC: RAD 08:56
PROVIDERS: ATTEND Internal Medicine Hematology & Oncology
DX: M54.5 Low back pain (principal)
CPT/HCPCS: 72149; A9579